=== PATIENT | female | born 1940 | race American Indian/Alaskan Native ===

== ENCOUNTER 2018-12-11 20:59 | Inpatient (IN) | payer MEDICARE ==
[2018-12-11] MEDS ORDERED: DIPRIVAN 10 MG/ML 1,000 MG/100 ML BOTTLE IV SCH ×2 (21:10→22:00)
[2018-12-11] MEDS ORDERED: DIPRIVAN 10 MG/ML 1,000 MG/100 ML BOTTLE IV ONE (21:14)
[2018-12-11] MEDS ORDERED: LEVOPHED DRIP 4 MG/NS 250 ML 4 MG/250 ML BAG IV ONE (21:20)
[2018-12-11] MEDS ORDERED: NACL 0.9% 1000 ML 1,000 ML IV ONE ×2 (21:25→22:31)
[2018-12-11] MEDS ORDERED: LEVOPHED DRIP 4 MG/NS 250 ML 4 MG/250 ML BAG IV SCH (21:25)
[2018-12-11] MEDS ORDERED: ASPIRIN PR ONE ×2 (21:25→23:00)
[2018-12-11] MEDS ORDERED: ARTIFICIAL TEARS OPHTH OINT OU PRN (21:26)
[2018-12-11] MEDS ORDERED: VASELINE LIP THERAPY TP PRN ×2 (21:26→21:59)
[2018-12-11 21:35] LABS: Hematocrit 30.8 % (30.3-42.9); Hemoglobin 10.2 gm/dl (10.1-14.3); Mean Corpuscular HGB Conc 33 % (30-34); Mean Corpuscular Volume 90 fl (79-97); Platelet Count 147 K/mm3 (140-440); Red Blood Count 3.44 M/mm3 (3.65-5.03); Red Cell Distribution Width 17.9 % (13.2-15.2)
[2018-12-11 21:45] LABS: INR 1.58 (0.87-1.13); Partial Thromboplastin Time 31.5 Sec. (24.2-36.6)
[2018-12-11 21:58] LABS: Alanine Aminotransferase 12 units/L (7-56); Albumin 3.4 g/dL (3.9-5); BUN/Creatinine Ratio 13; Blood Urea Nitrogen 18 mg/dL (7-17); Calcium 8.6 mg/dL (8.4-10.2); Hemolysis Index 22
--- NOTE | 2018-12-11 22:14 | Emergency Department Report ---
ED General Adult HPI - General Chief complaint: Cardiac Arrest/CPR Stated complaint: CARDIAC ARREST Time Seen by Provider: 12/11/18 21:24 Source: EMS Mode of arrival: Stretcher Limitations: Physical Limitation - History of Present Illness Initial comments: Patient is a 78-year-old female with past medical history of coronary disease status post three-vessel CABG in 2007 and a pacemaker placed in 2016 who is here's after cardiac arrest. The daughter states that they're traveling from [place]. Patient was having some chest discomfort and shortness of breath yesterday and a jamia and was seen the emergency department. Patient had "some testing done which was okay" according to her daughter. They wanted to interrogate her device however they were unable to the patient was eventually discharged back with family. Patient's according to her daughter who was feeling much improved this morning and was reactive. [place] hotel and after a long walk started feeling ill again. Patient was very weak and fatigued. Daughter states that she had an episode where she was losing consciousness and eventually stop breathing. There is no seizure-like activity noted. Medics were called and the patient was in V. tach on their arrival. Patient was shocked 5 times. Patient started on amiodarone. The patient on arrival had return of spontaneous circulation. Patient was unresponsive but did have a slight gag during intubation. Patient had no purposeful movements and would not open her eyes on command. Is unknown whether the patient had a chest pain shortness of breath today as family is unable to provide this information. Severity scale (0 -10): 0 - Related Data Home Medications Medication Instructions Recorded Confirmed Last Taken Apixaban [Eliquis] 5 mg PO BID 12/11/18 12/11/18 12/11/18 Carvedilol [Coreg] 3.125 mg PO BID 12/11/18 12/11/18 12/11/18 Clopidogrel [Plavix] 75 mg PO QDAY 12/11/18 12/11/18 12/11/18 Digoxin [Lanoxin] 0.125 mg PO DAILY 12/11/18 12/11/18 12/11/18 Donepezil [Aricept] 5 mg PO QDAY 12/11/18 12/11/18 12/11/18 Escitalopram [Lexapro] 20 mg PO DAILY 12/11/18 12/11/18 12/11/18 Fluticasone [Flonase] 1 spray NS QDAY 12/11/18 12/11/18 12/11/18 Fluticasone/Umeclidin/Vilanter 1 each IH PRN 12/11/18 12/11/18 12/11/18 [Trelegy Ellipta 100-62.5-25] Furosemide [Lasix] 20 mg PO QDAY 12/11/18 12/11/18 12/11/18 Lactulose 10 gm PO TID 12/11/18 12/11/18 12/11/18 Levothyroxine [Synthroid] 50 mcg PO QAM 12/11/18 12/11/18 12/11/18 Memantine [Namenda] 10 mg PO BID 12/11/18 12/11/18 12/11/18 Midodrine [Proamatine] 2.5 mg PO BID 12/11/18 12/11/18 12/11/18 Montelukast [Singulair] 10 mg PO QPM 12/11/18 12/11/18 12/11/18 Nitroglycerin [Nitrostat] 0.4 mg SL Q5M PRN 12/11/18 12/11/18 12/11/18 Nortriptyline HCl [Pamelor] 75 mg PO DAILY 12/11/18 12/11/18 12/11/18 Pantoprazole [Protonix] 40 mg PO QDAY 12/11/18 12/11/18 12/11/18 Potassium Chloride [K-Dur] 20 meq PO QDAY 12/11/18 12/11/18 12/11/18 Rosuvastatin Calcium [Crestor] 20 mg PO DAILY 12/11/18 12/11/18 12/11/18 busPIRone [Buspar] 10 mg PO BID 12/11/18 12/11/18 12/11/18 Allergies Allergy/AdvReac Type Severity Reaction Status Date / Time Penicillins Allergy Itching Verified 07/10/16 20:01 theophylline Allergy Itching Verified 07/10/16 20:01 ED Review of Systems ROS: Stated complaint: CARDIAC ARREST Other details as noted in HPI Comment: Unobtainable due to pts medical conditions ED Past Medical Hx - Past Medical History Hx Hypertension: Yes Hx Heart Attack/AMI: Yes Hx Asthma: Yes Hx COPD: Yes - Surgical History Hx Coronary Stent: Yes Hx Open Heart Surgery: Yes Hx Pacemaker: Yes Additional Surgical History: thyroid. - Social History Smoking Status: Unknown if ever smoked - Medications Home Medications: Home Medications Medication Instructions Recorded Confirmed Last Taken Type Apixaban [Eliquis] 5 mg PO BID 12/11/18 12/11/18 12/11/18 History Carvedilol [Coreg] 3.125 mg PO BID 12/11/18 12/11/18 12/11/18 History Clopidogrel [Plavix] 75 mg PO QDAY 12/11/18 12/11/18 12/11/18 History Digoxin [Lanoxin] 0.125 mg PO DAILY 12/11/18 12/11/18 12/11/18 History Donepezil [Aricept] 5 mg PO QDAY 12/11/18 12/11/18 12/11/18 History Escitalopram [Lexapro] 20 mg PO DAILY 12/11/18 12/11/18 12/11/18 History Fluticasone [Flonase] 1 spray NS QDAY 12/11/18 12/11/18 12/11/18 History Fluticasone/Umeclidin/Vilanter 1 each IH PRN 12/11/18 12/11/18 12/11/18 History [Trelegy Ellipta 100-62.5-25] Furosemide [Lasix] 20 mg PO QDAY 12/11/18 12/11/18 12/11/18 History Lactulose 10 gm PO TID 12/11/18 12/11/18 12/11/18 History Levothyroxine [Synthroid] 50 mcg PO QAM 12/11/18 12/11/18 12/11/18 History Memantine [Namenda] 10 mg PO BID 12/11/18 12/11/18 12/11/18 History Midodrine [Proamatine] 2.5 mg PO BID 12/11/18 12/11/18 12/11/18 History Montelukast [Singulair] 10 mg PO QPM 12/11/18 12/11/18 12/11/18 History Nitroglycerin [Nitrostat] 0.4 mg SL Q5M PRN 12/11/18 12/11/18 12/11/18 History Nortriptyline HCl [Pamelor] 75 mg PO DAILY 12/11/18 12/11/18 12/11/18 History Pantoprazole [Protonix] 40 mg PO QDAY 12/11/18 12/11/18 12/11/18 History Potassium Chloride [K-Dur] 20 meq PO QDAY 12/11/18 12/11/18 12/11/18 History Rosuvastatin Calcium [Crestor] 20 mg PO DAILY 12/11/18 12/11/18 12/11/18 History busPIRone [Buspar] 10 mg PO BID 12/11/18 12/11/18 12/11/18 History ED Physical Exam - General Limitations: Physical Limitation General appearance: obtunded - Head Head exam: Present: atraumatic, normocephalic - Eye Eye exam: Present: normal appearance, PERRL, EOMI - ENT ENT exam: Present: normal orophraynx, mucous membranes moist - Neck Neck exam: Present: normal inspection - Respiratory Respiratory exam: Present: other (agonal respirations). Absent: respiratory distress, wheezes, rales, rhonchi - Cardiovascular Cardiovascular Exam: Present: normal rhythm, bradycardia. Absent: systolic murmur, diastolic murmur, rubs, gallop - GI/Abdominal GI/Abdominal exam: Present: soft, normal bowel sounds. Absent: distended, tenderness, guarding, rebound - Extremities Exam Extremities exam: Present: normal inspection, other (patient has an IO in the right tibia) - Back Exam Back exam: Present: normal inspection - Skin Skin exam: Present: warm, dry, intact, normal color. Absent: rash ED Course Vital Signs 12/11/18 12/11/18 12/11/18 21:00 21:02 21:06 Pulse Rate 71 81 65 Respiratory 18 14 12 Rate Blood Pressure 90/58 Blood Pressure 90/58 [Left] O2 Sat by Pulse 89 75 L 81 L Oximetry 12/11/18 12/11/18 12/11/18 21:10 21:16 21:20 Pulse Rate 66 55 L 54 L Respiratory 19 21 24 Rate Blood Pressure 131/110 131/110 84/50 Blood Pressure [Left] O2 Sat by Pulse 100 100 100 Oximetry 12/11/18 12/11/18 12/11/18 21:26 21:30 21:36 Pulse Rate 55 L 55 L 61 Respiratory 24 24 24 Rate Blood Pressure 84/50 80/51 65/36 Blood Pressure [Left] O2 Sat by Pulse 100 100 98 Oximetry 12/11/18 12/11/18 12/11/18 21:40 21:45 21:46 Pulse Rate 79 73 77 Respiratory 24 24 Rate Blood Pressure 120/81 136/86 135/87 Blood Pressure [Left] O2 Sat by Pulse 99 100 99 Oximetry 12/11/18 12/11/18 12/11/18 21:50 21:56 22:01 Pulse Rate 75 72 73 Respiratory 24 24 24 Rate Blood Pressure 130/82 136/86 Blood Pressure [Left] O2 Sat by Pulse 100 100 100 Oximetry 12/11/18 12/11/18 12/11/18 22:05 22:11 22:15 Pulse Rate 73 77 79 Respiratory 24 24 17 Rate Blood Pressure 136/86 141/91 141/91 Blood Pressure [Left] O2 Sat by Pulse 100 100 100 Oximetry 12/11/18 12/11/18 12/11/18 22:21 22:25 22:31 Pulse Rate 78 78 78 Respiratory 24 24 24 Rate Blood Pressure 141/86 141/86 150/96 Blood Pressure [Left] O2 Sat by Pulse 100 99 100 Oximetry 12/11/18 12/11/18 12/11/18 22:35 22:41 22:45 Pulse Rate 82 83 84 Respiratory 24 24 24 Rate Blood Pressure 150/96 151/95 151/95 Blood Pressure [Left] O2 Sat by Pulse 100 100 100 Oximetry 12/11/18 12/11/18 12/11/18 23:07 23:11 23:15 Pulse Rate 79 81 79 Respiratory 23 24 24 Rate Blood Pressure 146/89 146/89 138/88 Blood Pressure [Left] O2 Sat by Pulse 100 100 Oximetry 12/11/18 12/11/18 12/11/18 23:21 23:25 23:48 Pulse Rate 76 73 Respiratory 24 24 Rate Blood Pressure 130/78 128/77 Blood Pressure [Left] O2 Sat by Pulse 100 100 100 Oximetry - Reevaluation(s) Reevaluation #1: 12/11/18 22:13 Dr. Ragland with radiology call and stated that the ET tube was in the right mainstem. Respiratory was alerted at this time to move the tube back 3 cm. - Central Line Placement Left IJ Consent Obtained: emergent situation Time Out Performed: Yes Patient Placed on Monitor/Pulse Ox: Yes MD Prep: mask, gown, gloves Central Line Prep: Chlorhexidine scrub Ultrasound Used for Placement: Yes Central Line Lumen Inserted: triple Bloods Obtained for Lab: Yes Central Line Position: good blood return, all ports aspirated, flus, sutured in place with 2-0 Dressing Applied: Tegaderm Post Procedure X-Ray: tip of catheter in good p - Intubation Time Out Performed: Yes Laryngoscope: Mac Size: 3 ET Tube Size: 7.5 Tube Secured Depth (cm): 22 Tube Secured Location: lips Tube Placement Confirmation: visualized tube passing t, equal breath sounds bilat, no breath sounds over epi Patient Tolerated Procedure: no complications Intubation Complications: none ED Medical Decision Making - Lab Data Result diagrams: 12/11/18 21:30 12/11/18 21:30 Lab Results 12/11/18 12/11/18 12/11/18 Range/Units 21:30 21:30 21:30 WBC 7.6 (4.5-11.0) K/mm3 RBC 3.44 L (3.65-5.03) M/mm3 Hgb 10.2 (10.1-14.3) gm/dl Hct 30.8 (30.3-42.9) % MCV 90 (79-97) fl MCH 30 (28-32) pg MCHC 33 (30-34) % RDW 17.9 H (13.2-15.2) % Plt Count 147 (140-440) K/mm3 Add Manual Diff Complete Total Counted 100 Seg Neutrophils % Manager Of Drilling Seg Neuts % (Manual) 35.0 L (40.0-70.0) % Band Neutrophils % 0 % Lymphocytes % (Manual) 51.0 H (13.4-35.0) % Reactive Lymphs % (Man) 0 % Monocytes % (Manual) 8.0 H (0.0-7.3) % Eosinophils % (Manual) 5.0 H (0.0-4.3) % Basophils % (Manual) 1.0 (0.0-1.8) % Metamyelocytes % 0 % Myelocytes % 0 % Promyelocytes % 0 % Blast Cells % 0 % Nucleated RBC % Not Reportable Seg Neutrophils # Man 2.7 (1.8-7.7) K/mm3 Band Neutrophils # 0.0 K/mm3 Lymphocytes # (Manual) 3.9 (1.2-5.4) K/mm3 Abs React Lymphs (Man) 0.0 K/mm3 Monocytes # (Manual) 0.6 (0.0-0.8) K/mm3 Eosinophils # (Manual) 0.4 (0.0-0.4) K/mm3 Basophils # (Manual) 0.1 (0.0-0.1) K/mm3 Metamyelocytes # 0.0 K/mm3 Myelocytes # 0.0 K/mm3 Promyelocytes # 0.0 K/mm3 Blast Cells # 0.0 K/mm3 WBC Morphology Not Reportable Hypersegmented Neuts Not Reportable Hyposegmented Neuts Not Reportable Hypogranular Neuts Not Reportable Smudge Cells Not Reportable Toxic Granulation Not Reportable Toxic Vacuolation Not Reportable Dohle Bodies Not Reportable Pelger-Huet Anomaly Not Reportable Josefa Rods Not Reportable Platelet Estimate Consistent w auto Clumped Platelets Not Reportable Plt Clumps, EDTA Not Reportable Large Platelets Few Giant Platelets Not Reportable Platelet Satelliting Not Reportable Plt Morphology Comment Not Reportable RBC Morphology Not Reportable Dimorphic RBCs Not Reportable Polychromasia Not Reportable Hypochromasia Not Reportable Poikilocytosis Not Reportable Anisocytosis 1+ Microcytosis Not Reportable Macrocytosis Not Reportable Spherocytes Not Reportable Pappenheimer Bodies Not Reportable Sickle Cells Not Reportable Target Cells Not Reportable Tear Drop Cells Not Reportable Ovalocytes Few Helmet Cells Not Reportable Mohan-[place] Bodies Not Reportable Sparks Rings Not Reportable Leslie Cells Not Reportable Bite Cells Not Reportable Crenated Cell Not Reportable Elliptocytes Not Reportable Acanthocytes (Spur) Not Reportable Rouleaux Not Reportable Hemoglobin C Crystals Not Reportable Schistocytes Not Reportable Malaria parasites Not Reportable Daren Bodies Not Reportable Hem Pathologist Commnt No PT 18.5 H (12.2-14.9) Sec. INR 1.58 H (0.87-1.13) APTT 31.5 (24.2-36.6) Sec. D-Dimer 3643.18 H (0-234) ng/mlDDU Sodium 136 L (137-145) mmol/L Potassium 5.3 H (3.6-5.0) mmol/L Chloride 97.2 L (98-107) mmol/L Carbon Dioxide 20 L (22-30) mmol/L Anion Gap 24 mmol/L BUN 18 H (7-17) mg/dL Creatinine 1.4 H (0.7-1.2) mg/dL Estimated GFR 36 ml/min BUN/Creatinine Ratio 13 % Glucose 137 H (65-100) mg/dL Calcium 8.6 (8.4-10.2) mg/dL Total Bilirubin 0.30 (0.1-1.2) mg/dL AST 35 (5-40) units/L ALT 12 (7-56) units/L Alkaline Phosphatase 85 (35-129) units/L Troponin T < 0.010 (0.00-0.029) ng/mL Total Protein 7.5 (6.3-8.2) g/dL Albumin 3.4 L (3.9-5) g/dL Albumin/Globulin Ratio 0.8 % - EKG Data -: EKG Interpreted by Ar - EKG Data 12/12/18 00:13 EKG shows sinus rhythm with a rate of 66 is a right bundle-branch block and left anterior fifth circular block present. Patient has a IV CD has prolonged QRS complex. QTc is prolonged as well. [place] is leftward. - Radiology Data [facility] [address] [place] [address] Cat Scan Report Signed Patient: ROEBRTO RAGLAND MR#: [id number] : 1940 Acct:[id number] Age/Sex: 78 / F ADM Date: 12/11/18 Loc: ED Attending Dr: Ordering Physician: RASHAAD WOODS MD Date of Service: 12/11/18 Procedure(s): CT angio chest Accession Number(s): [id number] cc: RASHAAD WOODS MD CT angio chest INDICATION / CLINICAL INFORMATION: s/p cardiac arrest, elevated ddimer. TECHNIQUE: Precontrast bolus timing images were obtained followed by postcontrast axial and reformatted images. 3-plane MIP reconstructions were performed at an independent workstation by the technologist. All CT scans at this location are performed using CT dose reduction for ALARA by means of automated exposure control. COMPARISON: None available. FINDINGS: Pulmonary arterial enhancement is normal bilaterally. No pulmonary embolism. Heart is mildly enlarged with no evidence of pericardial effusion. No mediastinal adenopathy. The endotracheal tube and nasogastric tubes appear in satisfactory position. No acute interstitial or airspace pulmonary disease. Mild dependent atelectasis is identified in both lower lobes. Limited upper abdominal images are remarkable for punctate calcifications in the renal collecting systems bilaterally without hydronephrosis. Skeletal structures are normal. IMPRESSION: 1. No evidence of pulmonary embolus or acute lung disease. 2. Mild cardiomegaly. 3. Bilateral nephrolithiasis without hydronephrosis. Signer Name: Juan Velasco MD Signed: 12/11/2018 11:27 PM Workstation Name: [id number] Transcribed By: FLACO Dictated By: Juan Velasco MD Electronically Authenticated By: Juan Velasco MD Signed Date/Time: 12/11/182326 DD/ 21 TD/TT: - Medical Decision Making Patient is a 78-year-old Citizen Of [place] female who is here status post successful resuscitation after a cardiac arrest. Patient was intubated by me. Please see procedure note for intubation and central line placement. Patient had a stable blood pressure after return of spontaneous circulation. Blood pressure DROPPED slightly after the propofol was started for sedation as the patient was opening her eyes and gagging after the intubation. Patient started on low-dose leave the which did stabilize blood pressure very well. Patient's first troponin is normal. EKG is consistent with pacemaker device. CTA of the chest was performe d secondary to a very elevated d-dimer however no pulmonary embolus was found. Patient will be admitted to the hospitalist service to the ICU under Dr. Bishop. Critical Care Time: Yes (45) Critical care attestation.: If time is entered above; I have spent that time in minutes in the direct care of this critically ill patient, excluding procedure time. ED Disposition Clinical Impression: Cardiac arrest Disposition: OP ADMIT IP TO THIS HOSP Is pt being admited?: Yes Does the pt Need Aspirin: No Condition: Stable Referrals: PRIMARY CARE, [Primary Care Provider] - 3-5 Days Time of Disposition: 00:31
[2018-12-11 22:36] LABS: Total Cells Counted 100
[2018-12-11 22:37] LABS: Anisocytosis 1+; Large Platelets Few; Platelet Estimate Consistent w Auto
[2018-12-11 22:38] LABS: Ovalocytes Few
--- NOTE | 2018-12-11 23:32 | Cat Scan Report ---
CT angio chest INDICATION / CLINICAL INFORMATION: s/p cardiac arrest, elevated ddimer. TECHNIQUE: Precontrast bolus timing images were obtained followed by postcontrast axial and reformatted images. 3-plane MIP reconstructions were performed at an independent workstation by the technologist. All CT scans at this location are performed using CT dose reduction for ALARA by means of automated exposure control. COMPARISON: None available. FINDINGS: Pulmonary arterial enhancement is normal bilaterally. No pulmonary embolism. Heart is mildly enlarged with no evidence of pericardial effusion. No mediastinal adenopathy. The endotracheal tube and nasogastric tubes appear in satisfactory position. No acute interstitial or airspace pulmonary disease. Mild dependent atelectasis is identified in both lower lobes. Limited upper abdominal images are remarkable for punctate calcifications in the renal collecting sys tems bilaterally without hydronephrosis. Skeletal structures are normal. IMPRESSION: 1. No evidence of pulmonary embolus or acute lung disease. 2. Mild cardiomegaly. 3. Bilateral nephrolithiasis without hydronephrosis. Signer Name: Juan Velasco MD Signed: 12/11/2018 11:27 PM Workstation Name: [id number]
[2018-12-12] MEDS ORDERED: ZOFRAN IV PRN (00:38)
[2018-12-12] MEDS ORDERED: SODIUM CHLORIDE FLUSH SYRINGE 10 ML IV PRN (00:38)
--- NOTE | 2018-12-12 00:55 | History and Physical Report ---
History of Present Illness Date of examination: 12/12/18 History of present illness: 78 -year-old woman with a history of coronary artery disease, hypertension, hypothyroidism, COPD was brought to the emergency room for evaluation. The granddaughter at bedside state that yesterday day 12 from [place] to [facility] for basketball tournament. Patient climbed a flight of stairs, shortly after which she looked pale and slumped over. She was brought to the hospital for evaluation, they were unable to interrogate her pacemaker, she stated that the patient was discharged from the hospital. Today they returned to the hotel here in [place], stated that the patient had the same level of looking ill, she then had a syncopal episode. EMS was called, she was found to be in V. tach and shock 5 times, given amiodarone and was intubated here in the emergency room. patient became hypotensive when propofol drip was started, sterted on levophed drip. Review of systems unobtainable PAST MEDICAL HISTORY:coronary artery disease, hypertension, hypothyroidism, COPD PAST SURGICAL HISTORY : Pacemaker, CABG, thyroidectomy SOCIAL HISTORY: Denies alcohol, drugs, tobacco FAMILY HISTORY: Hypertension Medications and Allergies Allergies Allergy/AdvReac Type Severity Reaction Status Date / Time Penicillins Allergy Itching Verified 07/10/16 20:01 theophylline Allergy Itching Verified 07/10/16 20:01 Home Medications Medication Instructions Recorded Confirmed Last Taken Type Apixaban [Eliquis] 5 mg PO BID 12/11/18 12/11/18 12/11/18 History Carvedilol [Coreg] 3.125 mg PO BID 12/11/18 12/11/18 12/11/18 History Clopidogrel [Plavix] 75 mg PO QDAY 12/11/18 12/11/18 12/11/18 History Digoxin [Lanoxin] 0.125 mg PO DAILY 12/11/18 12/11/18 12/11/18 History Donepezil [Aricept] 5 mg PO QDAY 12/11/18 12/11/18 12/11/18 History Escitalopram [Lexapro] 20 mg PO DAILY 12/11/18 12/11/18 12/11/18 History Fluticasone [Flonase] 1 spray NS QDAY 12/11/18 12/11/18 12/11/18 History Fluticasone/Umeclidin/Vilanter 1 each IH PRN 12/11/18 12/11/18 12/11/18 History [Trelegy Ellipta 100-62.5-25] Furosemide [Lasix] 20 mg PO QDAY 12/11/18 12/11/18 12/11/18 History Lactulose 10 gm PO TID 12/11/18 12/11/18 12/11/18 History Levothyroxine [Synthroid] 50 mcg PO QAM 12/11/18 12/11/18 12/11/18 History Memantine [Namenda] 10 mg PO BID 12/11/18 12/11/18 12/11/18 History Midodrine [Proamatine] 2.5 mg PO BID 12/11/18 12/11/18 12/11/18 History Montelukast [Singulair] 10 mg PO QPM 12/11/18 12/11/18 12/11/18 History Nitroglycerin [Nitrostat] 0.4 mg SL Q5M PRN 12/11/18 12/11/18 12/11/18 History Nortriptyline HCl [Pamelor] 75 mg PO DAILY 12/11/18 12/11/18 12/11/18 History Pantoprazole [Protonix] 40 mg PO QDAY 12/11/18 12/11/18 12/11/18 History Potassium Chloride [K-Dur] 20 meq PO QDAY 12/11/18 12/11/18 12/11/18 History Rosuvastatin Calcium [Crestor] 20 mg PO DAILY 12/11/18 12/11/18 12/11/18 History busPIRone [Buspar] 10 mg PO BID 12/11/18 12/11/18 12/11/18 History Active Meds: Active Medications Acetaminophen (Tylenol) 650 mg PO Q4H PRN PRN Reason: Pain MILD(1-3)/Fever >100.5/STAPLES Enoxaparin Sodium (Lovenox) 30 mg SUB-Q QDAY KAVITHA Hydrophilic Ointment (Vaseline Lip Therapy) 1 applic TP Q2HR PRN PRN Reason: Dry Lips Propofol (Diprivan 10 Mg/Ml) 1,000 mg in 100 mls @ 2.1 mls/hr IV TITR KAVITHA; Protocol Last Titration: 12/11/18 22:00 Dose: 10 mcg/kg/min, 4.2 mls/hr Documented by: Norepinephrine (Levophed Drip 4 Mg/Ns 250 Ml) 4 mg in 250 mls @ 18.75 mls/hr IV TITR KAVITHA; Protocol Last Titration: 12/12/18 00:54 Dose: 0 mcg/min, 0 mls/hr Documented by: Amiodarone HCl 900 mg/ (Dextrose) 500 mls @ 33.333 mls/hr IV DIRECT KAVITHA; Protocol Sodium Chloride (Nacl 0.9% 1000 Ml) 1,000 mls @ 125 mls/hr IV DIRECT KAVITHA Multi-Ingred Cream/Lotion/Oil/Oint (Artificial Tears Ophth Oint) 1 applic OU Q4HR PRN PRN Reason: Dry Eye(s) Ondansetron HCl (Zofran) 4 mg IV Q8H PRN PRN Reason: Nausea And Vomiting Sodium Chloride (Sodium Chloride Flush Syringe 10 Ml) 10 ml IV BID KAVITHA Sodium Chloride (Sodium Chloride Flush Syringe 10 Ml) 10 ml IV PRN PRN PRN Reason: LINE FLUSH Exam - Physical Exam Narrative exam: General Apperance: The patient lying in bed, breathing comfortable, intubated HEENT: Normocephalic, atraumatic. Pupils equally round and reactive to light, unable to do EOM, no sclericterus or JVD or thyromegaly or nodule. , no carotid bruit, mucous membranes moist, unable to examine oral cavity, ET tube in place Heart: S1-S2, regular is rhythm Lungs: Clear to auscultation bilaterally, breathing comfortable Abdomen: Positive bowel sounds, soft, nondistended, no organomegaly Extremities: No edema cyanosis clubbing Skin: no rash, nodule, warm and dry Neuro: Sedated - Constitutional Vitals: Temp Pulse Resp BP Pulse Ox 78 24 142/84 100 12/12/18 00:30 12/11/18 23:25 12/12/18 00:30 12/12/18 00:30 Results - Labs CBC & Chem 7: 12/14/18 04:20 12/14/18 04:20 Labs: Abnormal lab results 12/11/18 12/11/18 12/11/18 Range/Units 21:30 21:30 21:30 RBC 3.44 L (3.65-5.03) M/mm3 RDW 17.9 H (13.2-15.2) % Seg Neuts % (Manual) 35.0 L (40.0-70.0) % Lymphocytes % (Manual) 51.0 H (13.4-35.0) % Monocytes % (Manual) 8.0 H (0.0-7.3) % Eosinophils % (Manual) 5.0 H (0.0-4.3) % PT 18.5 H (12.2-14.9) Sec. INR 1.58 H (0.87-1.13) D-Dimer 3643.18 H (0-234) ng/mlDDU POC ABG pO2 (80-105) Sodium 136 L (137-145) mmol/L Potassium 5.3 H (3.6-5.0) mmol/L Chloride 97.2 L (98-107) mmol/L Carbon Dioxide 20 L (22-30) mmol/L BUN 18 H (7-17) mg/dL Creatinine 1.4 H (0.7-1.2) mg/dL Glucose 137 H (65-100) mg/dL Albumin 3.4 L (3.9-5) g/dL 12/11/18 Range/Units 22:35 RBC (3.65-5.03) M/mm3 RDW (13.2-15.2) % Seg Neuts % (Manual) (40.0-70.0) % Lymphocytes % (Manual) (13.4-35.0) % Monocytes % (Manual) (0.0-7.3) % Eosinophils % (Manual) (0.0-4.3) % PT (12.2-14.9) Sec. INR (0.87-1.13) D-Dimer (0-234) ng/mlDDU POC ABG pO2 344 H (80-105) Sodium (137-145) mmol/L Potassium (3.6-5.0) mmol/L Chloride (98-107) mmol/L Carbon Dioxide (22-30) mmol/L BUN (7-17) mg/dL Creatinine (0.7-1.2) mg/dL Glucose (65-100) mg/dL Albumin (3.9-5) g/dL - Imaging and Cardiology Chest x-ray: report reviewed CT scan - chest: report reviewed Assessment and Plan Assessment Cardiac arrest Acute respiratory failure V. tach Renal insufficiency, probably acute Hypotension Coronary artery disease Hypothyroidism Thrombocytopenia Plan Check cardiac enzymes, echo, consult cardiology Consult critical care, continue amiodarone drip Continue sedation with propofol, start IV fluid [employer] consulted to see patient, discussed with him DVT prophylaxis prognosis guarded
[2018-12-12 00:56] LABS: Amphetamine Screen,Urine PRESUMPTIVE NEGATIVE; Benzodiazepines Screen,Urine PRESUMPTIVE NEGATIVE; Bilirubin,Urine NEG (Negative); Blood,Urine NEG (Negative); Cannabinoid Screen,Urine PRESUMPTIVE NEGATIVE; Cocaine Screen,Urine PRESUMPTIVE NEGATIVE; Color,Urine Yellow (Yellow); Hyaline Casts,Urine 1 /LPF; Methadone Screen,Urine PRESUMPTIVE NEGATIVE; Opiate Screen,Urine PRESUMPTIVE NEGATIVE; Protein,Urine <15 mg/dL mg/dL (Negative); Urobilinogen,Urine < 2.0 mg/dL (<2.0)
[2018-12-12] MEDS: CORDARONE 900 MG in D5W 482 ML IV SCH ×2 (01:24→18:38)
[2018-12-12 03:12] LABS: Chol/HDL Ratio 2.14 %
[2018-12-12 03:25] LABS: Basophils % (Auto) 0.3 % (0.0-1.8); Eosinophils # (Auto) 0.1 K/mm3 (0.0-0.4); Eosinophils % (Auto) 0.6 % (0.0-4.3); Hematocrit 27.9 % (30.3-42.9); Hemoglobin 9.2 gm/dl (10.1-14.3); Lymphocytes # (Auto) 1.5 K/mm3 (1.2-5.4); Lymphocytes % (Auto) 16.2 % (13.4-35.0); Mean Corpuscular HGB Conc 33 % (30-34); Mean Corpuscular Volume 89 fl (79-97); Monocytes # (Auto) 0.7 K/mm3 (0.0-0.8); Monocytes % (Auto) 7.2 % (0.0-7.3); Platelet Count 127 K/mm3 (140-440); Red Blood Count 3.16 M/mm3 (3.65-5.03); Red Cell Distribution Width 17.7 % (13.2-15.2)
--- NOTE | 2018-12-12 03:34 | XRay Report ---
CHEST 1 VIEW INDICATION / CLINICAL INFORMATION: follow up respiratory failure. COMPARISON: 12/11/2018 FINDINGS: SUPPORT DEVICES: The endotracheal tube is now in satisfactory position. NG tube is in the stomach. HEART / MEDIASTINUM: No significant abnormality. LUNGS / PLEURA: Minimal right pleural effusion. No pneumothorax. ADDITIONAL FINDINGS: No significant additional findings. IMPRESSION: 1. No acute findings. Signer Name: Juan Velasco MD Signed: 12/12/2018 3:30 AM Workstation Name: [employer]
[2018-12-12 03:42] LABS: Calcium 7.5 mg/dL (8.4-10.2)
[2018-12-12 03:56] LABS: Creatine Kinase MB 6.9 ng/mL (0.0-4.0)
[2018-12-12] MEDS ORDERED: NACL 0.9% 1000 ML 1,000 ML ONE ×3 (05:18→05:19)
[2018-12-12] MEDS: NACL 0.9% 1000 ML 1,000 ML IV SCH ×3 (05:23→21:20)
[2018-12-12 07:35] LABS: Creatine Kinase MB 9.4 ng/mL (0.0-4.0)
[2018-12-12] MEDS ORDERED: LOVENOX SUB-Q SCH (10:00)
[2018-12-12] MEDS: PEPCID IV SCH (10:49)
[2018-12-12] MEDS: SODIUM CHLORIDE FLUSH SYRINGE 10 ML IV SCH ×2 (10:49→21:20)
--- NOTE | 2018-12-12 11:55 | Consultation ---
History of Present Illness Consult date: 12/12/18 Requesting physician: KASSY INFANTE Consult reason: cardiac arrest History of present illness: The history was obtained from a review of her medical chart since the patient is currently unresponsive and family members are not available to provide a history. According to the ER notes, the patient was traveling with her granddaughter from [place] for a basketball tournament. Two days ago, while climbing a flight of stairs, she was noted to be pale and she slumped. She was taken to the emergency department in [facility] where she was which was evaluated and discharged home. Her ICD apparently could not be evaluated there. Shortly after checking into a hotel in the [place] area, she was reported to have been feeling sick again. Following loss of consciousness, the EMS was activated and she was reportedly found in ventricular tachycardia. She was defibrillated 5 times prior to being transported to the hospital. She was intubated in the field. Upon arrival to the ER, she was noted to be hypotensive. Interrogation of her ICD revealed that she went into ventricular tachycardia and failed ATP. Subsequently, she received more than 15 shocks without conversion. Her arrhythmia was eventually terminated after degeneration into ventricular fibrillation. She is currently off vasopressor support. She is on intravenous amiodarone drip. Although d-dimer is elevated, chest CTA was negative for pulmonary embolism. Past History Past Medical History: CAD, COPD, hypertension, hyperlipidemia, hypothyroidism Past Surgical History: CABG (in 2007), Other (ICD implantation in 2016; thyroidectomy) Social history: other (details not available). denies: smoking, alcohol abuse Family history: other (details not obtainable at this time) Medications and Allergies Allergies Allergy/AdvReac Type Severity Reaction Status Date / Time Penicillins Allergy Itching Verified 07/10/16 20:01 theophylline Allergy Itching Verified 07/10/16 20:01 Home Medications Medication Instructions Recorded Confirmed Last Taken Type Apixaban [Eliquis] 5 mg PO BID 12/11/18 12/11/18 12/11/18 History Carvedilol [Coreg] 3.125 mg PO BID 12/11/18 12/11/18 12/11/18 History Clopidogrel [Plavix] 75 mg PO QDAY 12/11/18 12/11/18 12/11/18 History Digoxin [Lanoxin] 0.125 mg PO DAILY 0712/11/18 12/11/18 History Donepezil [Aricept] 5 mg PO QDAY 12/11/18 12/11/18 12/11/18 History Escitalopram [Lexapro] 20 mg PO DAILY 12/11/18 12/11/18 12/11/18 History Fluticasone [Flonase] 1 spray NS QDAY 12/11/18 12/11/18 12/11/18 History Fluticasone/Umeclidin/Vilanter 1 each IH PRN 12/11/18 12/11/18 12/11/18 History [Trelegy Ellipta 100-62.5-25] Furosemide [Lasix] 20 mg PO QDAY 12/11/18 12/11/18 12/11/18 History Lactulose 10 gm PO TID 12/11/18 12/11/18 12/11/18 History Levothyroxine [Synthroid] 50 mcg PO QAM 12/11/18 12/11/18 12/11/18 History Memantine [Namenda] 10 mg PO BID 12/11/18 12/11/18 12/11/18 History Midodrine [Proamatine] 2.5 mg PO BID 12/11/18 12/11/18 12/11/18 History Montelukast [Singulair] 10 mg PO QPM 12/11/18 12/11/18 12/11/18 History Nitroglycerin [Nitrostat] 0.4 mg SL Q5M PRN 12/11/18 12/11/18 12/11/18 History Nortriptyline HCl [Pamelor] 75 mg PO DAILY 12/11/18 12/11/18 12/11/18 History Pantoprazole [Protonix] 40 mg PO QDAY 12/11/18 12/11/18 12/11/18 History Potassium Chloride [K-Dur] 20 meq PO QDAY 12/11/18 12/11/18 12/11/18 History Rosuvastatin Calcium [Crestor] 20 mg PO DAILY 12/11/18 12/11/18 12/11/18 History busPIRone [Buspar] 10 mg PO BID 12/11/18 12/11/18 12/11/18 History Active Meds: Active Medications Acetaminophen (Tylenol) 650 mg PO Q4H PRN PRN Reason: Pain MILD(1-3)/Fever >100.5/STAPLES Famotidine (Pepcid) 20 mg IV DAILY KAVITHA Last Admin: 12/12/18 10:49 Dose: 20 mg Documented by: Hydrophilic Ointment (Vaseline Lip Therapy) 1 applic TP Q2HR PRN PRN Reason: Dry Lips Propofol (Diprivan 10 Mg/Ml) 1,000 mg in 100 mls @ 2.1 mls/hr IV TITR KAVITHA; Protocol Last Titration: 12/12/18 10:28 Dose: 0 mcg/kg/min, 0 mls/hr Documented by: Norepinephrine (Levophed Drip 4 Mg/Ns 250 Ml) 4 mg in 250 mls @ 18.75 mls/hr IV TITR KAVITHA; Protocol Last Titration: 12/12/18 06:21 Dose: 0 mcg/min, 0 mls/hr Documented by: Amiodarone HCl 900 mg/ (Dextrose) 500 mls @ 33.333 mls/hr IV DIRECT KAVITHA; Protocol Last Titration: 12/12/18 09:15 Dose: 0.5 mg/min, 16.667 mls/hr Documented by: Sodium Chloride (Nacl 0.9% 1000 Ml) 1,000 mls @ 125 mls/hr IV DIRECT KAVITHA Last Admin: 12/12/18 05:23 Dose: 125 mls/hr Documented by: Multi-Ingred Cream/Lotion/Oil/Oint (Artificial Tears Ophth Oint) 1 applic OU Q4HR PRN PRN Reason: Dry Eye(s) Ondansetron HCl (Zofran) 4 mg IV Q8H PRN PRN Reason: Nausea And Vomiting Sodium Chloride (Sodium Chloride Flush Syringe 10 Ml) 10 ml IV BID KAVITHA Last Admin: 12/12/18 10:49 Dose: 10 ml Documented by: Sodium Chloride (Sodium Chloride Flush Syringe 10 Ml) 10 ml IV PRN PRN PRN Reason: LINE FLUSH Review of Systems ROS unobtainable: due to endotracheal tube, due to mental status Physical Examination Vital Signs Last Vital Signs Temp Pulse 64 12/12/18 09:26 Resp 18 12/12/18 09:26 BP 110/60 12/12/18 09:26 Pulse Ox 100 12/12/18 09:26 General appearance: no acute distress, other (unresponsive) HEENT: Positive: EOMI, Normocephaly, Mucus Membranes Moist Neck: Positive: neck supple, trachea midline Cardiac: Positive: Reg Rate and Rhythm, S1/S2 Lungs: Positive: clear to auscultation Neuro: Positive: Other (unresponsive) Abdomen: Positive: Soft, Active Bowel Sounds Skin: Positive: Clear. Negative: Rash Musculoskeletal: No Fluid Collection Extremities: Present: normal. Absent: edema Results 12/12/18 02:30 12/12/18 02:30 Cardiac Enzymes 12/11/18 12/12/18 12/12/18 Range/Units 21:30 02:30 06:45 AST 35 (5-40) units/L CK-MB (CK-2) 6.9 H 9.4 H (0.0-4.0) ng/mL Coagulation 12/11/18 Range/Units 21:30 PT 18.5 H (12.2-14.9) Sec. INR 1.58 H (0.87-1.13) APTT 31.5 (24.2-36.6) Sec. Lipids 12/12/18 Range/Units 00:35 Triglycerides 123 (2-149) mg/dL Cholesterol 88 (50-199) mg/dL HDL Cholesterol 41 (40-59) mg/dL Cholesterol/HDL Ratio 2.14 % CBC 12/11/18 12/12/18 Range/Units 21:30 02:30 WBC 7.6 9.0 (4.5-11.0) K/mm3 RBC 3.44 L 3.16 L (3.65-5.03) M/mm3 Hgb 10.2 9.2 L (10.1-14.3) gm/dl Hct 30.8 27.9 L (30.3-42.9) % Plt Count 147 127 L (140-440) K/mm3 Lymph # 1.5 (1.2-5.4) K/mm3 [place] # 0.7 (0.0-0.8) K/mm3 Eos # 0.1 (0.0-0.4) K/mm3 Baso # 0.0 (0.0-0.1) K/mm3 Comprehensive Metabolic Panel 12/11/18 12/12/18 Range/Units 21:30 02:30 Sodium 136 L 137 (137-145) mmol/L Potassium 5.3 H 4.7 (3.6-5.0) mmol/L Chloride 97.2 L 103.0 (98-107) mmol/L Carbon Dioxide 20 L 18 L (22-30) mmol/L BUN 18 H 23 H (7-17) mg/dL Creatinine 1.4 H 1.4 H (0.7-1.2) mg/dL Glucose 137 H 189 H (65-100) mg/dL Calcium 8.6 7.5 L (8.4-10.2) mg/dL AST 35 (5-40) units/L ALT 12 (7-56) units/L Alkaline Phosphatase 85 (35-129) units/L Total Protein 7.5 (6.3-8.2) g/dL Albumin 3.4 L (3.9-5) g/dL - Imaging and Cardiology Echo: pending EKG: image reviewed EKG interpretations - Telemetry EKG Rhythm: Sinus Rhythm - EKG Sinus rhythms and dysrhythmias: sinus rhythm AV and intraventricular conduction: right bundle branch block, left anterior fascicular Assessment and Plan Continue intravenous amiodarone drip. Obtain echocardiogram. Once family members are available to give additional information, medical records will be requested. She may require ischemic evaluation subsequently after adequate stabilization. - Patient Problems (1) Cardiac arrest Current Visit: Yes Status: Acute (2) Ventricular fibrillation Current Visit: Yes Status: Acute (3) Ventricular tachycardia Current Visit: Yes Status: Acute (4) ICD (implantable cardioverter-defibrillator) discharge Current Visit: Yes Status: Acute (5) Acute respiratory failure Current Visit: Yes Status: Acute (6) Elevated troponin level Current Visit: Yes Status: Acute (7) Thrombocytopenia Current Visit: Yes Status: Acute (8) CAD (coronary artery disease) Current Visit: Yes Status: Chronic Qualifiers: Coronary Disease-Associated Artery/Lesion type: [place] artery (9) Hx of CABG Current Visit: Yes Status: Chronic (10) COPD (chronic obstructive pulmonary disease) Current Visit: Yes Status: Chronic (11) Hypothyroidism Current Visit: Yes Status: Chronic
--- NOTE | 2018-12-12 12:14 | Consultation ---
History of Present Illness Consult date: 12/12/18 Requesting physician: KASSY INFANTE Reason for consult: other (Acute Hypoxemic Resp Failure on MVS; S/P Cardiac Arrest) History of present illness: PULMONARY/CCM CONSULT NOTE (Full dictation # [id number]) Please see dictated notes for full details Past History Past Medical History: CAD, COPD, hypertension, hyperlipidemia, hypothyroidism Past Surgical History: CABG (in 2007), Other (ICD implantation in 2016; thyroidectomy) Social history: other (details not available). denies: smoking, alcohol abuse Family history: other (details not obtainable at this time) Medications and Allergies Allergies Allergy/AdvReac Type Severity Reaction Status Date / Time Penicillins Allergy Itching Verified 07/10/16 20:01 theophylline Allergy Itching Verified 07/10/16 20:01 Home Medications Medication Instructions Recorded Confirmed Last Taken Type Apixaban [Eliquis] 5 mg PO BID 12/11/18 12/11/18 12/11/18 History Carvedilol [Coreg] 3.125 mg PO BID 12/11/18 12/11/18 12/11/18 History Clopidogrel [Plavix] 75 mg PO QDAY 12/11/18 12/11/18 12/11/18 History Digoxin [Lanoxin] 0.125 mg PO DAILY 12/11/18 12/11/18 12/11/18 History Donepezil [Aricept] 5 mg PO QDAY 12/11/18 12/11/18 12/11/18 History Escitalopram [Lexapro] 20 mg PO DAILY 12/11/18 12/11/18 12/11/18 History Fluticasone [Flonase] 1 spray NS QDAY 12/11/18 12/11/18 12/11/18 History Fluticasone/Umeclidin/Vilanter 1 each IH PRN 12/11/18 12/11/18 12/11/18 History [Trelegy Ellipta 100-62.5-25] Furosemide [Lasix] 20 mg PO QDAY 12/11/18 12/11/18 12/11/18 History Lactulose 10 gm PO TID 12/11/18 12/11/18 12/11/18 History Levothyroxine [Synthroid] 50 mcg PO QAM 12/11/18 12/11/18 12/11/18 History Memantine [Namenda] 10 mg PO BID 12/11/18 12/11/18 12/11/18 History Midodrine [Proamatine] 2.5 mg PO BID 12/11/18 12/11/18 12/11/18 History Montelukast [Singulair] 10 mg PO QPM 12/11/18 12/11/18 12/11/18 History Nitroglycerin [Nitrostat] 0.4 mg SL Q5M PRN 12/11/18 12/11/18 12/11/18 History Nortriptyline HCl [Pamelor] 75 mg PO DAILY 12/11/18 12/11/18 12/11/18 History Pantoprazole [Protonix] 40 mg PO QDAY 12/11/18 12/11/18 12/11/18 History Potassium Chloride [K-Dur] 20 meq PO QDAY 12/11/18 12/11/18 12/11/18 History Rosuvastatin Calcium [Crestor] 20 mg PO DAILY 12/11/18 12/11/18 12/11/18 History busPIRone [Buspar] 10 mg PO BID 12/11/18 12/11/18 12/11/18 History Active Meds: Active Medications Acetaminophen (Tylenol) 650 mg PO Q4H PRN PRN Reason: Pain MILD(1-3)/Fever >100.5/STAPLES Albuterol/Ipratropium (Duoneb *Not For Prn Use*) 1 ampul IH Q6HRT KAVITHA Famotidine (Pepcid) 20 mg IV DAILY KAVITHA Last Admin: 12/12/18 10:49 Dose: 20 mg Documented by: Hydrophilic Ointment (Vaseline Lip Therapy) 1 applic TP Q2HR PRN PRN Reason: Dry Lips Propofol (Diprivan 10 Mg/Ml) 1,000 mg in 100 mls @ 2.1 mls/hr IV TITR KAVITHA; Protocol Last Titration: 12/12/18 10:28 Dose: 0 mcg/kg/min, 0 mls/hr Documented by: Norepinephrine (Levophed Drip 4 Mg/Ns 250 Ml) 4 mg in 250 mls @ 18.75 mls/hr IV TITR KAVITHA; Protocol Last Titration: 12/12/18 06:21 Dose: 0 mcg/min, 0 mls/hr Documented by: Amiodarone HCl 900 mg/ (Dextrose) 500 mls @ 33.333 mls/hr IV DIRECT KAVITHA; Protocol Last Titration: 12/12/18 09:15 Dose: 0.5 mg/min, 16.667 mls/hr Documented by: Sodium Chloride (Nacl 0.9% 1000 Ml) 1,000 mls @ 125 mls/hr IV DIRECT KAVITHA Last Admin: 12/12/18 05:23 Dose: 125 mls/hr Documented by: Multi-Ingred Cream/Lotion/Oil/Oint (Artificial Tears Ophth Oint) 1 applic OU Q4HR PRN PRN Reason: Dry Eye(s) Ondansetron HCl (Zofran) 4 mg IV Q8H PRN PRN Reason: Nausea And Vomiting Sodium Chloride (Sodium Chloride Flush Syringe 10 Ml) 10 ml IV BID KAVITHA Last Admin: 12/12/18 10:49 Dose: 10 ml Documented by: Sodium Chloride (Sodium Chloride Flush Syringe 10 Ml) 10 ml IV PRN PRN PRN Reason: LINE FLUSH Physical Examination Vital signs: Vital Signs Pulse Resp BP Pulse Ox 71 18 90/58 89 12/11/18 21:00 12/11/18 21:00 12/11/18 21:00 12/11/18 21:00 Results - Laboratory Findings CBC and BMP: 12/12/18 02:30 12/12/18 02:30 ABG POC ABG pH 7.494 (7.35-7.45) H 12/12/18 03:50 POC ABG pO2 220 (80-105) H 12/12/18 03:50 POC ABG HCO3 20.6 (22-26 mml/L) 12/12/18 03:50 POC ABG Total CO2 21 (23-27mmol/L) 12/12/18 03:50 POC ABG O2 Sat 100 12/12/18 03:50 PT/INR, D-dimer PT 18.5 Sec. (12.2-14.9) H 12/11/18 21:30 INR 1.58 (0.87-1.13) H 12/11/18 21:30 3643.18 ng/mlDDU (0-234) H 12/11/18 21:30 Abnormal lab findings: Abnormal Labs 12/11/18 12/11/18 12/11/18 21:30 21:30 21:30 RBC 3.44 L Hgb Hct RDW 17.9 H Plt Count Seg Neutrophils % Seg Neuts % (Manual) 35.0 L Lymphocytes % (Manual) 51.0 H Monocytes % (Manual) 8.0 H Eosinophils % (Manual) 5.0 H PT 18.5 H INR 1.58 H D-Dimer 3643.18 H POC ABG pH POC ABG pO2 Sodium 136 L Potassium 5.3 H Chloride 97.2 L Carbon Dioxide 20 L BUN 18 H Creatinine 1.4 H Glucose 137 H Calcium Total Creatine Kinase CK-MB (CK-2) Troponin T Albumin 3.4 L LDL Cholesterol Direct 12/11/18 12/12/18 12/12/18 22:35 00:35 02:30 RBC 3.16 L Hgb 9.2 L Hct 27.9 L RDW 17.7 H Plt Count 127 L Seg Neutrophils % 75.7 H Seg Neuts % (Manual) Lymphocytes % (Manual) Monocytes % (Manual) Eosinophils % (Manual) PT INR D-Dimer POC ABG pH POC ABG pO2 344 H Sodium Potassium Chloride Carbon Dioxide BUN Creatinine Glucose Calcium Total Creatine Kinase CK-MB (CK-2) Troponin T 0.106 H* D Albumin LDL Cholesterol Direct 39 L 12/12/18 12/12/18 12/12/18 02:30 02:30 03:50 RBC Hgb Hct RDW Plt Count Seg Neutrophils % Seg Neuts % (Manual) Lymphocytes % (Manual) Monocytes % (Manual) Eosinophils % (Manual) PT INR D-Dimer POC ABG pH 7.494 H POC ABG pO2 220 H Sodium Potassium Chloride Carbon Dioxide 18 L BUN 23 H Creatinine 1.4 H Glucose 189 H Calcium 7.5 L Total Creatine Kinase 431 H CK-MB (CK-2) 6.9 H Troponin T 0.146 H* D Albumin LDL Cholesterol Direct 12/12/18 06:45 RBC Hgb Hct RDW Plt Count Seg Neutrophils % Seg Neuts % (Manual) Lymphocytes % (Manual) Monocytes % (Manual) Eosinophils % (Manual) PT INR D-Dimer POC ABG pH POC ABG pO2 Sodium Potassium Chloride Carbon Dioxide BUN Creatinine Glucose Calcium Total Creatine Kinase 978 H CK-MB (CK-2) 9.4 H Troponin T 0.131 H* Albumin LDL Cholesterol Direct
--- NOTE | 2018-12-12 12:23 | Progress Note ---
Assessment and Plan Assessment and plan: Ventricular tachycardia/fibrillation. Follow-up echocardiogram. Continue intravenous amiodarone drip. She may require ischemic evaluation subsequently after adequate stabilization. Follow-up with cardiac/defibrillator interrogation. Cardiology following. Cardiogenic shock. Continue pressors as needed. Acute hypoxic respiratory failure. Continue mechanical ventilation and wean as tolerated. Patient currently sedated on Diprivan. Pulmonary following. Elevated troponin. Etiology likely secondary to above. Thrombocytopenia. Follow CBC. s/p cardiac arrest. Assessment neurological function off sedation. Consider EEG. CAD. History of CABG. Per cardiology. COPD. Continue bronchodilators. Hypothyroidism. Continue Synthroid. The high probability of a clinically significant, sudden or life threatening deterioration of the [respiratory] system(s) required my full and direct att ention, intervention and personal management. The aggregate critical care time was [32] minutes. This time is in addition to time spent performing reported procedures but includes the following: [x] Data Review and interpretation [x] Patient assessment and monitoring of vital signs [x] Documentation [x] Medication orders and management History Interval history: The history was obtained from a review of her medical chart since the patient is currently unresponsive and family members are not available to provide a history. According to the ER notes, the patient was traveling with her granddaughter from [place] for a basketball tournament. Two days ago, while climbing a flight of stairs, she was noted to be pale and she slumped. She was taken to the emergency department in [facility] where she was which was evaluated and discharged home. Her ICD apparently could not be evaluated there. Shortly after checking into a hotel in the [place] area, she was reported to have been feeling sick again. Following loss of consciousness, the EMS was activated and she was reportedly found in ventricular tachycardia. She was defibrillated 5 times prior to being transported to the hospital. She was intubated in the field. Upon arrival to the ER, she was noted to be hypotensive. Interrogation of her ICD revealed that she went into ventricular tachycardia and failed ATP. Subsequently, she received more than 15 shocks without conversion. Her arrhythmia was eventually terminated after degeneration into ventricular fibrillation. She is currently off vasopressor support. She is on intravenous amiodarone drip. Although d-dimer is elevated, chest CTA was negative for pulmonary embolism. Hospitalist Physical - Constitutional Vitals: Temp Pulse Resp BP Pulse Ox 64 19 110/60 100 12/12/18 11:00 12/12/18 11:00 12/12/18 09:26 12/12/18 11:00 General appearance: Present: no acute distress, other (unresponsive, orally intubated on mechanical ventilation) - EENT Eyes: Present: PERRL, EOM intact ENT: hearing intact, clear oral mucosa, dentition normal - Neck Neck: Present: supple, normal ROM - Respiratory Respiratory effort: normal Respiratory: bilateral: CTA - Cardiovascular Rhythm: regular Heart Sounds: Present: S1 & S2. Absent: gallop, rub - Extremities Extremities: no ischemia, No edema, Full ROM - Abdominal General gastrointestinal: soft, non-tender, non-distended, normal bowel sounds - Integumentary Integumentary: Present: clear, warm, dry - Neurologic Neurologic: CNII-XII intact, moves all extremities Results - Labs CBC & Chem 7: 12/12/18 02:30 12/12/18 02:30 Labs: Laboratory Last Values WBC 9.0 K/mm3 (4.5-11.0) 12/12/18 02:30 RBC 3.16 M/mm3 (3.65-5.03) L 12/12/18 02:30 Hgb 9.2 gm/dl (10.1-14.3) L 12/12/18 02:30 Hct 27.9 % (30.3-42.9) L 12/12/18 02:30 MCV 89 fl (79-97) 12/12/18 02:30 MCH 29 pg (28-32) 12/12/18 02:30 MCHC 33 % (30-34) 12/12/18 02:30 RDW 17.7 % (13.2-15.2) H 12/12/18 02:30 Plt Count 127 K/mm3 (140-440) L 12/12/18 02:30 Lymph % (Auto) 16.2 % (13.4-35.0) 12/12/18 02:30 [place] % (Auto) 7.2 % (0.0-7.3) 12/12/18 02:30 Eos % (Auto) 0.6 % (0.0-4.3) 12/12/18 02:30 Baso % (Auto) 0.3 % (0.0-1.8) 12/12/18 02:30 Lymph # 1.5 K/mm3 (1.2-5.4) 12/12/18 02:30 [place] # 0.7 K/mm3 (0.0-0.8) 12/12/18 02:30 Eos # 0.1 K/mm3 (0.0-0.4) 12/12/18 02:30 Baso # 0.0 K/mm3 (0.0-0.1) 12/12/18 02:30 Add Manual Diff Complete 12/11/18 21:30 Total Counted 100 12/11/18 21:30 Seg Neutrophils % 75.7 % (40.0-70.0) H 12/12/18 02:30 Seg Neuts % (Manual) 35.0 % (40.0-70.0) L 12/11/18 21:30 0 % 12/11/18 21:30 51.0 % (13.4-35.0) H 12/11/18 21:30 Reactive Lymphs % (Man) 0 % 12/11/18 21:30 8.0 % (0.0-7.3) H 12/11/18 21:30 5.0 % (0.0-4.3) H 12/11/18 21:30 1.0 % (0.0-1.8) 12/11/18 21:30 0 % 12/11/18 21:30 0 % 12/11/18 21:30 0 % 12/11/18 21:30 0 % 12/11/18 21:30 Nucleated RBC % Not Reportable 12/11/18 21:30 Seg Neutrophils # 6.8 K/mm3 (1.8-7.7) 12/12/18 02:30 Seg Neutrophils # Man 2.7 K/mm3 (1.8-7.7) 12/11/18 21:30 Band Neutrophils # 0.0 K/mm3 12/11/18 21:30 3.9 K/mm3 (1.2-5.4) 12/11/18 21:30 Abs React Lymphs (Man) 0.0 K/mm3 12/11/18 21:30 0.6 K/mm3 (0.0-0.8) 12/11/18 21:30 0.4 K/mm3 (0.0-0.4) 12/11/18 21:30 0.1 K/mm3 (0.0-0.1) 12/11/18 21:30 0.0 K/mm3 12/11/18 21:30 0.0 K/mm3 12/11/18 21:30 0.0 K/mm3 12/11/18 21:30 Blast Cells # 0.0 K/mm3 12/11/18 21:30 WBC Morphology Not Reportable 12/11/18 21:30 Hypersegmented Neuts Not Reportable 12/11/18 21:30 Hyposegmented Neuts Not Reportable 12/11/18 21:30 Hypogranular Neuts Not Reportable 12/11/18 21:30 Not Reportable 12/11/18 21:30 Not Reportable 12/11/18 21:30 Not Reportable 12/11/18 21:30 Not Reportable 12/11/18 21:30 Not Reportable 12/11/18 21:30 Not Reportable 12/11/18 21:30 Consistent w auto 12/11/18 21:30 Not Reportable 12/11/18 21:30 Plt Clumps, EDTA Not Reportable 12/11/18 21:30 Few 12/11/18 21:30 Not Reportable 12/11/18 21:30 Not Reportable 12/11/18 21:30 Plt Morphology Comment Not Reportable 12/11/18 21:30 RBC Morphology Not Reportable 12/11/18 21:30 Dimorphic RBCs Not Reportable 12/11/18 21:30 Not Reportable 12/11/18 21:30 Not Reportable 12/11/18 21:30 Not Reportable 12/11/18 21:30 1+ 12/11/18 21:30 Not Reportable 12/11/18 21:30 Not Reportable 12/11/18 21:30 Not Reportable 12/11/18 21:30 Not Reportable 12/11/18 21:30 Not Reportable 12/11/18 21:30 Not Reportable 12/11/18 21:30 Not Reportable 12/11/18 21:30 Few 12/11/18 21:30 Not Reportable 12/11/18 21:30 Not Reportable 12/11/18 21:30 Not Reportable 12/11/18 21:30 Not Reportable 12/11/18 21:30 Not Reportable 12/11/18 21:30 Not Reportable 12/11/18 21:30 Not Reportable 12/11/18 21:30 Acanthocytes (Spur) Not Reportable 12/11/18 21:30 Rouleaux Not Reportable 12/11/18 21:30 Not Reportable 12/11/18 21:30 Not Reportable 12/11/18 21:30 Not Reportable 12/11/18 21:30 Not Reportable 12/11/18 21:30 Hem Pathologist Commnt No 12/11/18 21:30 PT 18.5 Sec. (12.2-14.9) H 12/11/18 21:30 INR 1.58 (0.87-1.13) H 12/11/18 21:30 APTT 31.5 Sec. (24.2-36.6) 12/11/18 21:30 3643.18 ng/mlDDU (0-234) H 12/11/18 21:30 POC ABG pH 7.494 (7.35-7.45) H 12/12/18 03:50 POC ABG pO2 220 (80-105) H 12/12/18 03:50 POC ABG HCO3 20.6 (22-26 mml/L) 12/12/18 03:50 POC ABG Total CO2 21 (23-27mmol/L) 12/12/18 03:50 POC ABG O2 Sat 100 12/12/18 03:50 POC ABG Base Excess -3 ((-2) - (+3)mmol/L) 12/12/18 03:50 50 % 12/12/18 03:50 Sodium 137 mmol/L (137-145) 12/12/18 02:30 Potassium 4.7 mmol/L (3.6-5.0) 12/12/18 02:30 Chloride 103.0 mmol/L (98-107) 12/12/18 02:30 Carbon Dioxide 18 mmol/L (22-30) L 12/12/18 02:30 21 mmol/L 12/12/18 02:30 BUN 23 mg/dL (7-17) H 12/12/18 02:30 1.4 mg/dL (0.7-1.2) H 12/12/18 02:30 Estimated GFR 44 ml/min 12/12/18 02:30 16 % 12/12/18 02:30 Glucose 189 mg/dL (65-100) H 12/12/18 02:30 Calcium 7.5 mg/dL (8.4-10.2) L 12/12/18 02:30 Magnesium 1.80 mg/dL (1.7-2.3) 12/12/18 06:45 0.30 mg/dL (0.1-1.2) 12/11/18 21:30 AST 35 units/L (5-40) 12/11/18 21:30 ALT 12 units/L (7-56) 12/11/18 21:30 85 units/L (35-129) 12/11/18 21:30 978 units/L (30-135) H 12/12/18 06:45 CK-MB (CK-2) 9.4 ng/mL (0.0-4.0) H 12/12/18 06:45 CK-MB (CK-2) Rel Index 0.9 (0-4) 12/12/18 06:45 0.131 ng/mL (0.00-0.029) H* 12/12/18 06:45 7.5 g/dL (6.3-8.2) 12/11/18 21:30 3.4 g/dL (3.9-5) L 12/11/18 21:30 0.8 % 12/11/18 21:30 Triglycerides 123 mg/dL (2-149) 12/12/18 00:35 Cholesterol 88 mg/dL (50-199) 12/12/18 00:35 39 mg/dL (50-130) L 12/12/18 00:35 41 mg/dL (40-59) 12/12/18 00:35 2.14 % 12/12/18 00:35 Yellow (Yellow) 12/11/18 23:31 Clear (Clear) 12/11/18 23:31 6.0 (5.0-7.0) 12/11/18 23:31 Ur Specific [place] 1.008 (1.003-1.030) 12/11/18 23:31 <15 mg/dl mg/dL (Negative) 12/11/18 23:31 Neg mg/dL (Negative) 12/11/18 23:31 Neg mg/dL (Negative) 12/11/18 23:31 Neg (Negative) 12/11/18 23:31 Neg (Negative) 12/11/18 23:31 Neg (Negative) 12/11/18 23:31 < 2.0 mg/dL (<2.0) 12/11/18 23:31 Ur Leukocyte Esterase Neg (Negative) 12/11/18 23:31 2.0 /HPF (0.0-6.0) 12/11/18 23:31 1.0 /HPF (0.0-6.0) 12/11/18 23:31 Hyaline Casts 1 /LPF 12/11/18 23:31 Presumptive negative 12/11/18 23:31 Presumptive negative 12/11/18 23:31 Ur Barbiturates Screen Presumptive negative 12/11/18 23:31 Ur Phencyclidine Scrn Presumptive negative 12/11/18 23:31 Ur Amphetamines Screen Presumptive negative 12/11/18 23:31 U Benzodiazepines Scrn Presumptive negative 12/11/18 23:31 Presumptive negative 12/11/18 23:31 U Marijuana (THC) Screen Presumptive negative 12/11/18 23:31 Disclamer 12/11/18 23:31 Active Medications - Current Medications Current Medications: Generic Name Dose Route Start Last Admin Trade Name Freq PRN Reason Stop Dose Admin Acetaminophen 650 mg 12/12/18 00:38 Tylenol PO Q4H PRN Pain MILD(1-3)/Fever >100.5/STAPLES Albuterol/Ipratropium 1 ampul 12/12/18 14:00 Duoneb *Not For Prn Use* IH Q6HRT KAVITHA Famotidine 20 mg 12/12/18 10:00 12/12/18 10:49 Pepcid IV 20 mg DAILY KAVITHA Administration Hydrophilic Ointment 1 applic 12/11/18 21:59 Vaseline Lip Therapy TP Q2HR PRN Dry Lips Propofol 1,000 mg in 100 mls @ 2.1 mls/hr 12/11/18 21:10 12/12/18 10:28 Diprivan 10 Mg/Ml IV 0 mcg/kg/min TITR KAVITHA 0 mls/hr Titration Protocol 5 MCG/KG/MIN Norepinephrine 4 mg in 250 mls @ 18.75 mls/hr 12/11/18 21:25 12/12/18 06:21 Levophed Drip 4 Mg/Ns 250 Ml IV 0 mcg/min TITR KAVITHA 0 mls/hr Titration Protocol 5 MCG/MIN Amiodarone HCl 900 mg/ 500 mls @ 33.333 mls/hr 12/12/18 01:00 12/12/18 09:15 Dextrose IV 0.5 mg/min DIRECT KAVITHA 16.667 mls/hr Titration Protocol 1 MG/MIN Sodium Chloride 1,000 mls @ 125 mls/hr 12/12/18 01:00 12/12/18 05:23 Nacl 0.9% 1000 Ml IV 125 mls/hr DIRECT KAVITHA Administration Multi-Ingred Cream/Lotion/Oil/Oint 1 applic 12/11/18 21:26 Artificial Tears Ophth Oint OU Q4HR PRN Dry Eye(s) Ondansetron HCl 4 mg 12/12/18 00:38 Zofran IV Q8H PRN Nausea And Vomiting Sodium Chloride 10 ml 12/12/18 10:00 12/12/18 10:49 Sodium Chloride Flush Syringe 10 Ml IV 10 ml BID KAVITHA Administration Sodium Chloride 10 ml 12/12/18 00:38 Sodium Chloride Flush Syringe 10 Ml IV PRN PRN LINE FLUSH Nutrition/Malnutrition Assess - Dietary Evaluation Nutrition/Malnutrition Findings: Nutrition Notes Start: 12/12/18 10:59 Freq: Status: Active Protocol: Document 12/12/18 10:59 LP (Rec: 12/12/18 11:02 LP [id number]) Nutrition Notes Need for Assessment generated from: MD Order Initial or Follow up Assessment Current Diagnosis COPD,Hypertension Other Pertinent Diagnosis Cardiac Arrest, AMI Current Diet NPO Labs/Tests BUN 23 Cr 1.4 BG 189 Pertinent Medications Propofol Height 5 ft 6 in Weight 70 kg [place] Body Weight (kg) 59.09 BMI 24.9 Subjective/Other Information Consutl for evaluate nuttrition intake. Pt on vent. Burn Absent Trauma Absent #1 Nutrition Diagnosis Inadequate oral intake Etiology vent As Evidenced by Signs and Symptoms Pt unable to consume PO Is patient on ventilator? Yes Is Patient Ambulatory and/or Out of Bed No REE-([place]-St. Jeor-confined to bed) 1430.940 Calculation Used for Recommendations [place]-St Jeor Additional Notes Protein needs are 84-140g (1.2 -2g/kg) Fluid needs are 1ml/kcal Nutrition Intervention Change Diet Order: TF consult or extubation Goal #1 TF consult Anticipated Discharge Needs: Unable to determine at this time Follow-Up By: 12/14/18 Additional Comments Follow for TF consult
--- NOTE | 2018-12-12 15:22 | Consultation ---
PULMONARY AND CRITICAL CARE CONSULTATION NOTE CONSULTING PHYSICIAN: Zuri Bishop MD REASON FOR CONSULTATION: Acute respiratory failure, on mechanical ventilatory support, status post cardiac arrest. CHIEF COMPLAINT AND HISTORY OF PRESENT ILLNESS: The patient is an 78-year-old -[place] female with past medical history significant for diagnosis of coronary artery disease, status post 3-vessel CABG in 2007 and a pacemaker placed in 2016. They apparently were traveling through [place] from [place] and she was complaining of some chest discomfort. She apparently had been short of breath the day prior, was seen in the Emergency Department and some testing was done which was okay according to her daughter, they were unable to interrogate her device and she was ultimately discharged with the family. She was actually feeling better on the morning of the incident; however, while there were in the [facility] area, she did have a walk around the area and then started feeling short of breath. She said that the daughter states she had an episode where she seemed to be losing consciousness and then eventually she stopped breathing. No seizure type activity was noted. Medics were called. It is unclear if any CPR was done prior to the medics arriving. She was found in V-tach. She received shocks and she was started on amiodarone. There was a return of spontaneous circulation. She was brought into the ER. She did have a slight gag during the intubation, which I believe seems to have happened in the Emergency Room. We are asked to assist with management. When I stopped by to see her in the Critical Care Unit, she was resting peacefully in bed. She would open her eyes to stimuli, but really not to my commands. She had spontaneous movements to her lower extremities and her hands. I do not have any history of vomiting or overt aspiration. With regards to the patient's tobacco use/abuse history, it is unknown if she is not a current smoker according to the family in the room. Remote history is unknown. This really is as much of the history of presentation as I have. PAST MEDICAL HISTORY: 1. Coronary artery disease. 2. Hypertension. 3. Chronic obstructive lung disease. 4. I believe dysrhythmia, unclear what type. PAST SURGICAL HISTORY: She has had coronary artery bypass grafting in 2007 and she had the pacemaker/AICD placed, I believe in 2016. She has also had a thyroidectomy in the past. MEDICATIONS: Medications she was on at the time I stopped by to see were reviewed. Pertinent medications include the following: Tylenol 650 mg p.o. q. 4 hours p.r.n. mild pain, amiodarone drip was going at 1 mg per minute, Pepcid 20 mg IV daily, Levophed drip had been going at 5 mcg per minute, Zofran 4 mg IV q. 8 hours p.r.n. nausea and vomiting, propofol was going earlier at 15 mcg per kilogram per minute. She was also on Pepcid 20 mg IV daily. ALLERGIES: To PENICILLINS and THEOPHYLLINE. Nature of this allergy is unknown. DIET: Well-built lady. Family denies acute weight loss or gain in the preceding few weeks to months. FAMILY AND SOCIAL HISTORY: Apparently lives in the community. Alcohol, tobacco, illicit drug use or abuse history is unknown. Family history is otherwise unknown. REVIEW OF SYSTEMS: Unobtainable secondary to the patient's medical and mental condition. Since she has been here, no gross hematochezia or melena, no gross hematuria, no bloody tracheal secretions, no witnessed seizures. Review of systems is otherwise unobtainable or as in the body of history above. PHYSICAL EXAMINATION: VITAL SIGNS: At presentation, current temperature is 98.6 degrees Fahrenheit with a pulse of 74, respiratory rate of 19, blood pressure 110/60, O2 sats were 100% that was on the assist control mode of respiration, AC mode tidal volumes 450, rate of 18, PEEP of 6, and 25% FiO2. GENERAL: She is an elderly looking -[place] female, normocephalic, atraumatic, on the mechanical ventilator without significant patient ventilator dyssynchrony. HEAD, EYES, EARS, NOSE AND THROAT: She was anicteric. No conjunctival erythema. Oropharynx was moist. Endotracheal tube was taped at the lips around 20-21 cm. She had a left IJ central line in place with some bleeding at the stoma site. No gross jugular venous distention, no thyromegaly. Grossly, no palpable lymph nodes in the supraclavicular or submandibular lymph node chains. LUNGS: Auscultation of both lung johnson unremarkable. Lungs were essentially clear bilaterally, no wheezing. HEART: Heart sounds 1 and 2 were heard. They were regular in rate and rhythm at the time of my evaluation, she did have a systolic murmur and what sounded like a possible mechanical heart valve click. ABDOMEN: Again, abdomen is soft, full. Bowel sounds are positive, but not tender. No palpable hepatosplenomegaly. EXTREMITIES: Without overt digital clubbing or cyanosis. No pedal edema. Pedal pulses were palpable and strong bilaterally. NEUROLOGIC: Pupils were equal, round, about 4 mm, reactive to light. Extraocular muscle movements could not be adequately assessed. She definitely did have spontaneous movements to her extremities. Babinski sign was negative. She did move both her hands. SKIN: The skin was of normal turgor without overt cellulitis or rash. LABORATORY DATA: From my review are as follows: Admission white cell count 7600, hemoglobin 10.2, hematocrit 30.8, platelet count 147. No band forms reported. INR was 1.58. D-dimer was elevated at 3643. Arterial blood gas showed a pH of 7.44, pCO2 is pending, pO2 was 344 that was on 100% FiO2 this morning; pH of 7.49 with a pO2 of 220, on 50% FiO2. At presentation, serum sodium was 136, potassium 5.3, chloride 97, bicarbonate 20, BUN 18, creatinine 1.4, glucose 137. Albumin was 3.4, otherwise liver function tests were within normal limits. Troponin was normal at presentation; however, repeat blood gas today shows a troponin of 0.146. It is now trending back down. Urinalysis was bland and negative for nitrites and leukocyte esterase. Urine drug screen was presumptive negative. Tracheal culture no growth to date. Chest x-ray was seen. Initial chest x-ray showed a right mainstem intubation. Today, the ET tube is riding high above the clavicular heads, no gross pneumothorax. Left IJ line is in place with the tip of catheter in the distal SVC. An implanted cardiac device is in the left upper anterior chest wall and median sternotomy wires are in place. She also has cardiomegaly; however, no focal infiltrates. CT angio was also done. I have reviewed the CT angiogram. I have also reviewed the radiologist's interpretation. Very good contrast face timing. I do agree no gross filling defects consistent with significant pulmonary emboli. She has some dependent atelectasis. Long windows reveal that there was motion artifact. Mild ground glass opacifications and no overt pleural effusions that I can see. No pneumothorax, no gross bony fractures. ASSESSMENT: 1. Acute hypoxemic respiratory failure, on mechanical ventilatory support. 2. Status post cardiac arrest, possible ventricular tachycardia with return of spontaneous circulation. 3. History of cardiomyopathy, type unknown. 4. Coronary artery disease, status post coronary artery bypass graft. 5. History of chronic obstructive pulmonary disease. 6. Acute encephalopathy, possible anoxic element. 7. Hyperkalemia at presentation. 8. Acute kidney injury. 9. Elevated serum troponins. 10. Oropharyngeal dysphagia. PLAN: We will keep her on full mechanical ventilatory support in the short time. I will reduce the set rate to 12. Ventilator-associated pneumonia bundle has been instituted including aspiration precautions. Oxygen is being weaned to keep sats greater than or equal to over 90%. We will begin spontaneous breathing trials later this afternoon, but certainly daily sedation assessment trials and spontaneous breathing trial assessments. All sedation is on hold right now including her propofol. The exam appears to be nonfocal at this point. No acute indication for CT of the head in my opinion acutely. Definitely if there is any change in the mental status, we will go ahead and get one. Cardiology evaluation has been sought. We will follow their recommendations. A 2D echocardiogram has been done, await the results. We will follow her clinically off antibiotics at this time. For the history of the baseline COPD, I will put her on bronchodilators scheduled in the short time p.r.n. thereafter. I will also put her on Pulmicort. Feeding tube has been placed. Enteral nutrition has been ordered and we will advance to goal per the senior control systems engineer. She is appropriately on GI prophylaxis. She will be placed on DVT prophylaxis initially with SCDs. The ET tube will be advanced 2 cm and a chest x-ray will be repeated. Flu and pneumonia vaccination will be addressed per protocol. We will continue to follow her kidney function. Replace electrolytes as necessary. I will hold on overt rehydration until we know what her ejection fraction is. Nephrology evaluation will be at the behest of the attending physician. Thank you very much for the consult, Dr. Bishop. We will follow along and make further recommendations as picture progresses/becomes clearer. She is critically ill on life-sustaining interventions including mechanical ventilatory support, at high risk of deterioration including the risk of . I should mention that Levophed is being weaned to keep mean arterial pressures greater than or equal to about 65 mmHg. At this time, I spent about 35-40 minutes of critical care time without overlap and excluding any procedural time that may be necessary. JOB# [id number] BEENA/HIRAM MCCRACKEN
[2018-12-12] MEDS: DUONEB *Not for PRN Use IH SCH ×2 (15:30→19:42)
[2018-12-13] MEDS: DUONEB *Not for PRN Use IH SCH ×4 (01:57→19:58)
--- NOTE | 2018-12-13 02:57 | XRay Report ---
CHEST 1 VIEW INDICATION / CLINICAL INFORMATION: follow up respiratory failure. COMPARISON: 12/12/2018 FINDINGS: SUPPORT DEVICES: Stable, satisfactory device positioning. HEART / MEDIASTINUM: No significant abnormality. LUNGS / PLEURA: No significant pulmonary or pleural abnormality. No pneumothorax. ADDITIONAL FINDINGS: No significant additional findings. IMPRESSION: 1. No acute findings. Signer Name: Juan Velasco MD Signed: 12/13/2018 2:53 AM Workstation Name: [id number]
[2018-12-13 05:35] LABS: Basophils % (Auto) 0.3 % (0.0-1.8); Eosinophils # (Auto) 0.2 K/mm3 (0.0-0.4); Eosinophils % (Auto) 1.8 % (0.0-4.3); Hematocrit 25.2 % (30.3-42.9); Hemoglobin 8.2 gm/dl (10.1-14.3); Lymphocytes # (Auto) 2.7 K/mm3 (1.2-5.4); Lymphocytes % (Auto) 24.3 % (13.4-35.0); Mean Corpuscular HGB Conc 32 % (30-34); Mean Corpuscular Volume 89 fl (79-97); Monocytes # (Auto) 0.9 K/mm3 (0.0-0.8); Monocytes % (Auto) 8.3 % (0.0-7.3); Platelet Count 116 K/mm3 (140-440); Red Blood Count 2.84 M/mm3 (3.65-5.03); Red Cell Distribution Width 17.9 % (13.2-15.2)
[2018-12-13 05:53] LABS: Calcium 7.9 mg/dL (8.4-10.2)
--- NOTE | 2018-12-13 08:33 | Progress Note ---
Assessment and Plan Assessment and plan: Ventricular tachycardia/fibrillation. Continue intravenous amiodarone drip. She may require ischemic evaluation subsequently after adequate stabilization. Follow-up with cardiac/defibrillator interrogation. Cardiology following. Cardiogenic shock. Continue pressors as needed. Acute hypoxic respiratory failure s/p intubated. Continue mechanical ventilation and wean as tolerated. Patient currently sedated on Diprivan. Pulmonary following. Elevated troponin. Etiology likely secondary to above. Thrombocytopenia. Follow CBC. s/p cardiac arrest. Assessment neurological function off sedation. CAD. History of CABG. Per cardiology. COPD. Continue bronchodilators. Hypothyroidism. Continue Synthroid. KAYLEEN Monitor BMP The high probability of a clinically significant, sudden or life threatening deterioration of the [respiratory] system(s) required my full and direct attention, intervention and personal management. The aggregate critical care time was [35] minutes. This time is in addition to time spent performing reported procedures but includes the following: [x] Data Review and interpretation [x] Patient assessment and monitoring of vital signs [x] Documentation [x] Medication orders and management History Interval history: s/p cardiac arrest Still intubated Hospitalist Physical - Physical exam Narrative exam: Gen: Not in acute distress, lying in bed,intubated HEENT: Normocephalic, atraumatic Neck: supple, no JVD Heart: S1 and S2 reg, no murmurs, rubs or gallop Lungs: Clear, no crackles or wheeze Abd: soft, non tender, non distended, normal BS Neuro: Intubated, s - Constitutional Vitals: Temp Pulse Resp BP Pulse Ox 99.6 F 92 H 18 139/75 100 12/13/18 08:00 12/13/18 08:01 12/13/18 08:01 12/13/18 08:00 12/13/18 08:00 General appearance: Present: no acute distress, other (unresponsive, orally intubated on mechanical ventilation) Results - Labs CBC & Chem 7: 12/13/18 04:15 12/13/18 04:15 Labs: Laboratory Last Values WBC 11.0 K/mm3 (4.5-11.0) 12/13/18 04:15 RBC 2.84 M/mm3 (3.65-5.03) L 12/13/18 04:15 Hgb 8.2 gm/dl (10.1-14.3) L 12/13/18 04:15 Hct 25.2 % (30.3-42.9) L 12/13/18 04:15 MCV 89 fl (79-97) 12/13/18 04:15 MCH 29 pg (28-32) 12/13/18 04:15 MCHC 32 % (30-34) 12/13/18 04:15 RDW 17.9 % (13.2-15.2) H 12/13/18 04:15 Plt Count 116 K/mm3 (140-440) L 12/13/18 04:15 Lymph % (Auto) 24.3 % (13.4-35.0) 12/13/18 04:15 [place] % (Auto) 8.3 % (0.0-7.3) H 12/13/18 04:15 Eos % (Auto) 1.8 % (0.0-4.3) 12/13/18 04:15 Baso % (Auto) 0.3 % (0.0-1.8) 12/13/18 04:15 Lymph # 2.7 K/mm3 (1.2-5.4) 12/13/18 04:15 Dillon # 0.9 K/mm3 (0.0-0.8) H 12/13/18 04:15 Eos # 0.2 K/mm3 (0.0-0.4) 12/13/18 04:15 Baso # 0.0 K/mm3 (0.0-0.1) 12/13/18 04:15 Add Manual Diff Complete 12/11/18 21:30 Total Counted 100 12/11/18 21:30 Seg Neutrophils % 65.3 % (40.0-70.0) 12/13/18 04:15 Seg Neuts % (Manual) 35.0 % (40.0-70.0) L 12/11/18 21:30 0 % 12/11/18 21:30 51.0 % (13.4-35.0) H 12/11/18 21:30 Reactive Lymphs % (Man) 0 % 12/11/18 21:30 8.0 % (0.0-7.3) H 12/11/18 21:30 5.0 % (0.0-4.3) H 12/11/18 21:30 1.0 % (0.0-1.8) 12/11/18 21:30 0 % 12/11/18 21:30 0 % 12/11/18 21:30 0 % 12/11/18 21:30 0 % 12/11/18 21:30 Nucleated RBC % Not Reportable 12/11/18 21:30 Seg Neutrophils # 7.2 K/mm3 (1.8-7.7) 12/13/18 04:15 Seg Neutrophils # Man 2.7 K/mm3 (1.8-7.7) 12/11/18 21:30 Band Neutrophils # 0.0 K/mm3 12/11/18 21:30 3.9 K/mm3 (1.2-5.4) 12/11/18 21:30 Abs React Lymphs (Man) 0.0 K/mm3 12/11/18 21:30 0.6 K/mm3 (0.0-0.8) 12/11/18 21:30 0.4 K/mm3 (0.0-0.4) 12/11/18 21:30 0.1 K/mm3 (0.0-0.1) 12/11/18 21:30 0.0 K/mm3 12/11/18 21:30 0.0 K/mm3 12/11/18 21:30 0.0 K/mm3 12/11/18 21:30 Blast Cells # 0.0 K/mm3 12/11/18 21:30 WBC Morphology Not Reportable 12/11/18 21:30 Hypersegmented Neuts Not Reportable 12/11/18 21:30 Hyposegmented Neuts Not Reportable 12/11/18 21:30 Hypogranular Neuts Not Reportable 12/11/18 21:30 Not Reportable 12/11/18 21:30 Not Reportable 12/11/18 21:30 Not Reportable 12/11/18 21:30 Not Reportable 12/11/18 21:30 Not Reportable 12/11/18 21:30 Not Reportable 12/11/18 21:30 Consistent w auto 12/11/18 21:30 Not Reportable 12/11/18 21:30 Plt Clumps, EDTA Not Reportable 12/11/18 21:30 Few 12/11/18 21:30 Not Reportable 12/11/18 21:30 Not Reportable 12/11/18 21:30 Plt Morphology Comment Not Reportable 12/11/18 21:30 RBC Morphology Not Reportable 12/11/18 21:30 Dimorphic RBCs Not Reportable 12/11/18 21:30 Not Reportable 12/11/18 21:30 Not Reportable 12/11/18 21:30 Not Reportable 12/11/18 21:30 1+ 12/11/18 21:30 Not Reportable 12/11/18 21:30 Not Reportable 12/11/18 21:30 Not Reportable 12/11/18 21:30 Not Reportable 12/11/18 21:30 Not Reportable 12/11/18 21:30 Not Reportable 12/11/18 21:30 Not Reportable 12/11/18 21:30 Few 12/11/18 21:30 Not Reportable 12/11/18 21:30 Not Reportable 12/11/18 21:30 Not Reportable 12/11/18 21:30 Not Reportable 12/11/18 21:30 Not Reportable 12/11/18 21:30 Not Reportable 12/11/18 21:30 Not Reportable 12/11/18 21:30 Acanthocytes (Spur) Not Reportable 12/11/18 21:30 Rouleaux Not Reportable 12/11/18 21:30 Not Reportable 12/11/18 21:30 Not Reportable 12/11/18 21:30 Not Reportable 12/11/18 21:30 Not Reportable 12/11/18 21:30 Hem Pathologist Commnt No 12/11/18 21:30 PT 18.5 Sec. (12.2-14.9) H 12/11/18 21:30 INR 1.58 (0.87-1.13) H 12/11/18 21:30 APTT 31.5 Sec. (24.2-36.6) 12/11/18 21:30 3643.18 ng/mlDDU (0-234) H 12/11/18 21:30 POC ABG pH 7.407 (7.35-7.45) 12/12/18 17:37 POC ABG pCO2 32.4 (35-45) L 12/12/18 17:37 POC ABG pO2 98 (80-105) 12/12/18 17:37 POC ABG HCO3 20.4 (22-26 mml/L) 12/12/18 17:37 POC ABG Total CO2 21 (23-27mmol/L) 12/12/18 17:37 POC ABG O2 Sat 98 12/12/18 17:37 POC ABG Base Excess -4 ((-2) - (+3)mmol/L) 12/12/18 17:37 25 % 12/12/18 17:37 Sodium 140 mmol/L (137-145) 12/13/18 04:15 Potassium 4.0 mmol/L (3.6-5.0) 12/13/18 04:15 Chloride 108.3 mmol/L (98-107) H 12/13/18 04:15 Carbon Dioxide 20 mmol/L (22-30) L 12/13/18 04:15 16 mmol/L 12/13/18 04:15 BUN 21 mg/dL (7-17) H 12/13/18 04:15 1.3 mg/dL (0.7-1.2) H 12/13/18 04:15 Estimated GFR 48 ml/min 12/13/18 04:15 16 % 12/13/18 04:15 Glucose 109 mg/dL (65-100) H 12/13/18 04:15 Calcium 7.9 mg/dL (8.4-10.2) L 12/13/18 04:15 Magnesium 1.80 mg/dL (1.7-2.3) 12/12/18 06:45 0.30 mg/dL (0.1-1.2) 12/11/18 21:30 AST 35 units/L (5-40) 12/11/18 21:30 ALT 12 units/L (7-56) 12/11/18 21:30 85 units/L (35-129) 12/11/18 21:30 978 units/L (30-135) H 12/12/18 06:45 CK-MB (CK-2) 9.4 ng/mL (0.0-4.0) H 12/12/18 06:45 CK-MB (CK-2) Rel Index 0.9 (0-4) 12/12/18 06:45 0.131 ng/mL (0.00-0.029) H* 12/12/18 06:45 7.5 g/dL (6.3-8.2) 12/11/18 21:30 3.4 g/dL (3.9-5) L 12/11/18 21:30 0.8 % 12/11/18 21:30 Triglycerides 123 mg/dL (2-149) 12/12/18 00:35 Cholesterol 88 mg/dL (50-199) 12/12/18 00:35 39 mg/dL (50-130) L 12/12/18 00:35 41 mg/dL (40-59) 12/12/18 00:35 2.14 % 12/12/18 00:35 Yellow (Yellow) 12/11/18 23:31 Clear (Clear) 12/11/18 23:31 6.0 (5.0-7.0) 12/11/18 23:31 Ur Specific [place] 1.008 (1.003-1.030) 12/11/18 23:31 <15 mg/dl mg/dL (Negative) 12/11/18 23:31 Neg mg/dL (Negative) 12/11/18 23:31 Neg mg/dL (Negative) 12/11/18 23:31 Neg (Negative) 12/11/18 23:31 Neg (Negative) 12/11/18 23:31 Neg (Negative) 12/11/18 23:31 < 2.0 mg/dL (<2.0) 12/11/18 23:31 Ur Leukocyte Esterase Neg (Negative) 12/11/18 23:31 2.0 /HPF (0.0-6.0) 12/11/18 23:31 1.0 /HPF (0.0-6.0) 12/11/18 23:31 Hyaline Casts 1 /LPF 12/11/18 23:31 Presumptive negative 12/11/18 23:31 Presumptive negative 12/11/18 23:31 Ur Barbiturates Screen Presumptive negative 12/11/18 23:31 Ur Phencyclidine Scrn Presumptive negative 12/11/18 23:31 Ur Amphetamines Screen Presumptive negative 12/11/18 23:31 U Benzodiazepines Scrn Presumptive negative 12/11/18 23:31 Presumptive negative 12/11/18 23:31 U Marijuana (THC) Screen Presumptive negative 12/11/18 23:31 Disclamer 12/11/18 23:31 Active Medications - Current Medications Current Medications: Generic Name Dose Route Start Last Admin Trade Name Freq PRN Reason Stop Dose Admin Acetaminophen 650 mg 12/12/18 00:38 Tylenol PO Q4H PRN Pain MILD(1-3)/Fever >100.5/STAPLES Albuterol/Ipratropium 1 ampul 12/12/18 14:00 12/13/18 07:57 Duoneb *Not For Prn Use* IH 1 ampul Q6HRT KAVITHA Administration Famotidine 20 mg 12/12/18 10:00 12/12/18 10:49 Pepcid IV 20 mg DAILY KAVITHA Administration Hydrophilic Ointment 1 applic 12/11/18 21:59 Vaseline Lip Therapy TP Q2HR PRN Dry Lips Propofol 1,000 mg in 100 mls @ 2.1 mls/hr 12/11/18 21:10 12/12/18 19:21 Diprivan 10 Mg/Ml IV 0 mcg/kg/min TITR KAVITHA 0 mls/hr Titration Protocol 5 MCG/KG/MIN Norepinephrine 4 mg in 250 mls @ 18.75 mls/hr 12/11/18 21:25 12/12/18 06:21 Levophed Drip 4 Mg/Ns 250 Ml IV 0 mcg/min TITR KAVITHA 0 mls/hr Titration Protocol 5 MCG/MIN Amiodarone HCl 900 mg/ 500 mls @ 33.333 mls/hr 12/12/18 01:00 12/12/18 18:38 Dextrose IV 0.5 mg/min DIRECT KAVITHA 16.667 mls/hr Administration Protocol 1 MG/MIN Sodium Chloride 1,000 mls @ 125 mls/hr 12/12/18 01:00 12/12/18 21:20 Nacl 0.9% 1000 Ml IV 125 mls/hr DIRECT KAVITHA Administration Multi-Ingred Cream/Lotion/Oil/Oint 1 applic 12/11/18 21:26 Artificial Tears Ophth Oint OU Q4HR PRN Dry Eye(s) Ondansetron HCl 4 mg 12/12/18 00:38 Zofran IV Q8H PRN Nausea And Vomiting Sodium Chloride 10 ml 12/12/18 10:00 12/12/18 21:20 Sodium Chloride Flush Syringe 10 Ml IV 10 ml BID KAVITHA Administration Sodium Chloride 10 ml 12/12/18 00:38 Sodium Chloride Flush Syringe 10 Ml IV PRN PRN LINE FLUSH Nutrition/Malnutrition Assess - Dietary Evaluation Nutrition/Malnutrition Findings: Nutrition Notes Start: 12/12/18 10:59 Freq: Status: Active Protocol: Document 12/12/18 10:59 LP (Rec: 12/12/18 11:02 LP [id number]) Nutrition Notes Need for Assessment generated from: MD Order Initial or Follow up Assessment Current Diagnosis COPD,Hypertension Other Pertinent Diagnosis Cardiac Arrest, AMI Current Diet NPO Labs/Tests BUN 23 Cr 1.4 BG 189 Pertinent Medications Propofol Height 5 ft 6 in Weight 70 kg [place] Body Weight (kg) 59.09 BMI 24.9 Subjective/Other Information Consutl for evaluate nuttrition intake. Pt on vent. Burn Absent Trauma Absent #1 Nutrition Diagnosis Inadequate oral intake Etiology vent As Evidenced by Signs and Symptoms Pt unable to consume PO Is patient on ventilator? Yes Is Patient Ambulatory and/or Out of Bed No REE-([facility]-confined to bed) [phone] Calculation Used for Recommendations [facility] Additional Notes Protein needs are 84-140g (1.2 -2g/kg) Fluid needs are 1ml/kcal Nutrition Intervention Change Diet Order: TF consult or extubation Goal #1 TF consult Anticipated Discharge Needs: Unable to determine at this time Follow-Up By: 12/14/18 Additional Comments Follow for TF consult
--- NOTE | 2018-12-13 09:27 | Progress Note ---
Assessment and Plan Acute hypoxemic respiratory failure, on mechanical ventilatory support. Status post cardiac arrest, possible ventricular tachycardia with return of spontaneous circulation. History of cardiomyopathy, type unknown. Coronary artery disease, status post coronary artery bypass graft. chronic obstructive pulmonary disease. Acute encephalopathy, possible anoxic element. Hyperkalemia at presentation. Acute kidney injury. Elevated serum troponins. Oropharyngeal dysphagia - get ABG on SBT; tentatively extubate if acceptable - continue bronchodilators with pulmonary hygiene per RT - continue supplemental oxygen as needed to keep O2 sat's > 90% - VAP bundle addressed - 2D ECHO with EF of 15-20% - heart failure measures per cardiology (to begin Coreg also) - follow clinically off antibiotics (trend CRP & lactate prn) - continue enteral nutrition as tolerated - continue lung protective strategies - daily CXR and ABG in short term - continue accuchecks with glycemic control per SSI for target blood glucose <180mg/dL - Agitation management - Titrate sedation to RASS 0 to -1 - to transition to oral amiodarone - Prevention of delirium, maintenance of sleep-wake cycle - neurolology evaluation ongoing - VTE and Stress ulcer prophylaxis - continue other care per attending / other consultants ... re-evaluate in am & prn CONDITION: CRITICAL PROGNOSIS: GRAVE to GUARDED CODE STATUS: FULL CODE The high probability of a clinically significant, sudden or life-threatening deterioration of the [respiratory, cardiac and neurologic] system(s) required my full and direct attention, intervention and personal management. The aggregate critical care time was [32] minutes without overlap. Time includes spent on; [x] Data Review and interpretation [x] Patient assessment and monitoring of vital signs [x] Documentation [x] Medication orders and management Subjective Date of service: 12/13/18 Principal diagnosis: Ac hypoxemic resp failure; Cardiac arrest; KAYLEEN; Ac encephalopathy; NSTEMI Interval history: Patient is seen today for: Ac hypoxemic resp failure; S/P cardiac arrest; H/O CMOP; CAD; COPD; Acute encephalopathy, possible anoxic element; Acute kidney injury; NSTEMI; Oropharyngeal dysphagia. Seen and examined at bedside; 24hour events reviewed; nursing and respiratory care staff consulted; no adverse overnight events reported to me; resting peacefully in bed; denies acute chest pains or palpitations; tolerating PSV very well; No N/V/F/C; family in room. Objective Vital Signs - 12hr 12/12/18 12/12/18 12/12/18 21:30 21:40 21:50 Temperature Pulse Rate 83 81 81 Pulse Rate [ Bilateral Lower Lobe] Pulse Rate [ From Monitor] Respiratory 17 17 21 Rate Respiratory Rate [Bilateral Lower Lobe] Blood Pressure 134/74 134/74 134/74 O2 Sat by Pulse 99 98 100 Oximetry 12/12/18 12/12/18 12/12/18 22:00 22:10 22:20 Temperature Pulse Rate 82 83 83 Pulse Rate [ Bilateral Lower Lobe] Pulse Rate [ From Monitor] Respiratory 16 18 18 Rate Respiratory Rate [Bilateral Lower Lobe] Blood Pressure 135/74 134/74 134/74 O2 Sat by Pulse 99 100 100 Oximetry 12/12/18 12/12/18 12/12/18 22:30 22:40 22:50 Temperature Pulse Rate 82 82 83 Pulse Rate [ Bilateral Lower Lobe] Pulse Rate [ From Monitor] Respiratory 17 17 19 Rate Respiratory Rate [Bilateral Lower Lobe] Blood Pressure 134/74 134/74 134/74 O2 Sat by Pulse 100 100 100 Oximetry 12/12/18 12/12/18 12/12/18 23:00 23:10 23:15 Temperature 98.8 F Pulse Rate 84 84 Pulse Rate [ Bilateral Lower Lobe] Pulse Rate [ From Monitor] Respiratory 16 17 Rate Respiratory Rate [Bilateral Lower Lobe] Blood Pressure 139/76 135/74 O2 Sat by Pulse 99 99 Oximetry 12/12/18 12/12/18 12/12/18 23:20 23:30 23:40 Temperature Pulse Rate 83 82 81 Pulse Rate [ Bilateral Lower Lobe] Pulse Rate [ From Monitor] Respiratory 16 16 16 Rate Respiratory Rate [Bilateral Lower Lobe] Blood Pressure 135/74 135/74 135/74 O2 Sat by Pulse 98 99 99 Oximetry 12/12/18 12/13/18 12/13/18 23:50 00:00 00:10 Temperature Pulse Rate 80 80 81 Pulse Rate [ Bilateral Lower Lobe] Pulse Rate [ From Monitor] Respiratory 15 8 L 14 Rate Respiratory Rate [Bilateral Lower Lobe] Blood Pressure 135/74 127/69 139/76 O2 Sat by Pulse 99 100 98 Oximetry 12/13/18 12/13/18 12/13/18 00:12 00:20 00:30 Temperature Pulse Rate 80 80 81 Pulse Rate [ Bilateral Lower Lobe] Pulse Rate [ From Monitor] Respiratory 15 15 13 Rate Respiratory Rate [Bilateral Lower Lobe] Blood Pressure 139/76 139/76 139/76 O2 Sat by Pulse 98 98 96 Oximetry 12/13/18 12/13/18 12/13/18 00:40 00:50 01:00 Temperature Pulse Rate 81 79 83 Pulse Rate [ Bilateral Lower Lobe] Pulse Rate [ From Monitor] Respiratory 14 15 15 Rate Respiratory Rate [Bilateral Lower Lobe] Blood Pressure 139/76 139/76 127/69 O2 Sat by Pulse 98 99 97 Oximetry 12/13/18 12/13/18 12/13/18 01:10 01:20 01:30 Temperature Pulse Rate 80 80 79 Pulse Rate [ Bilateral Lower Lobe] Pulse Rate [ From Monitor] Respiratory 14 14 15 Rate Respiratory Rate [Bilateral Lower Lobe] Blood Pressure 127/69 127/69 127/69 O2 Sat by Pulse 100 100 100 Oximetry 12/13/18 12/13/18 12/13/18 01:40 01:50 02:00 Temperature Pulse Rate 84 83 84 Pulse Rate [ Bilateral Lower Lobe] Pulse Rate [ From Monitor] Respiratory 18 19 15 Rate Respiratory Rate [Bilateral Lower Lobe] Blood Pressure 127/69 127/69 125/66 O2 Sat by Pulse 100 100 98 Oximetry 12/13/18 12/13/18 12/13/18 02:10 02:15 02:20 Temperature Pulse Rate 83 81 Pulse Rate [ 89 Bilateral Lower Lobe] Pulse Rate [ From Monitor] Respiratory 13 13 Rate Respiratory 18 Rate [Bilateral Lower Lobe] Blood Pressure 125/66 125/66 O2 Sat by Pulse 100 100 Oximetry 12/13/18 12/13/18 12/13/18 02:30 02:40 02:50 Temperature Pulse Rate 79 79 79 Pulse Rate [ Bilateral Lower Lobe] Pulse Rate [ From Monitor] Respiratory 14 13 14 Rate Respiratory Rate [Bilateral Lower Lobe] Blood Pressure 125/66 125/66 125/66 O2 Sat by Pulse 98 99 98 Oximetry 12/13/18 12/13/18 12/13/18 03:00 03:10 03:20 Temperature Pulse Rate 84 82 79 Pulse Rate [ Bilateral Lower Lobe] Pulse Rate [ From Monitor] Respiratory 20 15 14 Rate Respiratory Rate [Bilateral Lower Lobe] Blood Pressure 135/67 135/67 135/67 O2 Sat by Pulse 100 98 95 Oximetry 12/13/18 12/13/18 12/13/18 03:30 03:33 03:40 Temperature 99.1 F Pulse Rate 78 76 Pulse Rate [ Bilateral Lower Lobe] Pulse Rate [ From Monitor] Respiratory 15 15 Rate Respiratory Rate [Bilateral Lower Lobe] Blood Pressure 135/67 135/67 O2 Sat by Pulse 97 96 Oximetry 12/13/18 12/13/18 12/13/18 03:45 03:50 04:00 Temperature Pulse Rate 78 77 77 Pulse Rate [ Bilateral Lower Lobe] Pulse Rate [ From Monitor] Respiratory 6 L 13 14 Rate Respiratory Rate [Bilateral Lower Lobe] Blood Pressure 135/67 140/75 O2 Sat by Pulse 99 97 100 Oximetry 12/13/18 12/13/18 12/13/18 04:10 04:20 04:30 Temperature Pulse Rate 77 76 75 Pulse Rate [ Bilateral Lower Lobe] Pulse Rate [ From Monitor] Respiratory 15 14 14 Rate Respiratory Rate [Bilateral Lower Lobe] Blood Pressure 140/75 140/75 140/75 O2 Sat by Pulse 97 100 99 Oximetry 12/13/18 12/13/18 12/13/18 04:40 04:50 04:57 Temperature Pulse Rate 76 80 80 Pulse Rate [ Bilateral Lower Lobe] Pulse Rate [ From Monitor] Respiratory 15 16 13 Rate Respiratory Rate [Bilateral Lower Lobe] Blood Pressure 140/75 140/75 O2 Sat by Pulse 97 98 99 Oximetry 12/13/18 12/13/18 12/13/18 05:00 05:10 05:20 Temperature Pulse Rate 81 80 78 Pulse Rate [ Bilateral Lower Lobe] Pulse Rate [ From Monitor] Respiratory 16 14 14 Rate Respiratory Rate [Bilateral Lower Lobe] Blood Pressure 136/74 136/74 136/74 O2 Sat by Pulse 98 98 98 Oximetry 12/13/18 12/13/18 12/13/18 05:30 05:40 05:50 Temperature Pulse Rate 77 76 75 Pulse Rate [ Bilateral Lower Lobe] Pulse Rate [ From Monitor] Respiratory 15 15 14 Rate Respiratory Rate [Bilateral Lower Lobe] Blood Pressure 136/74 136/74 136/74 O2 Sat by Pulse 100 99 99 Oximetry 12/13/18 12/13/18 12/13/18 06:00 06:10 06:20 Temperature Pulse Rate 75 76 77 Pulse Rate [ Bilateral Lower Lobe] Pulse Rate [ From Monitor] Respiratory 14 13 15 Rate Respiratory Rate [Bilateral Lower Lobe] Blood Pressure 133/69 133/69 133/69 O2 Sat by Pulse 98 99 100 Oximetry 12/13/18 12/13/1819 06:30 06:40 06:50 Temperature Pulse Rate 77 77 76 Pulse Rate [ Bilateral Lower Lobe] Pulse Rate [ From Monitor] Respiratory 14 14 15 Rate Respiratory Rate [Bilateral Lower Lobe] Blood Pressure 133/69 133/69 133/69 O2 Sat by Pulse 99 100 99 Oximetry 12/13/18 12/13/18 12/13/18 07:00 07:10 07:20 Temperature Pulse Rate 76 81 80 Pulse Rate [ Bilateral Lower Lobe] Pulse Rate [ From Monitor] Respiratory 15 16 15 Rate Respiratory Rate [Bilateral Lower Lobe] Blood Pressure 133/71 133/71 133/71 O2 Sat by Pulse 100 100 99 Oximetry 12/13/18 12/13/18 12/13/18 07:30 07:40 07:47 Temperature Pulse Rate 80 79 Pulse Rate [ 81 Bilateral Lower Lobe] Pulse Rate [ From Monitor] Respiratory 14 15 Rate Respiratory 18 Rate [Bilateral Lower Lobe] Blood Pressure 133/71 133/71 O2 Sat by Pulse 99 100 Oximetry 12/13/18 12/13/18 12/13/18 07:50 07:55 08:00 Temperature 99.6 F Pulse Rate 79 81 Pulse Rate [ Bilateral Lower Lobe] Pulse Rate [ 82 From Monitor] Respiratory 15 15 20 Rate Respiratory Rate [Bilateral Lower Lobe] Blood Pressure 133/71 139/75 O2 Sat by Pulse 100 96 99 Oximetry 12/13/18 12/13/18 12/13/18 08:01 08:10 08:20 Temperature Pulse Rate 81 80 Pulse Rate [ 92 H Bilateral Lower Lobe] Pulse Rate [ From Monitor] Respiratory 16 17 Rate Respiratory 18 Rate [Bilateral Lower Lobe] Blood Pressure 139/75 139/75 O2 Sat by Pulse 98 100 Oximetry 12/13/18 12/13/18 12/13/18 08:30 08:40 08:50 Temperature Pulse Rate 81 82 81 Pulse Rate [ Bilateral Lower Lobe] Pulse Rate [ From Monitor] Respiratory 18 18 18 Rate Respiratory Rate [Bilateral Lower Lobe] Blood Pressure 139/75 139/75 139/75 O2 Sat by Pulse 100 100 99 Oximetry 12/13/18 09:00 Temperature Pulse Rate 81 Pulse Rate [ Bilateral Lower Lobe] Pulse Rate [ From Monitor] Respiratory 16 Rate Respiratory Rate [Bilateral Lower Lobe] Blood Pressure 138/76 O2 Sat by Pulse 100 Oximetry Constitutional: no acute distress, other (elderly looking AAF, normocephalic and atraumatic with mildly increased resp effort at rest) Eyes: non-icteric ENT: oropharynx moist, other (ETT 24 cm VERONICA) Neck: supple, no lymphadenopathy, no JVD Effort: mildly labored Ascultation: Bilateral: clear, diminished breath sounds Percussion: Bilateral: not dull Cardiovascular: regular rate and rhythm, murmur noted (systyolic) Gastrointestinal: normoactive bowel sounds, soft, non-tender, non-distended Integumentary: normal Extremities: no cyanosis, no edema, pulses normal, no ischemia or petechiae Neurologic: normal mental status, non-focal exam (grossly), pupils equal and round, motor strength normal and Psychiatric: mood appropriate, affect normal CBC and BMP: 12/14/18 04:20 12/14/18 04:20 ABG, PT/INR, D-dimer: ABG POC ABG pH 7.407 (7.35-7.45) 12/12/18 17:37 POC ABG pCO2 32.4 (35-45) L 12/12/18 17:37 POC ABG pO2 98 (80-105) 12/12/18 17:37 POC ABG HCO3 20.4 (22-26 mml/L) 12/12/18 17:37 POC ABG Total CO2 21 (23-27mmol/L) 12/12/18 17:37 POC ABG O2 Sat 98 12/12/18 17:37 PT/INR, D-dimer PT 18.5 Sec. (12.2-14.9) H 12/11/18 21:30 INR 1.58 (0.87-1.13) H 12/11/18 21:30 3643.18 ng/mlDDU (0-234) H 12/11/18 21:30 Abnormal lab findings: Abnormal Labs 12/11/18 12/11/18 12/11/18 21:30 21:30 21:30 RBC 3.44 L Hgb Hct RDW 17.9 H Plt Count Mccone % (Auto) Mccone # Seg Neutrophils % Seg Neuts % (Manual) 35.0 L Lymphocytes % (Manual) 51.0 H Monocytes % (Manual) 8.0 H Eosinophils % (Manual) 5.0 H PT 18.5 H INR 1.58 H D-Dimer 3643.18 H POC ABG pH POC ABG pCO2 POC ABG pO2 Sodium 136 L Potassium 5.3 H Chloride 97.2 L Carbon Dioxide 20 L BUN 18 H Creatinine 1.4 H Glucose 137 H Calcium Total Creatine Kinase CK-MB (CK-2) Troponin T Albumin 3.4 L LDL Cholesterol Direct 12/11/18 12/12/18 12/12/18 22:35 00:35 02:30 RBC 3.16 L Hgb 9.2 L Hct 27.9 L RDW 17.7 H Plt Count 127 L Mccone % (Auto) Mccone # Seg Neutrophils % 75.7 H Seg Neuts % (Manual) Lymphocytes % (Manual) Monocytes % (Manual) Eosinophils % (Manual) PT INR D-Dimer POC ABG pH POC ABG pCO2 POC ABG pO2 344 H Sodium Potassium Chloride Carbon Dioxide BUN Creatinine Glucose Calcium Total Creatine Kinase CK-MB (CK-2) Troponin T 0.106 H* D Albumin LDL Cholesterol Direct 39 L 12/12/18 12/12/18 12/12/18 02:30 02:30 03:50 RBC Hgb Hct RDW Plt Count Mccone % (Auto) Mccone # Seg Neutrophils % Seg Neuts % (Manual) Lymphocytes % (Manual) Monocytes % (Manual) Eosinophils % (Manual) PT INR D-Dimer POC ABG pH 7.494 H POC ABG pCO2 POC ABG pO2 220 H Sodium Potassium Chloride Carbon Dioxide 18 L BUN 23 H Creatinine 1.4 H Glucose 189 H Calcium 7.5 L Total Creatine Kinase 431 H CK-MB (CK-2) 6.9 H Troponin T 0.146 H* D Albumin LDL Cholesterol Direct 12/12/18 12/12/18 12/13/18 06:45 17:37 04:15 RBC 2.84 L Hgb 8.2 L Hct 25.2 L RDW 17.9 H Plt Count 116 L Mccone % (Auto) 8.3 H Mccone # 0.9 H Seg Neutrophils % Seg Neuts % (Manual) Lymphocytes % (Manual) Monocytes % (Manual) Eosinophils % (Manual) PT INR D-Dimer POC ABG pH POC ABG pCO2 32.4 L POC ABG pO2 Sodium Potassium Chloride Carbon Dioxide BUN Creatinine Glucose Calcium Total Creatine Kinase 978 H CK-MB (CK-2) 9.4 H Troponin T 0.131 H* Albumin LDL Cholesterol Direct 12/13/18 04:15 RBC Hgb Hct RDW Plt Count Mccone % (Auto) Mccone # Seg Neutrophils % Seg Neuts % (Manual) Lymphocytes % (Manual) Monocytes % (Manual) Eosinophils % (Manual) PT INR D-Dimer POC ABG pH POC ABG pCO2 POC ABG pO2 Sodium Potassium Chloride 108.3 H Carbon Dioxide 20 L BUN 21 H Creatinine 1.3 H Glucose 109 H Calcium 7.9 L Total Creatine Kinase CK-MB (CK-2) Troponin T Albumin LDL Cholesterol Direct Chest x-ray: image reviewed (ETT in good position; ETT; no focal infiltrates) Allied health notes reviewed: nursing
--- NOTE | 2018-12-13 11:31 | Consultation ---
History of Present Illness - Reason for Consult Consult date: 12/13/18 sepsis/pneumonia Requesting physician: ANNA SILVA - History of Present Illness 78 y/o female with a history of COPD, coronary artery disease, hypertension, hypothyroidism, CMP s/p ICD admitted on 12/11/2018 due to 24 hour-history of generalized weakness and syncope. She came to [facility] for a basketball tournament. She was found weak and pale after some activity. She came to the ED, her ICD was not interrogated. She was discharged back to the [facility] where she had another episode of syncope. EMS was called, she was found to be in V. tach and shock 5 times, given amiodarone and was intubated here in the emergency room. History is limited as patient is currently intubated, family member at bedside does not know about details of medical history. In the ED, temp 98.7, HR 71, R18, BP 90/58. WBC 7.6. Creat 1.4. UA neg. Sputum culture 12/11/2018 normal resp brock. CXR negative. CT chest negative. Review of Systems: unable to obtain Past History Past Medical History: CAD, COPD, hypertension, hyperlipidemia, hypothyroidism Past Surgical History: CABG (in 2007), Other (ICD implantation in 2016; thyroidectomy) Social history: other (details not available). denies: smoking, alcohol abuse Family history: other (details not obtainable at this time) Medications and Allergies Allergies Allergy/AdvReac Type Severity Reaction Status Date / Time Penicillins Allergy Itching Verified 07/10/16 20:01 theophylline Allergy Itching Verified 07/10/16 20:01 Home Medications Medication Instructions Recorded Confirmed Last Taken Type Apixaban [Eliquis] 5 mg PO BID 12/11/18 12/11/18 12/11/18 History Carvedilol [Coreg] 3.125 mg PO BID 12/11/18 12/11/18 12/11/18 History Clopidogrel [Plavix] 75 mg PO QDAY 12/11/18 12/11/18 12/11/18 History Digoxin [Lanoxin] 0.125 mg PO DAILY 12/11/18 12/11/18 12/11/18 History Donepezil [Aricept] 5 mg PO QDAY 12/11/18 12/11/18 12/11/18 History Escitalopram [Lexapro] 20 mg PO DAILY 12/11/18 12/11/18 12/11/18 History Fluticasone [Flonase] 1 spray NS QDAY 12/11/18 12/11/18 12/11/18 History Fluticasone/Umeclidin/Vilanter 1 each IH PRN 12/11/18 12/11/18 12/11/18 History [Trelegy Ellipta 100-62.5-25] Furosemide [Lasix] 20 mg PO QDAY 12/11/18 12/11/18 12/11/18 History Lactulose 10 gm PO TID 12/11/18 12/11/18 12/11/18 History Levothyroxine [Synthroid] 50 mcg PO QAM 12/11/18 12/11/18 12/11/18 History Memantine [Namenda] 10 mg PO BID 12/11/18 12/11/18 12/11/18 History Midodrine [Proamatine] 2.5 mg PO BID 12/11/18 12/11/18 12/11/18 History Montelukast [Singulair] 10 mg PO QPM 12/11/18 12/11/18 12/11/18 History Nitroglycerin [Nitrostat] 0.4 mg SL Q5M PRN 12/11/18 12/11/18 12/11/18 History Nortriptyline HCl [Pamelor] 75 mg PO DAILY 12/11/18 12/11/18 12/11/18 History Pantoprazole [Protonix] 40 mg PO QDAY 12/11/18 12/11/18 12/11/18 History Potassium Chloride [K-Dur] 20 meq PO QDAY 12/11/18 12/11/18 12/11/18 History Rosuvastatin Calcium [Crestor] 20 mg PO DAILY 12/11/18 12/11/18 12/11/18 History busPIRone [Buspar] 10 mg PO BID 12/11/18 12/11/18 12/11/18 History Active Meds: Active Medications Acetaminophen (Tylenol) 650 mg PO Q4H PRN PRN Reason: Pain MILD(1-3)/Fever >100.5/STAPLES Albuterol/Ipratropium (Duoneb *Not For Prn Use*) 1 ampul IH Q6HRT [facility] Last Admin: 12/13/18 07:57 Dose: 1 ampul Documented by: Famotidine (Pepcid) 20 mg IV DAILY [facility] Last Admin: 12/12/18 10:49 Dose: 20 mg Documented by: Hydrophilic Ointment (Vaseline Lip Therapy) 1 applic TP Q2HR PRN PRN Reason: Dry Lips Propofol (Diprivan 10 Mg/Ml) 1,000 mg in 100 mls @ 2.1 mls/hr IV TITR KAVITHA; Protocol Last Titration: 12/12/18 19:21 Dose: 0 mcg/kg/min, 0 mls/hr Documented by: Amiodarone HCl 900 mg/ (Dextrose) 500 mls @ 33.333 mls/hr IV DIRECT KAVITHA; Protocol Last Admin: 12/12/18 18:38 Dose: 0.5 mg/min, 16.667 mls/hr Documented by: Sodium Chloride (Nacl 0.9% 1000 Ml) 1,000 mls @ 125 mls/hr IV DIRECT KAVITHA Last Admin: 12/12/18 21:20 Dose: 125 mls/hr Documented by: Multi-Ingred Cream/Lotion/Oil/Oint (Artificial Tears Ophth Oint) 1 applic OU Q4HR PRN PRN Reason: Dry Eye(s) Ondansetron HCl (Zofran) 4 mg IV Q8H PRN PRN Reason: Nausea And Vomiting Sodium Chloride (Sodium Chloride Flush Syringe 10 Ml) 10 ml IV BID [facility] Last Admin: 12/12/18 21:20 Dose: 10 ml Documented by: Sodium Chloride (Sodium Chloride Flush Syringe 10 Ml) 10 ml IV PRN PRN PRN Reason: LINE FLUSH Physical Examination - Physical Exam Narrative exam: General appearance: Alert in NAD intubated Eyes: anicteric sclerae, moist conjunctivae; no lid-lag; PERRLA HENT: Atraumatic; oropharynx+ETT Neck: Trachea midline; supple, no thyromegaly or lymphadenopathy Lungs: CTA maria a. ICD to left chest CV: RRR no murmur Abdomen: Soft, non-tender Extremities: no edema, cyanosis Skin: Normal temperature, turgor and texture; no rash, ulcers or subcutaneous nodules Psych: no agitated - Constitutional Vitals: Vital Signs Temp Pulse Resp BP Pulse Ox 99.6 F 79 16 133/69 99 12/13/18 08:00 12/13/18 11:00 12/13/18 11:00 12/13/18 11:00 12/13/18 11:00 Temperature -Last 24 Hours Temperature 99.6 F Temperature 99.6 F Temperature 99.1 F Temperature 98.8 F Temperature 98.0 F Temperature 97.6 F Temperature 99 F Temperature 98.6 F Results - Labs CBC & Chem 7: 12/13/18 04:15 12/13/18 04:15 Labs: Abnormal lab results 12/12/18 12/13/18 12/13/18 Range/Units 17:37 04:15 04:15 RBC 2.84 L (3.65-5.03) M/mm3 Hgb 8.2 L (10.1-14.3) gm/dl Hct 25.2 L (30.3-42.9) % RDW 17.9 H (13.2-15.2) % Plt Count 116 L (140-440) K/mm3 Woodson % (Auto) 8.3 H (0.0-7.3) % Woodson # 0.9 H (0.0-0.8) K/mm3 POC ABG pCO2 32.4 L (35-45) Chloride 108.3 H (98-107) mmol/L Carbon Dioxide 20 L (22-30) mmol/L BUN 21 H (7-17) mg/dL Creatinine 1.3 H (0.7-1.2) mg/dL Glucose 109 H (65-100) mg/dL Calcium 7.9 L (8.4-10.2) mg/dL Assessment and Plan Cultures: Sputum culture 12/11/2018 normal resp brock Assessment: 78 y/o female with a history of COPD, coronary artery disease, hypertension, hypothyroidism, CMP s/p ICD admitted on 12/11/2018 due to 24 hour-history of generalized weakness and syncope. She came to [facility] for a basketball tournament. She was found weak and pale after some activity. She came to the ED, her ICD was not interrogated. She was discharged back to the hotel where she had another episode of syncope. EMS was called, she was found to be in V. tach and shock 5 times, given amiodarone and was intubated here in the emergency room: 1) Cardiac arrest s/p CRP and post arrest hypotension: hypotension resolved. Found to be in V. tach and shock 5 times, given amiodarone IV, off pressors now. No evidence of sepsis, no fever, no leukocytosis. 2) Respiratory failure: ? pulmonary edema. CXR and CTA negative for consol idations. Sputum culture 12/11/2018 normal resp brock, likely colonizer. Recommendations: - keep holding off antibiotics - No evidence of sepsis, no fever, no leukocytosis. Will follow. Yaneli Ramirez MD Infectious Diseases [employer] [facility] M [phone] O [phone]
--- NOTE | 2018-12-13 11:59 | Progress Note ---
Assessment and Plan I will switch to oral amiodarone and initiate carvedilol. We will consider further cardiac evaluation after extubation. - Patient Problems (1) Cardiac arrest Current Visit: Yes Status: Acute (2) Ventricular fibrillation Current Visit: Yes Status: Acute (3) Ventricular tachycardia Current Visit: Yes Status: Acute (4) ICD (implantable cardioverter-defibrillator) discharge Current Visit: Yes Status: Acute (5) Acute respiratory failure Current Visit: Yes Status: Acute (6) Elevated troponin level Current Visit: Yes Status: Acute (7) Thrombocytopenia Current Visit: Yes Status: Acute (8) Moderate to severe pulmonary hypertension Current Visit: Yes Status: Acute (9) CAD (coronary artery disease) Current Visit: Yes Status: Chronic Qualifiers: Coronary Disease-Associated Artery/Lesion type: [place] artery (10) Ischemic cardiomyopathy Current Visit: Yes Status: Acute (11) Right ventricular dysfunction Current Visit: Yes Status: Acute (12) Hx of CABG Current Visit: Yes Status: Chronic (13) COPD (chronic obstructive pulmonary disease) Current Visit: Yes Status: Chronic (14) Hypothyroidism Current Visit: Yes Status: Chronic Subjective Date of service: 12/13/18 Principal diagnosis: Ac hypoxemic resp failure; Cardiac arrest; KAYLEEN; Ac encephalopathy; NSTEMI, Interval history: The patient is quite awake, alert and responsive this morning. I discussed with family members at the bedside about her presentation. One of her daughters will be coming to the hospital today and has the information regarding her senior firmware engineer in [place], [place]. She will contact the nurse upon arrival so that records can be requested from her senior firmware engineer. Objective Vital Signs Temp Pulse Pulse Pulse Resp Resp BP 12/13/18 11:00 79 16 133/69 12/13/18 10:50 80 16 138/76 12/13/18 10:40 79 16 138/76 12/13/18 10:30 81 16 138/76 12/13/18 10:20 80 18 138/76 12/13/18 10:10 79 19 121/59 12/13/18 10:00 77 20 121/59 12/13/18 09:50 78 26 H 138/76 12/13/18 09:40 79 22 138/76 12/13/18 09:30 76 20 138/76 12/13/18 09:20 76 20 138/76 12/13/18 09:10 78 18 138/76 12/13/18 09:00 81 16 138/76 12/13/18 08:50 81 18 139/75 12/13/18 08:40 82 18 139/75 12/13/18 08:30 81 18 139/75 12/13/18 08:20 80 17 139/75 12/13/18 08:10 81 16 139/75 12/13/18 08:01 92 H 18 12/13/18 08:00 99.6 F 81 20 139/75 12/13/18 07:55 82 15 12/13/18 07:50 79 15 133/71 12/13/18 07:47 81 18 12/13/18 07:40 79 15 133/71 12/13/18 07:30 80 14 133/71 12/13/18 07:20 80 15 133/71 12/13/18 07:10 81 16 133/71 12/13/18 07:00 76 15 133/71 12/13/18 06:50 76 15 133/69 12/13/18 06:40 77 14 133/69 12/13/18 06:30 77 14 133/69 12/13/18 06:20 77 15 133/69 12/13/18 06:10 76 13 133/69 12/13/18 06:00 75 14 133/69 12/13/18 05:50 75 14 136/74 12/13/18 05:40 76 15 136/74 12/13/18 05:30 77 15 136/74 12/13/18 05:20 78 14 136/74 12/13/18 05:10 80 14 136/74 12/13/18 05:00 81 16 136/74 12/13/18 04:57 80 13 12/13/18 04:50 80 16 140/75 12/13/18 04:40 76 15 140/75 12/13/18 04:30 75 14 140/75 12/13/18 04:20 76 14 140/75 12/13/18 04:10 77 15 140/75 12/13/18 04:00 77 14 140/75 12/13/18 03:50 77 13 135/67 12/13/18 03:45 78 6 L 12/13/18 03:40 76 15 135/67 12/13/18 03:33 99.1 F 12/13/18 03:30 78 15 135/67 12/13/18 03:20 79 14 135/67 12/13/18 03:10 82 15 135/67 12/13/18 03:00 84 20 135/67 12/13/18 02:50 79 14 125/66 12/13/18 02:40 79 13 125/66 12/13/18 02:30 79 14 125/66 12/13/18 02:20 81 13 125/66 12/13/18 02:15 89 18 12/13/18 02:10 83 13 125/66 12/13/18 02:00 84 15 125/66 12/13/18 01:50 83 19 127/69 12/13/18 01:40 84 18 127/69 12/13/18 01:30 79 15 127/69 12/13/18 01:20 80 14 127/69 12/13/18 01:10 80 14 127/69 12/13/18 01:00 83 15 127/69 12/13/18 00:50 79 15 139/76 12/13/18 00:40 81 14 139/76 12/13/18 00:30 81 13 139/76 12/13/18 00:20 80 15 139/76 12/13/18 00:12 80 15 139/76 12/13/18 00:10 81 14 139/76 12/13/18 00:00 80 8 L 127/69 12/12/18 23:50 80 15 135/74 12/12/18 23:40 81 16 135/74 12/12/18 23:30 82 16 135/74 12/12/18 23:20 83 16 135/74 12/12/18 23:15 98.8 F 12/12/18 23:10 84 17 135/74 12/12/18 23:00 84 16 139/76 12/12/18 22:50 83 19 134/74 12/12/18 22:40 82 17 134/74 12/12/18 22:30 82 17 134/74 12/12/18 22:20 83 18 134/74 12/12/18 22:10 83 18 134/74 12/12/18 22:00 82 16 135/74 12/12/18 21:50 81 21 134/74 12/12/18 21:40 81 17 134/74 12/12/18 21:30 83 17 134/74 12/12/18 21:20 83 17 134/74 12/12/18 21:10 81 18 134/74 12/12/18 21:00 82 19 134/74 12/12/18 20:50 82 19 135/78 12/12/18 20:40 79 17 135/78 12/12/18 20:30 79 16 135/78 12/12/18 20:20 80 16 135/78 12/12/18 20:10 81 18 135/78 12/12/18 20:05 85 16 12/12/18 20:00 98.0 F 82 24 135/78 12/12/18 19:50 81 17 131/72 12/12/18 19:43 78 17 131/72 12/12/18 19:41 97.6 F 12/12/18 19:40 79 17 131/72 12/12/18 19:30 79 17 131/72 12/12/18 19:22 78 17 12/12/18 19:20 79 18 131/72 12/12/18 19:10 78 18 131/72 12/12/18 19:00 78 17 131/72 12/12/18 18:50 78 18 126/70 12/12/18 18:40 80 19 126/70 12/12/18 18:30 80 15 126/70 12/12/18 18:20 80 17 126/70 12/12/18 18:10 81 12 126/70 12/12/18 18:00 78 16 126/70 12/12/18 17:50 80 29 H 125/67 12/12/18 17:40 78 17 125/67 12/12/18 17:30 77 16 125/67 12/12/18 17:24 99 F 12/12/18 17:20 77 18 125/67 12/12/18 17:10 77 17 125/67 12/12/18 17:00 77 17 125/67 12/12/18 16:50 77 18 129/71 12/12/18 16:40 77 17 129/71 12/12/18 16:30 77 24 129/71 12/12/18 16:20 77 20 129/71 12/12/18 16:10 77 17 129/71 12/12/18 16:00 78 77 18 129/71 12/12/18 15:50 78 18 123/69 12/12/18 15:44 82 14 12/12/18 15:40 76 12 123/69 12/12/18 15:30 76 77 15 14 123/69 12/12/18 15:20 77 13 127/68 12/12/18 15:10 76 14 127/68 12/12/18 15:00 76 14 127/68 12/12/18 14:50 75 13 123/69 12/12/18 14:40 75 13 123/69 12/12/18 14:30 76 13 123/69 12/12/18 14:20 77 22 123/69 12/12/18 14:10 76 12 123/69 12/12/18 14:00 76 12 123/69 12/12/18 13:50 75 12 125/66 12/12/18 13:40 73 12 125/66 12/12/18 13:30 76 18 125/66 12/12/18 13:24 98.6 F 12/12/18 13:21 78 12/12/18 13:20 74 20 125/66 12/12/18 13:10 71 18 125/66 12/12/18 13:09 74 12/12/18 13:00 71 73 18 125/66 12/12/18 12:50 71 19 127/64 12/12/18 12:40 71 21 127/64 12/12/18 12:30 75 18 127/64 12/12/18 12:20 70 18 127/64 12/12/18 12:10 71 18 127/64 12/12/18 12:00 72 17 127/64 Last Vital Signs Temp 99.6 F 12/13/18 08:00 Pulse 79 12/13/18 11:00 Resp 16 12/13/18 11:00 BP 133/69 12/13/18 11:00 Pulse Ox 99 12/13/18 11:00 - Physical Examination General: No Apparent Distress HEENT: Positive: EOMI, Normocephaly, Mucus Membranes Moist Neck: Positive: neck supple, trachea midline Cardiac: Positive: Reg Rate and Rhythm, S1/S2 Lungs: Positive: clear to auscultation Neuro: Positive: Grossly Intact Abdomen: Positive: Soft, Active Bowel Sounds. Negative: Tender Skin: Positive: Clear. Negative: Rash Musculoskeletal: Normal Range of Motion Extremities: Present: normal. Absent: edema - Labs and Meds CBC 12/13/18 Range/Units 04:15 WBC 11.0 (4.5-11.0) K/mm3 RBC 2.84 L (3.65-5.03) M/mm3 Hgb 8.2 L (10.1-14.3) gm/dl Hct 25.2 L (30.3-42.9) % Plt Count 116 L (140-440) K/mm3 Lymph # 2.7 (1.2-5.4) K/mm3 [place] # 0.9 H (0.0-0.8) K/mm3 Eos # 0.2 (0.0-0.4) K/mm3 Baso # 0.0 (0.0-0.1) K/mm3 Comprehensive Metabolic Panel 12/13/18 Range/Units 04:15 Sodium 140 (137-145) mmol/L Potassium 4.0 (3.6-5.0) mmol/L Chloride 108.3 H (98-107) mmol/L Carbon Dioxide 20 L (22-30) mmol/L BUN 21 H (7-17) mg/dL Creatinine 1.3 H (0.7-1.2) mg/dL Glucose 109 H (65-100) mg/dL Calcium 7.9 L (8.4-10.2) mg/dL - Imaging and Cardiology Echo: image reviewed - Telemetry EKG Rhythm: Sinus Rhythm - EKG Sinus rhythms and dysrhythmias: sinus rhythm AV and intraventricular conduction: right bundle branch block, left anterior fascicular
[2018-12-13] MEDS: COREG PO SCH ×2 (16:38→23:00)
[2018-12-13] MEDS: CORDARONE PO SCH ×2 (16:39→20:21)
[2018-12-13] MEDS: LASIX PO SCH (16:39)
[2018-12-13] MEDS: PEPCID IV SCH (16:40)
[2018-12-13] MEDS: SODIUM CHLORIDE FLUSH SYRINGE 10 ML IV SCH ×2 (16:42→23:02)
--- NOTE | 2018-12-14 02:34 | XRay Report ---
CHEST 1 VIEW INDICATION / CLINICAL INFORMATION: follow up respiratory failure. COMPARISON: 12/13/2018 FINDINGS: SUPPORT DEVICES: None. HEART / MEDIASTINUM: No significant abnormality. LUNGS / PLEURA: No significant pulmonary or pleural abnormality. No pneumothorax. ADDITIONAL FINDINGS: No significant additional findings. IMPRESSION: 1. No acute findings. Signer Name: Juan Velasco MD Signed: 12/14/2018 2:30 AM Workstation Name: [id number]
[2018-12-14] MEDS: DUONEB *Not for PRN Use IH SCH ×4 (02:49→20:18)
[2018-12-14 05:31] LABS: Hematocrit 26.2 % (30.3-42.9); Hemoglobin 8.5 gm/dl (10.1-14.3); Mean Corpuscular HGB Conc 33 % (30-34); Mean Corpuscular Volume 90 fl (79-97); Platelet Count 113 K/mm3 (140-440); Red Blood Count 2.92 M/mm3 (3.65-5.03); Red Cell Distribution Width 17.9 % (13.2-15.2)
[2018-12-14 05:51] LABS: Calcium 8.5 mg/dL (8.4-10.2)
--- NOTE | 2018-12-14 08:22 | Progress Note ---
Assessment and Plan Assessment and plan: Ventricular tachycardia/fibrillation. Continue intravenous amiodarone drip. She may require ischemic evaluation subsequently after adequate stabilization. Cardiology following. Cardiogenic shock, resolved, off pressors. Acute hypoxic respiratory failure was intubated, extubated yesterday 12/13. Pulmonary following. Thrombocytopenia. Follow CBC. s/p cardiac arrest. Assessment neurological function off sedation. CAD. History of CABG. Per cardiology. COPD. Continue bronchodilators. Hypothyroidism. Continue Synthroid. KAYLEEN Monitor BMP Improved, will transfer to Tele The high probability of a clinically significant, sudden or life threatening deterioration of the [respiratory] system(s) required my full and direct attention, intervention and personal management. The aggregate critical care time was [32] minutes. This time is in addition to time spent performing reported procedures but includes the following: [x] Data Review and interpretation [x] Patient assessment and monitoring of vital signs [x] Documentation [x] Medication orders and management History Interval history: s/p cardiac arrest Extubated yesterday no chest pain Hospitalist Physical - Physical exam Narrative exam: Gen: Not in acute distress, lying in bed, HEENT: Normocephalic, atraumatic Neck: supple, no JVD Heart: S1 and S2 reg, no murmurs, rubs or gallop Lungs: Clear, no crackles or wheeze Abd: soft, non tender, non distended, normal BS Ext:no edema Neuro: Awake,alert,oriented,moves all ext - Constitutional Vitals: Temp Pulse Resp BP Pulse Ox 98.0 F 75 23 154/70 74 L 12/14/18 04:00 12/14/18 07:53 12/14/18 07:53 12/14/18 06:00 12/14/18 06:00 General appearance: Present: no acute distress, other (unresponsive, orally intubated on mechanical ventilation) Results - Labs CBC & Chem 7: 12/14/18 04:20 12/14/18 04:20 Labs: Laboratory Last Values WBC 12.4 K/mm3 (4.5-11.0) H 12/14/18 04:20 RBC 2.92 M/mm3 (3.65-5.03) L 12/14/18 04:20 Hgb 8.5 gm/dl (10.1-14.3) L 12/14/18 04:20 Hct 26.2 % (30.3-42.9) L 12/14/18 04:20 MCV 90 fl (79-97) 12/14/18 04:20 MCH 29 pg (28-32) 12/14/18 04:20 MCHC 33 % (30-34) 12/14/18 04:20 RDW 17.9 % (13.2-15.2) H 12/14/18 04:20 Plt Count 113 K/mm3 (140-440) L 12/14/18 04:20 Lymph % (Auto) 24.3 % (13.4-35.0) 12/13/18 04:15 [place] % (Auto) 8.3 % (0.0-7.3) H 12/13/18 04:15 Eos % (Auto) 1.8 % (0.0-4.3) 12/13/18 04:15 Baso % (Auto) 0.3 % (0.0-1.8) 12/13/18 04:15 Lymph # 2.7 K/mm3 (1.2-5.4) 12/13/18 04:15 [place] # 0.9 K/mm3 (0.0-0.8) H 12/13/18 04:15 Eos # 0.2 K/mm3 (0.0-0.4) 12/13/18 04:15 Baso # 0.0 K/mm3 (0.0-0.1) 12/13/18 04:15 Add Manual Diff Complete 12/11/18 21:30 Total Counted 100 12/11/18 21:30 Seg Neutrophils % 65.3 % (40.0-70.0) 12/13/18 04:15 Seg Neuts % (Manual) 35.0 % (40.0-70.0) L 12/11/18 21:30 0 % 12/11/18 21:30 51.0 % (13.4-35.0) H 12/11/18 21:30 Reactive Lymphs % (Man) 0 % 12/11/18 21:30 8.0 % (0.0-7.3) H 12/11/18 21:30 5.0 % (0.0-4.3) H 12/11/18 21:30 1.0 % (0.0-1.8) 12/11/18 21:30 0 % 12/11/18 21:30 0 % 12/11/18 21:30 0 % 12/11/18 21:30 0 % 12/11/18 21:30 Nucleated RBC % Not Reportable 12/11/18 21:30 Seg Neutrophils # 7.2 K/mm3 (1.8-7.7) 12/13/18 04:15 Seg Neutrophils # Man 2.7 K/mm3 (1.8-7.7) 12/11/18 21:30 Band Neutrophils # 0.0 K/mm3 12/11/18 21:30 3.9 K/mm3 (1.2-5.4) 12/11/18 21:30 Abs React Lymphs (Man) 0.0 K/mm3 12/11/18 21:30 0.6 K/mm3 (0.0-0.8) 12/11/18 21:30 0.4 K/mm3 (0.0-0.4) 12/11/18 21:30 0.1 K/mm3 (0.0-0.1) 12/11/18 21:30 0.0 K/mm3 12/11/18 21:30 0.0 K/mm3 12/11/18 21:30 0.0 K/mm3 12/11/18 21:30 Blast Cells # 0.0 K/mm3 12/11/18 21:30 WBC Morphology Not Reportable 12/11/18 21:30 Hypersegmented Neuts Not Reportable 12/11/18 21:30 Hyposegmented Neuts Not Reportable 12/11/18 21:30 Hypogranular Neuts Not Reportable 12/11/18 21:30 Not Reportable 12/11/18 21:30 Not Reportable 12/11/18 21:30 Not Reportable 12/11/18 21:30 Not Reportable 12/11/18 21:30 Not Reportable 12/11/18 21:30 Not Reportable 12/11/18 21:30 Consistent w auto 12/11/18 21:30 Not Reportable 12/11/18 21:30 Plt Clumps, EDTA Not Reportable 12/11/18 21:30 Few 12/11/18 21:30 Not Reportable 12/11/18 21:30 Not Reportable 12/11/18 21:30 Plt Morphology Comment Not Reportable 12/11/18 21:30 RBC Morphology Not Reportable 12/11/18 21:30 Dimorphic RBCs Not Reportable 12/11/18 21:30 Not Reportable 12/11/18 21:30 Not Reportable 12/11/18 21:30 Not Reportable 12/11/18 21:30 1+ 12/11/18 21:30 Not Reportable 12/11/18 21:30 Not Reportable 12/11/18 21:30 Not Reportable 12/11/18 21:30 Not Reportable 12/11/18 21:30 Not Reportable 12/11/18 21:30 Not Reportable 12/11/18 21:30 Not Reportable 12/11/18 21:30 Few 12/11/18 21:30 Not Reportable 12/11/18 21:30 Not Reportable 12/11/18 21:30 Not Reportable 12/11/18 21:30 Not Reportable 12/11/18 21:30 Not Reportable 12/11/18 21:30 Not Reportable 12/11/18 21:30 Not Reportable 12/11/18 21:30 Acanthocytes (Spur) Not Reportable 12/11/18 21:30 Rouleaux Not Reportable 12/11/18 21:30 Not Reportable 12/11/18 21:30 Not Reportable 12/11/18 21:30 Not Reportable 12/11/18 21:30 Not Reportable 12/11/18 21:30 Hem Pathologist Commnt No 12/11/18 21:30 PT 18.5 Sec. (12.2-14.9) H 12/11/18 21:30 INR 1.58 (0.87-1.13) H 12/11/18 21:30 APTT 31.5 Sec. (24.2-36.6) 12/11/18 21:30 3643.18 ng/mlDDU (0-234) H 12/11/18 21:30 POC ABG pH 7.379 (7.35-7.45) 12/13/18 10:54 POC ABG pCO2 35.5 (35-45) 12/13/18 10:54 POC ABG pO2 85 (80-105) 12/13/18 10:54 POC ABG HCO3 21.0 (22-26 mml/L) 12/13/18 10:54 POC ABG Total CO2 22 (23-27mmol/L) 12/13/18 10:54 POC ABG O2 Sat 96 12/13/18 10:54 POC ABG Base Excess -4 ((-2) - (+3)mmol/L) 12/13/18 10:54 25 % 12/13/18 10:54 Sodium 138 mmol/L (137-145) 12/14/18 04:20 Potassium 4.1 mmol/L (3.6-5.0) 12/14/18 04:20 Chloride 103.1 mmol/L (98-107) 12/14/18 04:20 Carbon Dioxide 22 mmol/L (22-30) 12/14/18 04:20 17 mmol/L 12/14/18 04:20 BUN 15 mg/dL (7-17) 12/14/18 04:20 1.1 mg/dL (0.7-1.2) 12/14/18 04:20 Estimated GFR 58 ml/min 12/14/18 04:20 14 % 12/14/18 04:20 Glucose 95 mg/dL (65-100) 12/14/18 04:20 Calcium 8.5 mg/dL (8.4-10.2) 12/14/18 04:20 Magnesium 1.80 mg/dL (1.7-2.3) 12/12/18 06:45 0.30 mg/dL (0.1-1.2) 12/11/18 21:30 AST 35 units/L (5-40) 12/11/18 21:30 ALT 12 units/L (7-56) 12/11/18 21:30 85 units/L (35-129) 12/11/18 21:30 978 units/L (30-135) H 12/12/18 06:45 CK-MB (CK-2) 9.4 ng/mL (0.0-4.0) H 12/12/18 06:45 CK-MB (CK-2) Rel Index 0.9 (0-4) 12/12/18 06:45 0.131 ng/mL (0.00-0.029) H* 12/12/18 06:45 7.5 g/dL (6.3-8.2) 12/11/18 21:30 3.4 g/dL (3.9-5) L 12/11/18 21:30 0.8 % 12/11/18 21:30 Triglycerides 123 mg/dL (2-149) 12/12/18 00:35 Cholesterol 88 mg/dL (50-199) 12/12/18 00:35 39 mg/dL (50-130) L 12/12/18 00:35 41 mg/dL (40-59) 12/12/18 00:35 2.14 % 12/12/18 00:35 Yellow (Yellow) 12/11/18 23:31 Clear (Clear) 12/11/18 23:31 6.0 (5.0-7.0) 12/11/18 23:31 Ur Specific [place] 1.008 (1.003-1.030) 12/11/18 23:31 <15 mg/dl mg/dL (Negative) 12/11/18 23:31 Neg mg/dL (Negative) 12/11/18 23:31 Neg mg/dL (Negative) 12/11/18 23:31 Neg (Negative) 12/11/18 23:31 Neg (Negative) 12/11/18 23:31 Neg (Negative) 12/11/18 23:31 < 2.0 mg/dL (<2.0) 12/11/18 23:31 Ur Leukocyte Esterase Neg (Negative) 12/11/18 23:31 2.0 /HPF (0.0-6.0) 12/11/18 23:31 1.0 /HPF (0.0-6.0) 12/11/18 23:31 Hyaline Casts 1 /LPF 12/11/18 23:31 Presumptive negative 12/11/18 23:31 Presumptive negative 12/11/18 23:31 Ur Barbiturates Screen Presumptive negative 12/11/18 23:31 Ur Phencyclidine Scrn Presumptive negative 12/11/18 23:31 Ur Amphetamines Screen Presumptive negative 12/11/18 23:31 U Benzodiazepines Scrn Presumptive negative 12/11/18 23:31 Presumptive negative 12/11/18 23:31 U Marijuana (THC) Screen Presumptive negative 12/11/18 23:31 Disclamer 12/11/18 23:31 Active Medications - Current Medications Current Medications: Generic Name Dose Route Start Last Admin Trade Name Freq PRN Reason Stop Dose Admin Acetaminophen 650 mg 12/12/18 00:38 Tylenol PO Q4H PRN Pain MILD(1-3)/Fever >100.5/STAPLES Albuterol/Ipratropium 1 ampul 12/12/18 14:00 12/14/18 07:47 Duoneb *Not For Prn Use* IH 1 ampul Q6HRT KAVITHA Administration Amiodarone HCl 400 mg 12/13/18 14:00 12/13/18 20:21 Cordarone PO 400 mg TID KAVITHA Administration Carvedilol 3.125 mg 12/13/18 13:00 12/13/18 23:00 Coreg PO 3.125 mg BID KAVITHA Administration Famotidine 20 mg 12/12/18 10:00 12/13/18 16:40 Pepcid IV 20 mg DAILY KAVITHA Administration Furosemide 20 mg 12/13/18 13:00 12/13/18 16:39 Lasix PO 20 mg QDAY KAVITHA Administration Hydrophilic Ointment 1 applic 12/11/18 21:59 Vaseline Lip Therapy TP Q2HR PRN Dry Lips Propofol 1,000 mg in 100 mls @ 2.1 mls/hr 12/11/18 21:10 12/12/18 19:21 Diprivan 10 Mg/Ml IV 0 mcg/kg/min TITR KAVITHA 0 mls/hr Titration Protocol 5 MCG/KG/MIN Multi-Ingred Cream/Lotion/Oil/Oint 1 applic 12/11/18 21:26 Artificial Tears Ophth Oint OU Q4HR PRN Dry Eye(s) Ondansetron HCl 4 mg 12/12/18 00:38 Zofran IV Q8H PRN Nausea And Vomiting Sodium Chloride 10 ml 12/12/18 10:00 12/13/18 23:02 Sodium Chloride Flush Syringe 10 Ml IV 10 ml BID KAVITHA Administration Sodium Chloride 10 ml 12/12/18 00:38 Sodium Chloride Flush Syringe 10 Ml IV PRN PRN LINE FLUSH Nutrition/Malnutrition Assess - Dietary Evaluation Nutrition/Malnutrition Findings: Nutrition Notes Start: 12/12/18 10:59 Freq: Status: Active Protocol: Document 12/12/18 10:59 LP (Rec: 12/12/18 11:02 LP [id number]) Nutrition Notes Need for Assessment generated from: MD Order Initial or Follow up Assessment Current Diagnosis COPD,Hypertension Other Pertinent Diagnosis Cardiac Arrest, AMI Current Diet NPO Labs/Tests BUN 23 Cr 1.4 BG 189 Pertinent Medications Propofol Height 5 ft 6 in Weight 70 kg [place] Body Weight (kg) 59.09 BMI 24.9 Subjective/Other Information Consutl for evaluate nuttrition intake. Pt on vent. Burn Absent Trauma Absent #1 Nutrition Diagnosis Inadequate oral intake Etiology vent As Evidenced by Signs and Symptoms Pt unable to consume PO Is patient on ventilator? Yes Is Patient Ambulatory and/or Out of Bed No REE-(Ironside-St. Jeor-confined to bed) 1430.940 Calculation Used for Recommendations Ironside-St Jeor Additional Notes Protein needs are 84-140g (1.2 -2g/kg) Fluid needs are 1ml/kcal Nutrition Intervention Change Diet Order: TF consult or extubation Goal #1 TF consult Anticipated Discharge Needs: Unable to determine at this time Follow-Up By: 12/14/18 Additional Comments Follow for TF consult
[2018-12-14] MEDS ORDERED: COREG PO SCH (09:39)
[2018-12-14] MEDS: SODIUM CHLORIDE FLUSH SYRINGE 10 ML IV SCH ×2 (10:00→21:40)
--- NOTE | 2018-12-14 10:39 | Progress Note ---
Assessment and Plan Cultures: Sputum culture 12/11/2018 normal resp brock Assessment: 78 y/o female with a history of COPD, coronary artery disease, hypertension, hypothyroidism, CMP s/p ICD admitted on 12/11/2018 due to 24 hour-history of generalized weakness and syncope. She came to [facility] for a basketball tournament. She was found weak and pale after some activity. She came to the ED, her ICD was not interrogated. She was discharged back to the hot where she had another episode of syncope. EMS was called, she was found to be in V. tach and shock 5 times, given amiodarone and was intubated here in the emergency room: 1) Cardiac arrest s/p CRP and post arrest hypotension: hypotension resolved. Found to be in V. tach and shock 5 times, given amiodarone IV, off pressors now. No evidence of sepsis, no fever, no leukocytosis. 2) Respiratory failure: ? pulmonary edema. CXR and CTA negative for consolidations. Sputum culture 12/11/2018 normal resp brock, likely colonizer. 3) Confusion / acute encephalopathy: ?underlying mild cognitive decline. Recommendations: - continue off abx - WBC is likely reactive. Also, initial WBC showed high lymphocytes and some eosinophils, will repeat CBC with differential tomorrow Will follow. London Mitchell MD, FACP [facility] ([facility] C: [phone] O: [phone] F: [phone] Subjective Date of service: 12/14/18 Principal diagnosis: Ac hypoxemic resp failure; Cardiac arrest; KAYLEEN; Ac encephalopathy; NSTEMI, Interval history: No fever. No complaints. No distress. Answers questions but confused. Objective - Exam Narrative Exam: Physical Exam: Constitutional: Alert, cooperative. No acute distress Head, Ears, Nose: Normocephalic, atraumatic. External ears, nose normal Eyes: Conjunctivae/corneas clear. No icterus. No ptosis. Neck: Supple, no meningeal signs Cardiovascular: S1, S2 normal. AICD site non tender Respiratory: Good air entry, clear to auscultation bilaterally GI: Soft, non-tender; bowel sounds normal. No peritoneal signs Musculoskeletal: No pedal edema, no cyanosis. Skin: No rash or abscess Hem/Lymphatic: No palpable cervical or supraclavicular nodes. No lymphangitis Psych: Mood ok. Affect normal Neurological: Awake, alert, but not oriented to time or place. - Constitutional Vitals: Vital Signs Temp Pulse Resp BP Pulse Ox 98.7 F 76 21 122/59 98 12/14/18 08:00 12/14/18 09:00 12/14/18 09:00 12/14/18 09:00 12/14/18 09:00 Temperature -Last 24 Hours Temperature 98.7 F Temperature 98.0 F Temperature 98.8 F Temperature 99.1 F Temperature 98.9 F Temperature 99.0 F - Labs CBC & Chem 7: 12/14/18 04:20 12/14/18 04:20 Labs: Abnormal lab results 12/14/18 Range/Units 04:20 WBC 12.4 H (4.5-11.0) K/mm3 RBC 2.92 L (3.65-5.03) M/mm3 Hgb 8.5 L (10.1-14.3) gm/dl Hct 26.2 L (30.3-42.9) % RDW 17.9 H (13.2-15.2) % Plt Count 113 L (140-440) K/mm3 - Imaging and cardiology Chest x-ray: report reviewed, image reviewed (does not reveal any pneumonia)
[2018-12-14] MEDS: ZESTRIL PO SCH (10:59)
[2018-12-14] MEDS: PEPCID IV SCH (11:00)
[2018-12-14] MEDS: LASIX PO SCH (11:00)
[2018-12-14] MEDS: COREG PO SCH ×2 (11:02→21:39)
[2018-12-14] MEDS: CORDARONE PO SCH (11:17)
[2018-12-14] MEDS: MORPHINE IV PRN (12:11)
--- NOTE | 2018-12-14 12:30 | Progress Note ---
Assessment and Plan Acute hypoxemic respiratory failure, on mechanical ventilatory support. Status post cardiac arrest, possible ventricular tachycardia with return of spontaneous circulation. History of cardiomyopathy, type unknown. Coronary artery disease, status post coronary artery bypass graft. chronic obstructive pulmonary disease. Acute encephalopathy, possible anoxic element. Hyperkalemia at presentation. Acute kidney injury. Elevated serum troponins. Oropharyngeal dysphagia - continue BIPAP qhs - ST evaluation ongoing - continue aspiration precautions - continue bronchodilators with pulmonary hygiene per RT - continue supplemental oxygen as needed to keep O2 sat's > 90% - 2D ECHO with EF of 15-20% - heart failure measures per cardiology (to begin Coreg also) - follow clinically off antibiotics (trend CRP & lactate prn) - continue enteral nutrition as tolerated - continue lung protective strategies - prn CXR and ABG in short term - continue accuchecks with glycemic control per SSI for target blood glucose <180mg/dL - Agitation management - to transition to oral amiodarone - Prevention of delirium, maintenance of sleep-wake cycle - neurolology evaluation ongoing - VTE and Stress ulcer prophylaxis - continue other care per attending / other consultants ... re-evaluate in am & prn ... case discussed at length during team rounds and care plan formulated CONDITION: CRITICAL PROGNOSIS: GRAVE to GUARDED CODE STATUS: FULL CODE I have spent ( >35 ) minutes with the patient w/ >50% of the time spent counse ling and/or coordinating care for this patient. Counseling topics and/or how time was spent coordinating patient's care is outlined in the impression and plan above. Subjective Date of service: 12/14/18 Principal diagnosis: Ac hypoxemic resp failure; Cardiac arrest; KAYLEEN; Ac encephalopathy; NSTEMI Interval history: Patient is seen today for: Ac hypoxemic resp failure; S/P cardiac arrest; H/O CMOP; CAD; COPD; Acute encephalopathy, possible anoxic element; Acute kidney injury; NSTEMI; Oropharyngeal dysphagia. Seen and examined at bedside; 24hour events reviewed; nursing and respiratory care staff consulted; no adverse overnight events reported to me; resting peacefully in bed; doing well so far s/p extubation; tolerated BIPAP overnight; NO N/V/F/C Objective Vital Signs - 12hr 12/14/18 12/14/18 12/14/18 01:00 02:00 02:49 Temperature Pulse Rate 78 77 Pulse Rate [ 74 Anterior Bilateral Throughout] Respiratory 30 H 14 Rate Respiratory 22 Rate [Anterior Bilateral Throughout] Blood Pressure 130/62 116/72 O2 Sat by Pulse 99 79 L Oximetry 12/14/18 12/14/18 12/14/18 03:00 04:00 05:00 Temperature 98.0 F Pulse Rate 72 74 77 Pulse Rate [ Anterior Bilateral Throughout] Respiratory 22 15 17 Rate Respiratory Rate [Anterior Bilateral Throughout] Blood Pressure 132/63 132/63 138/61 O2 Sat by Pulse 92 100 96 Oximetry 12/14/18 12/14/18 12/14/18 06:00 07:01 07:40 Temperature Pulse Rate 77 76 Pulse Rate [ 73 Anterior Bilateral Throughout] Respiratory 22 20 Rate Respiratory 22 Rate [Anterior Bilateral Throughout] Blood Pressure 154/70 117/58 O2 Sat by Pulse 74 L 91 Oximetry 12/14/18 12/14/18 12/14/18 07:53 08:00 09:00 Temperature 98.7 F Pulse Rate 78 76 Pulse Rate [ 75 Anterior Bilateral Throughout] Respiratory 23 21 Rate Respiratory 23 Rate [Anterior Bilateral Throughout] Blood Pressure 127/59 122/59 O2 Sat by Pulse 91 98 Oximetry 12/14/18 12/14/18 12/14/18 10:00 10:59 11:00 Temperature Pulse Rate 76 79 76 Pulse Rate [ Anterior Bilateral Throughout] Respiratory 28 H 21 Rate Respiratory Rate [Anterior Bilateral Throughout] Blood Pressure 139/68 139/68 139/68 O2 Sat by Pulse 99 98 Oximetry 12/14/18 12/14/18 11:02 12:00 Temperature 98.6 F Pulse Rate 76 Pulse Rate [ Anterior Bilateral Throughout] Respiratory Rate Respiratory Rate [Anterior Bilateral Throughout] Blood Pressure 116/67 O2 Sat by Pulse Oximetry Constitutional: no acute distress, other (elderly looking AAF, normocephalic and atraumatic with mildly increased resp effort at rest) Eyes: non-icteric ENT: oropharynx moist, other (ETT 24 cm VERONICA) Neck: supple, no lymphadenopathy, no JVD Effort: mildly labored Ascultation: Bilateral: clear, diminished breath sounds Percussion: Bilateral: not dull Cardiovascular: regular rate and rhythm, murmur noted (systyolic) Gastrointestinal: normoactive bowel sounds, soft, non-tender, non-distended Integumentary: normal Extremities: no cyanosis, no edema, pulses normal, no ischemia or petechiae Neurologic: normal mental status, non-focal exam (grossly), pupils equal and round, motor strength normal and Psychiatric: mood appropriate, affect normal CBC and BMP: 12/15/18 04:13 12/14/18 04:20 ABG, PT/INR, D-dimer: ABG POC ABG pH 7.379 (7.35-7.45) 12/13/18 10:54 POC ABG pCO2 35.5 (35-45) 12/13/18 10:54 POC ABG pO2 85 (80-105) 12/13/18 10:54 POC ABG HCO3 21.0 (22-26 mml/L) 12/13/18 10:54 POC ABG Total CO2 22 (23-27mmol/L) 12/13/18 10:54 POC ABG O2 Sat 96 12/13/18 10:54 PT/INR, D-dimer PT 18.5 Sec. (12.2-14.9) H 12/11/18 21:30 INR 1.58 (0.87-1.13) H 12/11/18 21:30 3643.18 ng/mlDDU (0-234) H 12/11/18 21:30 Abnormal lab findings: Abnormal Labs 12/11/18 12/11/18 12/11/18 21:30 21:30 21:30 WBC RBC 3.44 L Hgb Hct RDW 17.9 H Plt Count [place] % (Auto) [place] # Seg Neutrophils % Seg Neuts % (Manual) 35.0 L Lymphocytes % (Manual) 51.0 H Monocytes % (Manual) 8.0 H Eosinophils % (Manual) 5.0 H PT 18.5 H INR 1.58 H D-Dimer 3643.18 H POC ABG pH POC ABG pCO2 POC ABG pO2 Sodium 136 L Potassium 5.3 H Chloride 97.2 L Carbon Dioxide 20 L BUN 18 H Creatinine 1.4 H Glucose 137 H Calcium Total Creatine Kinase CK-MB (CK-2) Troponin T Albumin 3.4 L LDL Cholesterol Direct 12/11/18 12/12/18 12/12/18 22:35 00:35 02:30 WBC RBC 3.16 L Hgb 9.2 L Hct 27.9 L RDW 17.7 H Plt Count 127 L [place] % (Auto) [place] # Seg Neutrophils % 75.7 H Seg Neuts % (Manual) Lymphocytes % (Manual) Monocytes % (Manual) Eosinophils % (Manual) PT INR D-Dimer POC ABG pH POC ABG pCO2 POC ABG pO2 344 H Sodium Potassium Chloride Carbon Dioxide BUN Creatinine Glucose Calcium Total Creatine Kinase CK-MB (CK-2) Troponin T 0.106 H* D Albumin LDL Cholesterol Direct 39 L 12/12/18 12/12/18 12/12/18 02:30 02:30 03:50 WBC RBC Hgb Hct RDW Plt Count [place] % (Auto) [place] # Seg Neutrophils % Seg Neuts % (Manual) Lymphocytes % (Manual) Monocytes % (Manual) Eosinophils % (Manual) PT INR D-Dimer POC ABG pH 7.494 H POC ABG pCO2 POC ABG pO2 220 H Sodium Potassium Chloride Carbon Dioxide 18 L BUN 23 H Creatinine 1.4 H Glucose 189 H Calcium 7.5 L Total Creatine Kinase 431 H CK-MB (CK-2) 6.9 H Troponin T 0.146 H* D Albumin LDL Cholesterol Direct 12/12/18 12/12/18 12/13/18 06:45 17:37 04:15 WBC RBC 2.84 L Hgb 8.2 L Hct 25.2 L RDW 17.9 H Plt Count 116 L [place] % (Auto) 8.3 H [place] # 0.9 H Seg Neutrophils % Seg Neuts % (Manual) Lymphocytes % (Manual) Monocytes % (Manual) Eosinophils % (Manual) PT INR D-Dimer POC ABG pH POC ABG pCO2 32.4 L POC ABG pO2 Sodium Potassium Chloride Carbon Dioxide BUN Creatinine Glucose Calcium Total Creatine Kinase 978 H CK-MB (CK-2) 9.4 H Troponin T 0.131 H* Albumin LDL Cholesterol Direct 12/13/18 12/14/18 04:15 04:20 WBC 12.4 H RBC 2.92 L Hgb 8.5 L Hct 26.2 L RDW 17.9 H Plt Count 113 L [place] % (Auto) [place] # Seg Neutrophils % Seg Neuts % (Manual) Lymphocytes % (Manual) Monocytes % (Manual) Eosinophils % (Manual) PT INR D-Dimer POC ABG pH POC ABG pCO2 POC ABG pO2 Sodium Potassium Chloride 108.3 H Carbon Dioxide 20 L BUN 21 H Creatinine 1.3 H Glucose 109 H Calcium 7.9 L Total Creatine Kinase CK-MB (CK-2) Troponin T Albumin LDL Cholesterol Direct Chest x-ray: image reviewed Allied health notes reviewed: nursing
--- NOTE | 2018-12-14 13:22 | Progress Note ---
Assessment and Plan DC Amiodarone and increase Coreg. Will discuss with her EP/foley artist. She may require DFT testing in order to assess functional integrity of her ICD. ?This may have to be perormed upon return home. Obtain CTA/VQ scan due to significant pulmonary HTN. - Patient Problems (1) Cardiac arrest Current Visit: Yes Status: Acute (2) Ventricular fibrillation Current Visit: Yes Status: Acute (3) Ventricular tachycardia Current Visit: Yes Status: Acute (4) ICD (implantable cardioverter-defibrillator) discharge Current Visit: Yes Status: Acute (5) Acute respiratory failure Current Visit: Yes Status: Acute (6) Elevated troponin level Current Visit: Yes Status: Acute (7) Thrombocytopenia Current Visit: Yes Status: Acute (8) Moderate to severe pulmonary hypertension Current Visit: Yes Status: Acute (9) CAD (coronary artery disease) Current Visit: Yes Status: Chronic Qualifiers: Coronary Disease-Associated Artery/Lesion type: [place] artery (10) Ischemic cardiomyopathy Current Visit: Yes Status: Acute (11) Right ventricular dysfunction Current Visit: Yes Status: Acute (12) Hx of CABG Current Visit: Yes Status: Chronic (13) COPD (chronic obstructive pulmonary disease) Current Visit: Yes Status: Chronic (14) Hypothyroidism Current Visit: Yes Status: Chronic Subjective Date of service: 12/14/18 Principal diagnosis: Ac hypoxemic resp failure; Cardiac arrest; KAYLEEN; Ac encephalopathy; NSTEMI Interval history: Awake. No complaint. In SR. Objective Vital Signs Temp Pulse Pulse Pulse Pulse Resp Resp 12/14/18 12:00 98.6 F 12/14/18 11:02 76 12/14/18 11:00 76 21 12/14/18 10:59 79 12/14/18 10:00 76 28 H 12/14/18 09:00 76 21 12/14/18 08:00 98.7 F 78 23 12/14/18 07:53 75 23 12/14/18 07:40 73 22 12/14/18 07:01 76 20 12/14/18 06:00 77 22 12/14/18 05:00 77 17 12/14/18 04:00 98.0 F 74 15 12/14/18 03:00 72 22 12/14/18 02:49 74 22 12/14/18 02:00 77 14 12/14/18 01:00 78 30 H 12/14/18 00:00 98.8 F 76 22 12/13/18 23:00 86 30 H 12/13/18 22:00 85 21 12/13/18 21:00 87 35 H 12/13/18 20:06 79 26 H 12/13/18 20:00 99.1 F 82 29 H 12/13/18 19:58 82 12/13/18 19:00 81 27 H 12/13/18 16:38 86 12/13/18 16:10 90 32 H 12/13/18 16:00 91 H 86 27 H 12/13/18 15:55 84 12/13/18 15:50 88 27 H 12/13/18 15:45 87 12/13/18 15:40 86 26 H 12/13/18 15:38 98.9 F 12/13/18 15:30 87 20 12/13/18 15:20 86 28 H 12/13/18 15:10 86 18 12/13/18 15:00 83 14 12/13/18 14:50 84 24 12/13/18 14:40 87 30 H 12/13/18 14:30 86 17 12/13/18 14:20 83 24 12/13/18 14:10 85 21 12/13/18 14:00 87 20 12/13/18 13:53 85 12/13/18 13:50 82 15 12/13/18 13:40 86 86 10 L 12/13/18 13:30 83 16 12/13/18 13:20 82 27 H Last Vital Signs Temp 98.6 F 12/14/18 12:00 Pulse 76 12/14/18 11:02 Resp 21 12/14/18 11:00 BP 116/67 12/14/18 11:02 Pulse Ox 98 12/14/18 11:00 - Physical Examination General: No Apparent Distress HEENT: Positive: EOMI, Normocephaly, Mucus Membranes Moist Neck: Positive: neck supple, trachea midline Cardiac: Positive: Reg Rate and Rhythm Lungs: Positive: clear to auscultation Neuro: Positive: Grossly Intact Abdomen: Positive: Soft, Active Bowel Sounds. Negative: Tender Skin: Positive: Clear. Negative: Rash Musculoskeletal: Normal Range of Motion Extremities: Present: normal. Absent: edema - Labs and Meds CBC 12/14/18 Range/Units 04:20 WBC 12.4 H (4.5-11.0) K/mm3 RBC 2.92 L (3.65-5.03) M/mm3 Hgb 8.5 L (10.1-14.3) gm/dl Hct 26.2 L (30.3-42.9) % Plt Count 113 L (140-440) K/mm3 Comprehensive Metabolic Panel 12/14/18 Range/Units 04:20 Sodium 138 (137-145) mmol/L Potassium 4.1 (3.6-5.0) mmol/L Chloride 103.1 (98-107) mmol/L Carbon Dioxide 22 (22-30) mmol/L BUN 15 (7-17) mg/dL Creatinine 1.1 (0.7-1.2) mg/dL Glucose 95 (65-100) mg/dL Calcium 8.5 (8.4-10.2) mg/dL - Imaging and Cardiology EKG: image reviewed Echo: image reviewed - Telemetry EKG Rhythm: Sinus Rhythm - EKG Sinus rhythms and dysrhythmias: sinus rhythm AV and intraventricular conduction: right bundle branch block, left anterior fascicular - Allied health notes Allied health notes reviewed: nursing
[2018-12-15] MEDS: DUONEB *Not for PRN Use IH SCH ×4 (01:34→19:21)
[2018-12-15 04:58] LABS: Basophils % (Auto) 0.4 % (0.0-1.8); Eosinophils # (Auto) 0.6 K/mm3 (0.0-0.4); Eosinophils % (Auto) 6.6 % (0.0-4.3); Hemoglobin 8.7 gm/dl (10.1-14.3); Lymphocytes # (Auto) 2.7 K/mm3 (1.2-5.4); Lymphocytes % (Auto) 30.2 % (13.4-35.0); Mean Corpuscular HGB Conc 34 % (30-34); Mean Corpuscular Volume 89 fl (79-97); Monocytes # (Auto) 0.7 K/mm3 (0.0-0.8); Monocytes % (Auto) 7.4 % (0.0-7.3); Platelet Count 119 K/mm3 (140-440); Red Blood Count 2.92 M/mm3 (3.65-5.03); Red Cell Distribution Width 17.7 % (13.2-15.2)
--- NOTE | 2018-12-15 08:43 | Progress Note ---
Assessment and Plan Acute hypoxemic respiratory failure, s/p mechanical ventilatory support, extubated Status post cardiac arrest, possible ventricular tachycardia with return of spontaneous circulation. History of cardiomyopathy Coronary artery disease, status post coronary artery bypass graft. Chronic obstructive pulmonary disease. Acute encephalopathy Hyperkalemia at presentation. Acute kidney injury. Elevated serum troponins. Oropharyngeal dysphagia Subjective Date of service: 12/15/18 Principal diagnosis: Ac hypoxemic resp failure; Cardiac arrest; KAYLEEN; Ac en cephalopathy; NSTEMI Interval history: Patient is seen today for: Ac hypoxemic resp failure; S/P cardiac arrest; H/O CMOP; CAD; COPD; Acute encephalopathy, possible anoxic element; Acute kidney injury; NSTEMI; Oropharyngeal dysphagia. Seen and examined at bedside; 24hour events reviewed; nursing and respiratory care staff consulted; no adverse overnight events reported to me; resting peacefully in bed, has some abdominal breathing, daughter is at the bedside, she states her mother just got some medication but apparently did not sleep much overnight; vitals, labs, medications, chart reviewed Objective Vital Signs - 12hr 12/14/18 12/15/18 12/15/18 23:31 00:31 01:37 Temperature 97.8 F Pulse Rate 74 78 Pulse Rate [ 115 H Anterior Bilateral Throughout] Respiratory 18 Rate Respiratory 22 Rate [Anterior Bilateral Throughout] Blood Pressure 128/62 O2 Sat by Pulse 100 Oximetry 12/15/18 12/15/18 12/15/18 04:22 07:58 08:13 Temperature 97.7 F Pulse Rate 78 Pulse Rate [ 90 80 Anterior Bilateral Throughout] Respiratory 18 Rate Respiratory 18 18 Rate [Anterior Bilateral Throughout] Blood Pressure 120/57 O2 Sat by Pulse 94 98 Oximetry Constitutional: no acute distress, other (elderly looking AAF, normocephalic and atraumatic with mildly increased resp effort at rest) Eyes: non-icteric ENT: oropharynx moist, other (ETT 24 cm VERONICA) Neck: supple, no lymphadenopathy, no JVD Effort: mildly labored Ascultation: Bilateral: clear, diminished breath sounds Percussion: Bilateral: not dull Cardiovascular: regular rate and rhythm, murmur noted (systyolic) Gastrointestinal: normoactive bowel sounds, soft, non-tender, non-distended Integumentary: normal Extremities: no cyanosis, no edema, pulses normal, no ischemia or petechiae Neurologic: normal mental status, non-focal exam (grossly), pupils equal and round, motor strength normal and Psychiatric: mood appropriate, affect normal CBC and BMP: 12/15/18 04:13 12/14/18 04:20 ABG, PT/INR, D-dimer: ABG POC ABG pH 7.379 (7.35-7.45) 12/13/18 10:54 POC ABG pCO2 35.5 (35-45) 12/13/18 10:54 POC ABG pO2 85 (80-105) 12/13/18 10:54 POC ABG HCO3 21.0 (22-26 mml/L) 12/13/18 10:54 POC ABG Total CO2 22 (23-27mmol/L) 12/13/18 10:54 POC ABG O2 Sat 96 12/13/18 10:54 PT/INR, D-dimer PT 18.5 Sec. (12.2-14.9) H 12/11/18 21:30 INR 1.58 (0.87-1.13) H 12/11/18 21:30 3643.18 ng/mlDDU (0-234) H 12/11/18 21:30 Abnormal lab findings: Abnormal Labs 12/11/18 12/11/18 12/11/18 21:30 21:30 21:30 WBC RBC 3.44 L Hgb Hct RDW 17.9 H Plt Count [place] % (Auto) Eos % (Auto) [place] # Eos # Seg Neutrophils % Seg Neuts % (Manual) 35.0 L Lymphocytes % (Manual) 51.0 H Monocytes % (Manual) 8.0 H Eosinophils % (Manual) 5.0 H PT 18.5 H INR 1.58 H D-Dimer 3643.18 H POC ABG pH POC ABG pCO2 POC ABG pO2 Sodium 136 L Potassium 5.3 H Chloride 97.2 L Carbon Dioxide 20 L BUN 18 H Creatinine 1.4 H Glucose 137 H Calcium Total Creatine Kinase CK-MB (CK-2) Troponin T Albumin 3.4 L LDL Cholesterol Direct 12/11/18 12/12/18 12/12/18 22:35 00:35 02:30 WBC RBC 3.16 L Hgb 9.2 L Hct 27.9 L RDW 17.7 H Plt Count 127 L [place] % (Auto) Eos % (Auto) [place] # Eos # Seg Neutrophils % 75.7 H Seg Neuts % (Manual) Lymphocytes % (Manual) Monocytes % (Manual) Eosinophils % (Manual) PT INR D-Dimer POC ABG pH POC ABG pCO2 POC ABG pO2 344 H Sodium Potassium Chloride Carbon Dioxide BUN Creatinine Glucose Calcium Total Creatine Kinase CK-MB (CK-2) Troponin T 0.106 H* D Albumin LDL Cholesterol Direct 39 L 12/12/18 12/12/18 12/12/18 02:30 02:30 03:50 WBC RBC Hgb Hct RDW Plt Count [place] % (Auto) Eos % (Auto) [place] # Eos # Seg Neutrophils % Seg Neuts % (Manual) Lymphocytes % (Manual) Monocytes % (Manual) Eosinophils % (Manual) PT INR D-Dimer POC ABG pH 7.494 H POC ABG pCO2 POC ABG pO2 220 H Sodium Potassium Chloride Carbon Dioxide 18 L BUN 23 H Creatinine 1.4 H Glucose 189 H Calcium 7.5 L Total Creatine Kinase 431 H CK-MB (CK-2) 6.9 H Troponin T 0.146 H* D Albumin LDL Cholesterol Direct 12/12/18 12/12/18 12/13/18 06:45 17:37 04:15 WBC RBC 2.84 L Hgb 8.2 L Hct 25.2 L RDW 17.9 H Plt Count 116 L [place] % (Auto) 8.3 H Eos % (Auto) [place] # 0.9 H Eos # Seg Neutrophils % Seg Neuts % (Manual) Lymphocytes % (Manual) Monocytes % (Manual) Eosinophils % (Manual) PT INR D-Dimer POC ABG pH POC ABG pCO2 32.4 L POC ABG pO2 Sodium Potassium Chloride Carbon Dioxide BUN Creatinine Glucose Calcium Total Creatine Kinase 978 H CK-MB (CK-2) 9.4 H Troponin T 0.131 H* Albumin LDL Cholesterol Direct 12/13/18 12/14/18 12/15/18 04:15 04:20 04:13 WBC 12.4 H RBC 2.92 L 2.92 L Hgb 8.5 L 8.7 L Hct 26.2 L 26.0 L RDW 17.9 H 17.7 H Plt Count 113 L 119 L [place] % (Auto) 7.4 H Eos % (Auto) 6.6 H [place] # Eos # 0.6 H Seg Neutrophils % Seg Neuts % (Manual) Lymphocytes % (Manual) Monocytes % (Manual) Eosinophils % (Manual) PT INR D-Dimer POC ABG pH POC ABG pCO2 POC ABG pO2 Sodium Potassium Chloride 108.3 H Carbon Dioxide 20 L BUN 21 H Creatinine 1.3 H Glucose 109 H Calcium 7.9 L Total Creatine Kinase CK-MB (CK-2) Troponin T Albumin LDL Cholesterol Direct Allied health notes reviewed: nursing
[2018-12-15] MEDS: COREG PO SCH ×2 (09:47→23:43)
[2018-12-15] MEDS: ZESTRIL PO SCH (09:47)
[2018-12-15] MEDS: SODIUM CHLORIDE FLUSH SYRINGE 10 ML IV SCH ×2 (09:48→21:55)
[2018-12-15] MEDS: LASIX PO SCH (09:48)
[2018-12-15] MEDS: PEPCID PO SCH (09:49)
[2018-12-15] MEDS ORDERED: NACL 0.9% 500 ML 500 ML IV SCH (10:00)
[2018-12-15 11:18] LABS: Iron 36 ug/dL (37-170); Total Iron Binding Capacity 251 mcg/dL (250-450)
--- NOTE | 2018-12-15 11:35 | Progress Note ---
Assessment and Plan I have discussed with the patient and family. She will undergo coronary angiography in a.m. for ischemic evaluation. Obtain VQ scan today due to significant pulmonary hypertension. She will benefit from anemia evaluation as well. Ultimately, she will require DFT testing when she returns to her EP/veterinary practice manager in [place]. - Patient Problems (1) Cardiac arrest Current Visit: Yes Status: Acute (2) Ventricular fibrillation Current Visit: Yes Status: Acute (3) Ventricular tachycardia Current Visit: Yes Status: Acute (4) ICD (implantable cardioverter-defibrillator) discharge Current Visit: Yes Status: Acute (5) Acute respiratory failure Current Visit: Yes Status: Acute (6) Elevated troponin level Current Visit: Yes Status: Acute (7) Thrombocytopenia Current Visit: Yes Status: Acute (8) Moderate to severe pulmonary hypertension Current Visit: Yes Status: Acute (9) CAD (coronary artery disease) Current Visit: Yes Status: Chronic Qualifiers: Coronary Disease-Associated Artery/Lesion type: [place] artery (10) Ischemic cardiomyopathy Current Visit: Yes Status: Acute (11) Right ventricular dysfunction Current Visit: Yes Status: Acute (12) Hx of CABG Current Visit: Yes Status: Chronic (13) COPD (chronic obstructive pulmonary disease) Current Visit: Yes Status: Chronic (14) Hypothyroidism Current Visit: Yes Status: Chronic Subjective Date of service: 12/15/18 Principal diagnosis: Ac hypoxemic resp failure; Cardiac arrest; KAYLEEN; Ac encephalopathy; NSTEMI Interval history: No complaint. Feels much better. In normal sinus rhythm with no arrhythmias. Objective Vital Signs Temp Pulse Pulse Resp Resp BP Pulse Ox 12/15/18 09:47 74 127/59 12/15/18 08:17 97.6 F 83 22 145/75 100 12/15/18 08:13 80 18 12/15/18 07:58 90 18 98 12/15/18 04:22 97.7 F 78 18 120/57 94 12/15/18 01:37 115 H 22 12/15/18 00:31 78 12/14/18 23:31 97.8 F 74 18 128/62 100 12/14/18 20:18 70 20 92 12/14/18 19:50 98.1 F 72 18 135/55 99 12/14/18 14:10 91 H 18 12/14/18 14:04 100 12/14/18 14:00 79 18 12/14/18 13:01 97.1 F L 68 18 112/54 95 12/14/18 12:00 98.6 F 72 11 L 119/55 92 - Physical Examination General: No Apparent Distress HEENT: Positive: EOMI, Normocephaly, Mucus Membranes Moist Neck: Positive: neck supple, trachea midline Cardiac: Positive: Reg Rate and Rhythm, S1/S2 Lungs: Positive: clear to auscultation Neuro: Positive: Grossly Intact Abdomen: Positive: Soft, Active Bowel Sounds. Negative: Tender Skin: Positive: Clear. Negative: Rash Musculoskeletal: Normal Range of Motion Extremities: Present: normal. Absent: edema - Labs and Meds CBC 12/15/18 Range/Units 04:13 WBC 8.9 (4.5-11.0) K/mm3 RBC 2.92 L (3.65-5.03) M/mm3 Hgb 8.7 L (10.1-14.3) gm/dl Hct 26.0 L (30.3-42.9) % Plt Count 119 L (140-440) K/mm3 Lymph # 2.7 (1.2-5.4) K/mm3 [place] # 0.7 (0.0-0.8) K/mm3 Eos # 0.6 H (0.0-0.4) K/mm3 Baso # 0.0 (0.0-0.1) K/mm3 - Imaging and Cardiology Echo: image reviewed - Telemetry EKG Rhythm: Sinus Rhythm - EKG Sinus rhythms and dysrhythmias: sinus rhythm AV and intraventricular conduction: right bundle branch block, left anterior fascicular - Allied health notes Allied health notes reviewed: nursing
--- NOTE | 2018-12-15 12:46 | XRay Report ---
CHEST 1 VIEW 2124 INDICATION / CLINICAL INFORMATION: ETT placement. COMPARISON: None available. FINDINGS: SUPPORT DEVICES: Endotracheal tube extends into the proximal portion of the right mainstem bronchus. Withdrawal by approximately 3 cm would be optimal. A left jugular central line has its tip in the are a of the distal superior vena cava. Unipolar transvenous left subclavian ICD is noted with lead tip i n the area of the right ventricle. HEART / MEDIASTINUM: Cardiomegaly LUNGS / PLEURA: Pulmonary vascularity appears within normal limits. No areas of consolidation are see n considering rotation. No pneumothorax. ADDITIONAL FINDINGS: Gaseous distention of the stomach is noted. IMPRESSION: Endotracheal tube in a low position as above. Recommend partial withdrawal. CRITICAL RESULT: Time of Discovery: 2103 Time of Communication: 2106 Licensed Practitioner Receiving Report: Dr. Tor Conteh Read Back Performed: not pertinent Signer Name: Sean Ragland MD Signed: 12/11/2018 10:08 PM Workstation Name: [id number]
--- NOTE | 2018-12-15 14:22 | Nuclear Medicine Report ---
VENTILATION PERFUSION PULMONARY SCINTIGRAPHY HISTORY: Severe pulmonary hypertension COMPARISON: 12/14/2018 chest radiograph. TECHNIQUE: Radiopharmaceutical was inhaled. Tc-99m-MAA was then injected. Ventilation and perfusion images were acquired. RADIOPHARMACEUTICAL: 15.9 mCi of Xe-133 inhaled 5.4 mCi of Tc-99m-MAA injected FINDINGS: VENTILATION: There is homogeneous distribution of the radiotracer throughout both lungs. Mild air tra pping is noted bilaterally consistent with mild COPD. PERFUSION: No significant segmental or non-segmental defect. Prominent cardiac shadow and blunting of the left costophrenic angle consistent with a small left pleural effusion are noted. Additional Findings: None. IMPRESSION: 1. Low probability for pulmonary embolism. Signer Name: Yariel Gutierrez Jr, MD Signed: 12/15/2018 2:17 PM Workstation Name: [id number]
[2018-12-15] MEDS: MORPHINE IV PRN (16:16)
--- NOTE | 2018-12-15 17:24 | Progress Note ---
Assessment and Plan Assessment and plan: Ventricular tachycardia/fibrillation. Continue intravenous amiodarone drip. She may require ischemic evaluation subsequently after adequate stabilization. Cardiology following. Cardiogenic shock, resolved, off pressors. Acute hypoxic respiratory failure was intubated, extubated yesterday 12/13. Pulmonary following. Anemia. Hgb 8.7 obtain TSH, Iron Ferritin, stool occult blood Thrombocytopenia. Follow CBC. s/p cardiac arrest. Assessment neurological function off sedation. CAD. History of CABG. Per cardiology. COPD. Continue bronchodilators. Hypothyroidism. Continue Synthroid. KAYLEEN Monitor BMP History Interval history: s/p cardiac arrest Extubated no chest pain Hospitalist Physical - Physical exam Narrative exam: Gen: Not in acute distress, lying in bed, HEENT: Normocephalic, atraumatic Neck: supple, no JVD Heart: S1 and S2 reg, no murmurs, rubs or gallop Lungs: Clear, no crackles or wheeze Abd: soft, non tender, non distended, normal BS Ext:no edema, no clubbing, no cyanosis Neuro: Awake,alert,oriented,moves all ext - Constitutional Vitals: Temp Pulse Resp BP Pulse Ox 97.6 F 72 18 127/59 98 12/15/18 08:17 12/15/18 15:01 12/15/18 15:01 12/15/18 09:47 12/15/18 10:00 General appearance: Present: no acute distress, other (unresponsive, orally intubated on mechanical ventilation) Results - Labs CBC & Chem 7: 12/15/18 04:13 12/14/18 04:20 Labs: Laboratory Last Values WBC 8.9 K/mm3 (4.5-11.0) 12/15/18 04:13 RBC 2.92 M/mm3 (3.65-5.03) L 12/15/18 04:13 Hgb 8.7 gm/dl (10.1-14.3) L 12/15/18 04:13 Hct 26.0 % (30.3-42.9) L 12/15/18 04:13 MCV 89 fl (79-97) 12/15/18 04:13 MCH 30 pg (28-32) 12/15/18 04:13 MCHC 34 % (30-34) 12/15/18 04:13 RDW 17.7 % (13.2-15.2) H 12/15/18 04:13 Plt Count 119 K/mm3 (140-440) L 12/15/18 04:13 Lymph % (Auto) 30.2 % (13.4-35.0) 12/15/18 04:13 [place] % (Auto) 7.4 % (0.0-7.3) H 12/15/18 04:13 Eos % (Auto) 6.6 % (0.0-4.3) H 12/15/18 04:13 Baso % (Auto) 0.4 % (0.0-1.8) 12/15/18 04:13 Lymph # 2.7 K/mm3 (1.2-5.4) 12/15/18 04:13 [place] # 0.7 K/mm3 (0.0-0.8) 12/15/18 04:13 Eos # 0.6 K/mm3 (0.0-0.4) H 12/15/18 04:13 Baso # 0.0 K/mm3 (0.0-0.1) 12/15/18 04:13 Add Manual Diff Complete 12/11/18 21:30 Total Counted 100 12/11/18 21:30 Seg Neutrophils % 55.4 % (40.0-70.0) 12/15/18 04:13 Seg Neuts % (Manual) 35.0 % (40.0-70.0) L 12/11/18 21:30 0 % 12/11/18 21:30 51.0 % (13.4-35.0) H 12/11/18 21:30 Reactive Lymphs % (Man) 0 % 12/11/18 21:30 8.0 % (0.0-7.3) H 12/11/18 21:30 5.0 % (0.0-4.3) H 12/11/18 21:30 1.0 % (0.0-1.8) 12/11/18 21:30 0 % 12/11/18 21:30 0 % 12/11/18 21:30 0 % 12/11/18 21:30 0 % 12/11/18 21:30 Nucleated RBC % Not Reportable 12/11/18 21:30 Seg Neutrophils # 5.0 K/mm3 (1.8-7.7) 12/15/18 04:13 Seg Neutrophils # Man 2.7 K/mm3 (1.8-7.7) 12/11/18 21:30 Band Neutrophils # 0.0 K/mm3 12/11/18 21:30 3.9 K/mm3 (1.2-5.4) 12/11/18 21:30 Abs React Lymphs (Man) 0.0 K/mm3 12/11/18 21:30 0.6 K/mm3 (0.0-0.8) 12/11/18 21:30 0.4 K/mm3 (0.0-0.4) 12/11/18 21:30 0.1 K/mm3 (0.0-0.1) 12/11/18 21:30 0.0 K/mm3 12/11/18 21:30 0.0 K/mm3 12/11/18 21:30 0.0 K/mm3 12/11/18 21:30 Blast Cells # 0.0 K/mm3 12/11/18 21:30 WBC Morphology Not Reportable 12/11/18 21:30 Hypersegmented Neuts Not Reportable 12/11/18 21:30 Hyposegmented Neuts Not Reportable 12/11/18 21:30 Hypogranular Neuts Not Reportable 12/11/18 21:30 Not Reportable 12/11/18 21:30 Not Reportable 12/11/18 21:30 Not Reportable 12/11/18 21:30 Not Reportable 12/11/18 21:30 Not Reportable 12/11/18 21:30 Not Reportable 12/11/18 21:30 Consistent w auto 12/11/18 21:30 Not Reportable 12/11/18 21:30 Plt Clumps, EDTA Not Reportable 12/11/18 21:30 Few 12/11/18 21:30 Not Reportable 12/11/18 21:30 Not Reportable 12/11/18 21:30 Plt Morphology Comment Not Reportable 12/11/18 21:30 RBC Morphology Not Reportable 12/11/18 21:30 Dimorphic RBCs Not Reportable 12/11/18 21:30 Not Reportable 12/11/18 21:30 Not Reportable 12/11/18 21:30 Not Reportable 12/11/18 21:30 1+ 12/11/18 21:30 Not Reportable 12/11/18 21:30 Not Reportable 12/11/18 21:30 Not Reportable 12/11/18 21:30 Not Reportable 12/11/18 21:30 Not Reportable 12/11/18 21:30 Not Reportable 12/11/18 21:30 Not Reportable 12/11/18 21:30 Few 12/11/18 21:30 Not Reportable 12/11/18 21:30 Not Reportable 12/11/18 21:30 Not Reportable 12/11/18 21:30 Not Reportable 12/11/18 21:30 Not Reportable 12/11/18 21:30 Not Reportable 12/11/18 21:30 Not Reportable 12/11/18 21:30 Acanthocytes (Spur) Not Reportable 12/11/18 21:30 Rouleaux Not Reportable 12/11/18 21:30 Not Reportable 12/11/18 21:30 Not Reportable 12/11/18 21:30 Not Reportable 12/11/18 21:30 Not Reportable 12/11/18 21:30 Hem Pathologist Commnt No 12/11/18 21:30 PT 18.5 Sec. (12.2-14.9) H 12/11/18 21:30 INR 1.58 (0.87-1.13) H 12/11/18 21:30 APTT 31.5 Sec. (24.2-36.6) 12/11/18 21:30 3643.18 ng/mlDDU (0-234) H 12/11/18 21:30 POC ABG pH 7.387 (7.35-7.45) 12/15/18 15:04 POC ABG pCO2 41.7 (35-45) 12/15/18 15:04 POC ABG pO2 110 (80-105) H 12/15/18 15:04 POC ABG HCO3 25.1 (22-26 mml/L) 12/15/18 15:04 POC ABG Total CO2 26 (23-27mmol/L) 12/15/18 15:04 POC ABG O2 Sat 98 12/15/18 15:04 POC ABG Base Excess 0 ((-2) - (+3)mmol/L) 12/15/18 15:04 28 % 12/15/18 15:04 Sodium 138 mmol/L (137-145) 12/14/18 04:20 Potassium 4.1 mmol/L (3.6-5.0) 12/14/18 04:20 Chloride 103.1 mmol/L (98-107) 12/14/18 04:20 Carbon Dioxide 22 mmol/L (22-30) 12/14/18 04:20 17 mmol/L 12/14/18 04:20 BUN 15 mg/dL (7-17) 12/14/18 04:20 1.1 mg/dL (0.7-1.2) 12/14/18 04:20 Estimated GFR 58 ml/min 12/14/18 04:20 14 % 12/14/18 04:20 Glucose 95 mg/dL (65-100) 12/14/18 04:20 POC Glucose 154 (70-105) H 12/15/18 12:22 Calcium 8.5 mg/dL (8.4-10.2) 12/14/18 04:20 Magnesium 1.80 mg/dL (1.7-2.3) 12/12/18 06:45 Iron 36 ug/dL (37-170) L 12/15/18 10:29 TIBC 251 mcg/dL (250-450) 12/15/18 10:29 79.9 ng/mL (13.0-400.0) 12/15/18 10:29 0.30 mg/dL (0.1-1.2) 12/11/18 21:30 AST 35 units/L (5-40) 12/11/18 21:30 ALT 12 units/L (7-56) 12/11/18 21:30 85 units/L (35-129) 12/11/18 21:30 978 units/L (30-135) H 12/12/18 06:45 CK-MB (CK-2) 9.4 ng/mL (0.0-4.0) H 12/12/18 06:45 CK-MB (CK-2) Rel Index 0.9 (0-4) 12/12/18 06:45 0.131 ng/mL (0.00-0.029) H* 12/12/18 06:45 7.5 g/dL (6.3-8.2) 12/11/18 21:30 3.4 g/dL (3.9-5) L 12/11/18 21:30 0.8 % 12/11/18 21:30 Triglycerides 123 mg/dL (2-149) 12/12/18 00:35 Cholesterol 88 mg/dL (50-199) 12/12/18 00:35 39 mg/dL (50-130) L 12/12/18 00:35 41 mg/dL (40-59) 12/12/18 00:35 2.14 % 12/12/18 00:35 Vitamin B12 702.1 pg/mL (211-911) 12/15/18 10:29 13.86 ng/mL (7.3-26.0) 12/15/18 10:35 TSH 7.660 mlU/mL (0.270-4.200) H 12/15/18 10:29 Free T4 0.81 ng/dL (0.76-1.46) 12/15/18 10:29 Yellow (Yellow) 12/11/18 23:31 Clear (Clear) 12/11/18 23:31 6.0 (5.0-7.0) 12/11/18 23:31 Ur Specific [place] 1.008 (1.003-1.030) 12/11/18 23:31 <15 mg/dl mg/dL (Negative) 12/11/18 23:31 Neg mg/dL (Negative) 12/11/18 23:31 Neg mg/dL (Negative) 12/11/18 23:31 Neg (Negative) 12/11/18 23:31 Neg (Negative) 12/11/18 23:31 Neg (Negative) 12/11/18 23:31 < 2.0 mg/dL (<2.0) 12/11/18 23:31 Ur Leukocyte Esterase Neg (Negative) 12/11/18 23:31 2.0 /HPF (0.0-6.0) 12/11/18 23:31 1.0 /HPF (0.0-6.0) 12/11/18 23:31 Hyaline Casts 1 /LPF 12/11/18 23:31 Presumptive negative 12/11/18 23:31 Presumptive negative 12/11/18 23:31 Ur Barbiturates Screen Presumptive negative 12/11/18 23:31 Ur Phencyclidine Scrn Presumptive negative 12/11/18 23:31 Ur Amphetamines Screen Presumptive negative 12/11/18 23:31 U Benzodiazepines Scrn Presumptive negative 12/11/18 23:31 Presumptive negative 12/11/18 23:31 U Marijuana (THC) Screen Presumptive negative 12/11/18 23:31 Disclamer 12/11/18 23:31 Active Medications - Current Medications Current Medications: Generic Name Dose Route Start Last Admin Trade Name Freq PRN Reason Stop Dose Admin Acetaminophen 650 mg 12/12/18 00:38 Tylenol PO Q4H PRN Pain MILD(1-3)/Fever >100.5/STAPLES Albuterol/Ipratropium 1 ampul 12/12/18 14:00 12/15/18 14:41 Duoneb *Not For Prn Use* IH 1 ampul Q6HRT KAVITHA Administration Carvedilol 6.25 mg 12/14/18 10:30 12/15/18 09:47 Coreg PO 6.25 mg BID KAVITHA Administration Famotidine 20 mg 12/15/18 10:00 12/15/18 09:49 Pepcid PO 20 mg DAILY KAVITHA Administration Furosemide 20 mg 12/13/18 13:00 12/15/18 09:48 Lasix PO 20 mg QDAY KAVITHA Administration Hydrophilic Ointment 1 applic 12/11/18 21:59 Vaseline Lip Therapy TP Q2HR PRN Dry Lips Sodium Chloride 500 mls @ 50 mls/hr 12/15/18 10:00 Nacl 0.9% 500 Ml IV 12/15/18 19:59 DIRECT KAVITHA Lisinopril 5 mg 12/14/18 10:00 12/15/18 09:47 Zestril PO 5 mg QDAY KAVITHA Administration Morphine Sulfate 2 mg 12/14/18 11:58 12/15/18 16:16 Morphine IV 2 mg Q4H PRN Administration Pain, Moderate (4-6) Multi-Ingred Cream/Lotion/Oil/Oint 1 applic 12/11/18 21:26 Artificial Tears Ophth Oint OU Q4HR PRN Dry Eye(s) Ondansetron HCl 4 mg 12/12/18 00:38 Zofran IV Q8H PRN Nausea And Vomiting Sodium Chloride 10 ml 12/12/18 10:00 12/15/18 09:48 Sodium Chloride Flush Syringe 10 Ml IV 10 ml BID KAVITHA Administration Sodium Chloride 10 ml 12/12/18 00:38 Sodium Chloride Flush Syringe 10 Ml IV PRN PRN LINE FLUSH Nutrition/Malnutrition Assess - Dietary Evaluation Nutrition/Malnutrition Findings: Nutrition Notes Start: 12/12/18 10:59 Freq: Status: Active Protocol: Document 12/14/18 15:07 RM (Rec: 12/14/18 15:11 RM [email or web address]) Nutrition Notes Initial or Follow up Reassessment Current Diagnosis COPD,Hypertension Other Pertinent Diagnosis Cardiac Arrest, AMI Current Diet Cardiac, GI soft Labs/Tests Reviewed Pertinent Medications Lasix Height 5 ft 6 in Weight 70 kg [place] Body Weight (kg) 59.09 BMI 24.9 Subjective/Other Information Pt extubated and moved to . Diet advanced to Cardiac. Nurse placing catheter at time of visit. Recorded PO intake 0% X 1 meal. Percent of energy/protein needs met: 0%/0% Burn Absent Trauma Absent #1 Nutrition Diagnosis Inadequate oral intake Diagnosis Progress(for reassessment Continues documentation) Is patient on ventilator? No Is Patient Ambulatory and/or Out of Bed No REE-([facility]-confined to bed) [phone] Calculation Used for Recommendations [facility] Additional Notes Protein needs: 70-91g (1-1.3g/ kg) Fluid needs are 1ml/kcal Nutrition Intervention Change Diet Order: Continue current Add Supplement/Snack (indicate name/kcal Ensure Enlive 1 daily /protein ) Provides kCal: 350 Provides Protein (gm) 20 Goal #1 Meet at least 75% of calorie and protein needs via PO and ONS intakes Anticipated Discharge Needs: Cardiac diet Follow-Up By: 12/16/18 Additional Comments Follow for PO and ONS intakes
[2018-12-16] MEDS: MORPHINE IV PRN (00:49)
[2018-12-16] MEDS: DUONEB *Not for PRN Use IH SCH ×4 (02:28→19:26)
[2018-12-16] MEDS ORDERED: NACL 0.9% 500 ML 500 ML ONE (08:43)
[2018-12-16] MEDS ORDERED: HEPARIN 10,000 UNITS/10 ML ONE (08:52)
[2018-12-16] MEDS ORDERED: HEPARIN/NS 5000 UNIT/500ML(CATH LAB) 1,000 ML IR ONE (08:52)
[2018-12-16] MEDS ORDERED: NITROGLYCERIN SYRINGE 0 ML ONE (08:53)
[2018-12-16] MEDS ORDERED: XYLOCAINE 2% INFILTRATI ONE (08:53)
[2018-12-16] MEDS ORDERED: VERSED ONE (09:07)
[2018-12-16] MEDS ORDERED: SUBLIMAZE ONE (09:08)
[2018-12-16] MEDS: PEPCID PO SCH (10:39)
[2018-12-16] MEDS: SODIUM CHLORIDE FLUSH SYRINGE 10 ML IV SCH ×2 (10:39→22:43)
[2018-12-16] MEDS: ZESTRIL PO SCH (10:39)
[2018-12-16] MEDS: LASIX PO SCH (10:39)
[2018-12-16] MEDS: COREG PO SCH ×2 (10:39→22:43)
--- NOTE | 2018-12-16 11:18 | Progress Note ---
Assessment and Plan cardiac arrest acute on chronic systolic heart failure respiratory failure encelapthy secondary to cardiac arrest nstemi type 2 htn chol cad rec: in view of not amenable intervention of lad, treat medically, review of records from pt was on elquis, will hold in view of anemia, but baseline hb is 9.7, cont plavix and asa, pt is nsr here, pt records states allergy to ruthie , will stop lisinopril and start hydralzine and imdur and pt was on crestor 20mg , start lipitor 40mg and pt family would like to take back home. Subjective Date of service: 12/16/18 Principal diagnosis: Ac hypoxemic resp failure; Cardiac arrest; KAYLEEN; Ac encephalopathy; NSTEMI Interval history: pt is awake orientation is better Objective Vital Signs Temp Pulse Pulse Pulse Pulse Pulse Pulse 12/16/18 11:00 81 12/16/18 10:45 82 12/16/18 10:30 82 12/16/18 10:10 98.5 F 82 12/16/18 07:38 100 H 12/16/18 02:38 73 12/15/18 22:00 72 72 72 72 12/15/18 19:58 98.0 F 12/15/18 19:38 72 12/15/18 19:23 12/15/18 16:15 97.7 F 50 L 12/15/18 15:01 72 12/15/18 14:41 67 Pulse Resp Resp BP Pulse Ox 12/16/18 11:00 15 120/57 100 12/16/18 10:45 14 128/60 100 12/16/18 10:30 18 142/80 100 12/16/18 10:10 15 132/78 100 12/16/18 07:38 20 96 12/16/18 02:38 16 12/15/18 22:00 72 18 98 12/15/18 19:58 15 111/50 91 12/15/18 19:38 16 12/15/18 19:23 100 12/15/18 16:15 16 120/56 92 12/15/18 15:01 18 12/15/18 14:41 18 - Physical Examination General: No Apparent Distress HEENT: Positive: EOMI, Normocephaly, Mucus Membranes Moist Neck: Positive: neck supple, trachea midline Cardiac: Positive: Reg Rate and Rhythm Lungs: Positive: clear to auscultation Neuro: Positive: Grossly Intact Abdomen: Positive: Soft, Active Bowel Sounds. Negative: Tender Skin: Positive: Clear. Negative: Rash Musculoskeletal: Normal Range of Motion Extremities: Present: normal. Absent: edema - Imaging and Cardiology EKG: image reviewed Echo: image reviewed Cardiac cath: report reviewed (lt main distal 100%, hubbard is atretic and svg to om1 patent, rca mid stent patent ef 25-30% right to left collaterals to diffuse lad not amenable to revascularization, and svg to pda 100% and svg to diagona 1 100%) - Telemetry EKG Rhythm: Sinus Rhythm - EKG Sinus rhythms and dysrhythmias: sinus rhythm AV and intraventricular conduction: right bundle branch block, left anterior fascicular - Allied health notes Allied health notes reviewed: nursing
--- NOTE | 2018-12-16 13:04 | Progress Note ---
Assessment and Plan Acute hypoxemic respiratory failure, s/p mechanical ventilatory support, extubated Status post cardiac arrest, possible ventricular tachycardia with return of spontaneous circulation. History of cardiomyopathy Coronary artery disease, status post coronary artery bypass graft. Chronic obstructive pulmonary disease. Acute encephalopathy Hyperkalemia at presentation. Acute kidney injury. Elevated serum troponins. Oropharyngeal dysphagia Subjective Date of service: 12/09/18 Principal diagnosis: Ac hypoxemic resp failure; Cardiac arrest; KAYLEEN; Ac en cephalopathy; NSTEMI Interval history: Patient is seen today for: Ac hypoxemic resp failure; S/P cardiac arrest; H/O CMOP; CAD; COPD; Acute encephalopathy, possible anoxic element; Acute kidney injury; NSTEMI; Oropharyngeal dysphagia. Seen and examined at bedside; 24hour events reviewed; nursing and respiratory care staff consulted; no adverse overnight events reported to me; resting peacefully in bed; Objective Vital Signs - 12hr 12/16/18 12/16/18 12/16/18 02:38 07:38 10:00 Temperature Pulse Rate Pulse Rate [ 73 Apical] Pulse Rate [ 73 Left Dorsalis Pedis] Pulse Rate [ 73 Left Radial] Pulse Rate [ 73 100 H Posterior Bilateral Throughout] Pulse Rate [ 73 Right Dorsalis Pedis] Pulse Rate [ 73 Right Radial] Respiratory 19 Rate Respiratory 16 20 Rate [Posterior Bilateral Throughout] Blood Pressure O2 Sat by Pulse 96 99 Oximetry 12/16/18 12/16/18 12/16/18 10:10 10:30 10:45 Temperature 98.5 F Pulse Rate 82 82 82 Pulse Rate [ Apical] Pulse Rate [ Left Dorsalis Pedis] Pulse Rate [ Left Radial] Pulse Rate [ Posterior Bilateral Throughout] Pulse Rate [ Right Dorsalis Pedis] Pulse Rate [ Right Radial] Respiratory 15 18 14 Rate Respiratory Rate [Posterior Bilateral Throughout] Blood Pressure 132/78 142/80 128/60 O2 Sat by Pulse 100 100 100 Oximetry 12/16/18 12/16/18 12/16/18 11:00 11:15 11:45 Temperature Pulse Rate 81 81 83 Pulse Rate [ Apical] Pulse Rate [ Left Dorsalis Pedis] Pulse Rate [ Left Radial] Pulse Rate [ Posterior Bilateral Throughout] Pulse Rate [ Right Dorsalis Pedis] Pulse Rate [ Right Radial] Respiratory 15 25 H 14 Rate Respiratory Rate [Posterior Bilateral Throughout] Blood Pressure 120/57 123/71 143/74 O2 Sat by Pulse 100 100 100 Oximetry 12/16/18 12/16/18 12/16/18 12:15 12:30 12:45 Temperature Pulse Rate 83 83 86 Pulse Rate [ Apical] Pulse Rate [ Left Dorsalis Pedis] Pulse Rate [ Left Radial] Pulse Rate [ Posterior Bilateral Throughout] Pulse Rate [ Right Dorsalis Pedis] Pulse Rate [ Right Radial] Respiratory 16 15 16 Rate Respiratory Rate [Posterior Bilateral Throughout] Blood Pressure 136/87 145/78 142/75 O2 Sat by Pulse 100 100 100 Oximetry Constitutional: no acute distress, other (elderly looking AAF, normocephalic and atraumatic with mildly increased resp effort at rest) Eyes: non-icteric ENT: oropharynx moist, other (ETT 24 cm VERONICA) Neck: supple, no lymphadenopathy, no JVD Effort: mildly labored Ascultation: Bilateral: clear, diminished breath sounds Percussion: Bilateral: not dull Cardiovascular: regular rate and rhythm, murmur noted (systyolic) Gastrointestinal: normoactive bowel sounds, soft, non-tender, non-distended Integumentary: normal Extremities: no cyanosis, no edema, pulses normal, no ischemia or petechiae Neurologic: normal mental status, non-focal exam (grossly), pupils equal and round, motor strength normal and Psychiatric: mood appropriate, affect normal CBC and BMP: 12/15/18 04:13 12/14/18 04:20 ABG, PT/INR, D-dimer: ABG POC ABG pH 7.387 (7.35-7.45) 12/15/18 15:04 POC ABG pCO2 41.7 (35-45) 12/15/18 15:04 POC ABG pO2 110 (80-105) H 12/15/18 15:04 POC ABG HCO3 25.1 (22-26 mml/L) 12/15/18 15:04 POC ABG Total CO2 26 (23-27mmol/L) 12/15/18 15:04 POC ABG O2 Sat 98 12/15/18 15:04 PT/INR, D-dimer PT 18.5 Sec. (12.2-14.9) H 12/11/18 21:30 INR 1.58 (0.87-1.13) H 12/11/18 21:30 3643.18 ng/mlDDU (0-234) H 12/11/18 21:30 Abnormal lab findings: Abnormal Labs 12/11/18 12/11/18 12/11/18 21:30 21:30 21:30 WBC RBC 3.44 L Hgb Hct RDW 17.9 H Plt Count [place] % (Auto) Eos % (Auto) [place] # Eos # Seg Neutrophils % Seg Neuts % (Manual) 35.0 L Lymphocytes % (Manual) 51.0 H Monocytes % (Manual) 8.0 H Eosinophils % (Manual) 5.0 H PT 18.5 H INR 1.58 H D-Dimer 3643.18 H POC ABG pH POC ABG pCO2 POC ABG pO2 Sodium 136 L Potassium 5.3 H Chloride 97.2 L Carbon Dioxide 20 L BUN 18 H Creatinine 1.4 H Glucose 137 H POC Glucose Calcium Iron Total Creatine Kinase CK-MB (CK-2) Troponin T Albumin 3.4 L LDL Cholesterol Direct TSH 12/11/18 12/12/18 12/12/18 22:35 00:35 02:30 WBC RBC 3.16 L Hgb 9.2 L Hct 27.9 L RDW 17.7 H Plt Count 127 L [place] % (Auto) Eos % (Auto) [place] # Eos # Seg Neutrophils % 75.7 H Seg Neuts % (Manual) Lymphocytes % (Manual) Monocytes % (Manual) Eosinophils % (Manual) PT INR D-Dimer POC ABG pH POC ABG pCO2 POC ABG pO2 344 H Sodium Potassium Chloride Carbon Dioxide BUN Creatinine Glucose POC Glucose Calcium Iron Total Creatine Kinase CK-MB (CK-2) Troponin T 0.106 H* D Albumin LDL Cholesterol Direct 39 L TSH 12/12/18 12/12/18 12/12/18 02:30 02:30 03:50 WBC RBC Hgb Hct RDW Plt Count [place] % (Auto) Eos % (Auto) [place] # Eos # Seg Neutrophils % Seg Neuts % (Manual) Lymphocytes % (Manual) Monocytes % (Manual) Eosinophils % (Manual) PT INR D-Dimer POC ABG pH 7.494 H POC ABG pCO2 POC ABG pO2 220 H Sodium Potassium Chloride Carbon Dioxide 18 L BUN 23 H Creatinine 1.4 H Glucose 189 H POC Glucose Calcium 7.5 L Iron Total Creatine Kinase 431 H CK-MB (CK-2) 6.9 H Troponin T 0.146 H* D Albumin LDL Cholesterol Direct TSH 12/12/18 12/12/18 12/13/18 06:45 17:37 04:15 WBC RBC 2.84 L Hgb 8.2 L Hct 25.2 L RDW 17.9 H Plt Count 116 L [place] % (Auto) 8.3 H Eos % (Auto) [place] # 0.9 H Eos # Seg Neutrophils % Seg Neuts % (Manual) Lymphocytes % (Manual) Monocytes % (Manual) Eosinophils % (Manual) PT INR D-Dimer POC ABG pH POC ABG pCO2 32.4 L POC ABG pO2 Sodium Potassium Chloride Carbon Dioxide BUN Creatinine Glucose POC Glucose Calcium Iron Total Creatine Kinase 978 H CK-MB (CK-2) 9.4 H Troponin T 0.131 H* Albumin LDL Cholesterol Direct TSH 12/13/18 12/14/18 12/15/18 04:15 04:20 04:13 WBC 12.4 H RBC 2.92 L 2.92 L Hgb 8.5 L 8.7 L Hct 26.2 L 26.0 L RDW 17.9 H 17.7 H Plt Count 113 L 119 L [place] % (Auto) 7.4 H Eos % (Auto) 6.6 H [place] # Eos # 0.6 H Seg Neutrophils % Seg Neuts % (Manual) Lymphocytes % (Manual) Monocytes % (Manual) Eosinophils % (Manual) PT INR D-Dimer POC ABG pH POC ABG pCO2 POC ABG pO2 Sodium Potassium Chloride 108.3 H Carbon Dioxide 20 L BUN 21 H Creatinine 1.3 H Glucose 109 H POC Glucose Calcium 7.9 L Iron Total Creatine Kinase CK-MB (CK-2) Troponin T Albumin LDL Cholesterol Direct TSH 12/15/18 12/15/18 12/15/18 10:29 10:29 12:22 WBC RBC Hgb Hct RDW Plt Count [place] % (Auto) Eos % (Auto) [place] # Eos # Seg Neutrophils % Seg Neuts % (Manual) Lymphocytes % (Manual) Monocytes % (Manual) Eosinophils % (Manual) PT INR D-Dimer POC ABG pH POC ABG pCO2 POC ABG pO2 Sodium Potassium Chloride Carbon Dioxide BUN Creatinine Glucose POC Glucose 154 H Calcium Iron 36 L Total Creatine Kinase CK-MB (CK-2) Troponin T Albumin LDL Cholesterol Direct TSH 7.660 H 12/15/18 15:04 WBC RBC Hgb Hct RDW Plt Count [place] % (Auto) Eos % (Auto) [place] # Eos # Seg Neutrophils % Seg Neuts % (Manual) Lymphocytes % (Manual) Monocytes % (Manual) Eosinophils % (Manual) PT INR D-Dimer POC ABG pH POC ABG pCO2 POC ABG pO2 110 H Sodium Potassium Chloride Carbon Dioxide BUN Creatinine Glucose POC Glucose Calcium Iron Total Creatine Kinase CK-MB (CK-2) Troponin T Albumin LDL Cholesterol Direct TSH Allied health notes reviewed: nursing
--- NOTE | 2018-12-16 13:40 | Progress Note ---
Assessment and Plan Assessment and plan: Ventricular tachycardia/fibrillation. Continue intravenous amiodarone drip. She may require ischemic evaluation subsequently after adequate stabilization. Cardiology following. cardiac cath done today. Medical management recommended. Cardiogenic shock, resolved, off pressors. Acute hypoxic respiratory failure was intubated, extubated yesterday 12/13. Pulmonary following. Anemia. Hgb 8.7 obtain TSH, Iron Ferritin, stool occult blood Thrombocytopenia. Follow CBC. s/p cardiac arrest. Assessment neurological function off sedation. CAD. History of CABG. COPD. Continue bronchodilators. Hypothyroidism. Continue Synthroid. KAYLEEN due to vasomotor nephropathy, Resolved History Interval history: s/p cardiac arrest Extubated no chest pain Had cardiac cath today Hospitalist Physical - Physical exam Narrative exam: Gen: Not in acute distress, lying in bed, HEENT: Normocephalic, atraumatic Neck: supple, no JVD Heart: S1 and S2 reg, no murmurs, rubs or gallop Lungs: Clear, no crackles or wheeze Abd: soft, non tender, non distended, normal BS Ext:no edema, no clubbing, no cyanosis Neuro: Awake,alert,oriented,moves all ext - Constitutional Vitals: Temp Pulse Resp BP Pulse Ox 98.5 F 83 16 142/75 100 12/16/18 10:10 12/16/18 13:00 12/16/18 13:00 12/16/18 13:00 12/16/18 13:00 General appearance: Present: no acute distress, other (unresponsive, orally intubated on mechanical ventilation) Results - Labs CBC & Chem 7: 12/15/18 04:13 12/14/18 04:20 Labs: Laboratory Last Values WBC 8.9 K/mm3 (4.5-11.0) 12/15/18 04:13 RBC 2.92 M/mm3 (3.65-5.03) L 12/15/18 04:13 Hgb 8.7 gm/dl (10.1-14.3) L 12/15/18 04:13 Hct 26.0 % (30.3-42.9) L 12/15/18 04:13 MCV 89 fl (79-97) 12/15/18 04:13 MCH 30 pg (28-32) 12/15/18 04:13 MCHC 34 % (30-34) 12/15/18 04:13 RDW 17.7 % (13.2-15.2) H 12/15/18 04:13 Plt Count 119 K/mm3 (140-440) L 12/15/18 04:13 Lymph % (Auto) 30.2 % (13.4-35.0) 12/15/18 04:13 [place] % (Auto) 7.4 % (0.0-7.3) H 12/15/18 04:13 Eos % (Auto) 6.6 % (0.0-4.3) H 12/15/18 04:13 Baso % (Auto) 0.4 % (0.0-1.8) 12/15/18 04:13 Lymph # 2.7 K/mm3 (1.2-5.4) 12/15/18 04:13 [place] # 0.7 K/mm3 (0.0-0.8) 12/15/18 04:13 Eos # 0.6 K/mm3 (0.0-0.4) H 12/15/18 04:13 Baso # 0.0 K/mm3 (0.0-0.1) 12/15/18 04:13 Add Manual Diff Complete 12/11/18 21:30 Total Counted 100 12/11/18 21:30 Seg Neutrophils % 55.4 % (40.0-70.0) 12/15/18 04:13 Seg Neuts % (Manual) 35.0 % (40.0-70.0) L 12/11/18 21:30 0 % 12/11/18 21:30 51.0 % (13.4-35.0) H 12/11/18 21:30 Reactive Lymphs % (Man) 0 % 12/11/18 21:30 8.0 % (0.0-7.3) H 12/11/18 21:30 5.0 % (0.0-4.3) H 12/11/18 21:30 1.0 % (0.0-1.8) 12/11/18 21:30 0 % 12/11/18 21:30 0 % 12/11/18 21:30 0 % 12/11/18 21:30 0 % 12/11/18 21:30 Nucleated RBC % Not Reportable 12/11/18 21:30 Seg Neutrophils # 5.0 K/mm3 (1.8-7.7) 12/15/18 04:13 Seg Neutrophils # Man 2.7 K/mm3 (1.8-7.7) 12/11/18 21:30 Band Neutrophils # 0.0 K/mm3 12/11/18 21:30 3.9 K/mm3 (1.2-5.4) 12/11/18 21:30 Abs React Lymphs (Man) 0.0 K/mm3 12/11/18 21:30 0.6 K/mm3 (0.0-0.8) 12/11/18 21:30 0.4 K/mm3 (0.0-0.4) 12/11/18 21:30 0.1 K/mm3 (0.0-0.1) 12/11/18 21:30 0.0 K/mm3 12/11/18 21:30 0.0 K/mm3 12/11/18 21:30 0.0 K/mm3 12/11/18 21:30 Blast Cells # 0.0 K/mm3 12/11/18 21:30 WBC Morphology Not Reportable 12/11/18 21:30 Hypersegmented Neuts Not Reportable 12/11/18 21:30 Hyposegmented Neuts Not Reportable 12/11/18 21:30 Hypogranular Neuts Not Reportable 12/11/18 21:30 Not Reportable 12/11/18 21:30 Not Reportable 12/11/18 21:30 Not Reportable 12/11/18 21:30 Not Reportable 12/11/18 21:30 Not Reportable 12/11/18 21:30 Not Reportable 12/11/18 21:30 Consistent w auto 12/11/18 21:30 Not Reportable 12/11/18 21:30 Plt Clumps, EDTA Not Reportable 12/11/18 21:30 Few 12/11/18 21:30 Not Reportable 12/11/18 21:30 Not Reportable 12/11/18 21:30 Plt Morphology Comment Not Reportable 12/11/18 21:30 RBC Morphology Not Reportable 12/11/18 21:30 Dimorphic RBCs Not Reportable 12/11/18 21:30 Not Reportable 12/11/18 21:30 Not Reportable 12/11/18 21:30 Not Reportable 12/11/18 21:30 1+ 12/11/18 21:30 Not Reportable 12/11/18 21:30 Not Reportable 12/11/18 21:30 Not Reportable 12/11/18 21:30 Not Reportable 12/11/18 21:30 Not Reportable 12/11/18 21:30 Not Reportable 12/11/18 21:30 Not Reportable 12/11/18 21:30 Few 12/11/18 21:30 Not Reportable 12/11/18 21:30 Not Reportable 12/11/18 21:30 Not Reportable 12/11/18 21:30 Not Reportable 12/11/18 21:30 Not Reportable 12/11/18 21:30 Not Reportable 12/11/18 21:30 Not Reportable 12/11/18 21:30 Acanthocytes (Spur) Not Reportable 12/11/18 21:30 Rouleaux Not Reportable 12/11/18 21:30 Not Reportable 12/11/18 21:30 Not Reportable 12/11/18 21:30 Not Reportable 12/11/18 21:30 Not Reportable 12/11/18 21:30 Hem Pathologist Commnt No 12/11/18 21:30 PT 18.5 Sec. (12.2-14.9) H 12/11/18 21:30 INR 1.58 (0.87-1.13) H 12/11/18 21:30 APTT 31.5 Sec. (24.2-36.6) 12/11/18 21:30 3643.18 ng/mlDDU (0-234) H 12/11/18 21:30 POC ABG pH 7.387 (7.35-7.45) 12/15/18 15:04 POC ABG pCO2 41.7 (35-45) 12/15/18 15:04 POC ABG pO2 110 (80-105) H 12/15/18 15:04 POC ABG HCO3 25.1 (22-26 mml/L) 12/15/18 15:04 POC ABG Total CO2 26 (23-27mmol/L) 12/15/18 15:04 POC ABG O2 Sat 98 12/15/18 15:04 POC ABG Base Excess 0 ((-2) - (+3)mmol/L) 12/15/18 15:04 28 % 12/15/18 15:04 Sodium 138 mmol/L (137-145) 12/14/18 04:20 Potassium 4.1 mmol/L (3.6-5.0) 12/14/18 04:20 Chloride 103.1 mmol/L (98-107) 12/14/18 04:20 Carbon Dioxide 22 mmol/L (22-30) 12/14/18 04:20 17 mmol/L 12/14/18 04:20 BUN 15 mg/dL (7-17) 12/14/18 04:20 1.1 mg/dL (0.7-1.2) 12/14/18 04:20 Estimated GFR 58 ml/min 12/14/18 04:20 14 % 12/14/18 04:20 Glucose 95 mg/dL (65-100) 12/14/18 04:20 POC Glucose 95 (70-105) 12/16/18 06:14 Calcium 8.5 mg/dL (8.4-10.2) 12/14/18 04:20 Magnesium 1.80 mg/dL (1.7-2.3) 12/12/18 06:45 Iron 36 ug/dL (37-170) L 12/15/18 10:29 TIBC 251 mcg/dL (250-450) 12/15/18 10:29 79.9 ng/mL (13.0-400.0) 12/15/18 10:29 0.30 mg/dL (0.1-1.2) 12/11/18 21:30 AST 35 units/L (5-40) 12/11/18 21:30 ALT 12 units/L (7-56) 12/11/18 21:30 85 units/L (35-129) 12/11/18 21:30 978 units/L (30-135) H 12/12/18 06:45 CK-MB (CK-2) 9.4 ng/mL (0.0-4.0) H 12/12/18 06:45 CK-MB (CK-2) Rel Index 0.9 (0-4) 12/12/18 06:45 0.131 ng/mL (0.00-0.029) H* 12/12/18 06:45 7.5 g/dL (6.3-8.2) 12/11/18 21:30 3.4 g/dL (3.9-5) L 12/11/18 21:30 0.8 % 12/11/18 21:30 Triglycerides 123 mg/dL (2-149) 12/12/18 00:35 Cholesterol 88 mg/dL (50-199) 12/12/18 00:35 39 mg/dL (50-130) L 12/12/18 00:35 41 mg/dL (40-59) 12/12/18 00:35 2.14 % 12/12/18 00:35 Vitamin B12 702.1 pg/mL (211-911) 12/15/18 10:29 13.86 ng/mL (7.3-26.0) 12/15/18 10:35 TSH 7.660 mlU/mL (0.270-4.200) H 12/15/18 10:29 Free T4 0.81 ng/dL (0.76-1.46) 12/15/18 10:29 Yellow (Yellow) 12/11/18 23:31 Clear (Clear) 12/11/18 23:31 6.0 (5.0-7.0) 12/11/18 23:31 Ur Specific [place] 1.008 (1.003-1.030) 12/11/18 23:31 <15 mg/dl mg/dL (Negative) 12/11/18 23:31 Neg mg/dL (Negative) 12/11/18 23:31 Neg mg/dL (Negative) 12/11/18 23:31 Neg (Negative) 12/11/18 23:31 Neg (Negative) 12/11/18 23:31 Neg (Negative) 12/11/18 23:31 < 2.0 mg/dL (<2.0) 12/11/18 23:31 Ur Leukocyte Esterase Neg (Negative) 12/11/18 23:31 2.0 /HPF (0.0-6.0) 12/11/18 23:31 1.0 /HPF (0.0-6.0) 12/11/18 23:31 Hyaline Casts 1 /LPF 12/11/18 23:31 Presumptive negative 12/11/18 23:31 Presumptive negative 12/11/18 23:31 Ur Barbiturates Screen Presumptive negative 12/11/18 23:31 Ur Phencyclidine Scrn Presumptive negative 12/11/18 23:31 Ur Amphetamines Screen Presumptive negative 12/11/18 23:31 U Benzodiazepines Scrn Presumptive negative 12/11/18 23:31 Presumptive negative 12/11/18 23:31 U Marijuana (THC) Screen Presumptive negative 12/11/18 23:31 Disclamer 12/11/18 23:31 Active Medications - Current Medications Current Medications: Generic Name Dose Route Start Last Admin Trade Name Freq PRN Reason Stop Dose Admin Acetaminophen 650 mg 12/12/18 00:38 Tylenol PO Q4H PRN Pain MILD(1-3)/Fever >100.5/STAPLES Albuterol/Ipratropium 1 ampul 12/12/18 14:00 12/16/18 07:38 Duoneb *Not For Prn Use* IH 1 ampul Q6HRT KAVITHA Administration Atorvastatin Calcium 40 mg 12/16/18 22:00 Lipitor PO QHS PENDING SALE TO [facility] Carvedilol 6.25 mg 12/14/18 10:30 12/16/18 10:39 Coreg PO Not Given BID PENDING SALE TO [facility] Famotidine 20 mg 12/15/18 10:00 12/16/18 10:39 Pepcid PO Not Given DAILY PENDING SALE TO [facility] Furosemide 20 mg 12/13/18 13:00 12/16/18 10:39 Lasix PO Not Given QDAY PENDING SALE TO [facility] Hydralazine HCl 25 mg 12/16/18 14:00 Apresoline PO Q8HR PENDING SALE TO [facility] Hydrophilic Ointment 1 applic 12/11/18 21:59 Vaseline Lip Therapy TP Q2HR PRN Dry Lips Isosorbide Mononitrate 30 mg 12/16/18 12:00 Imdur PO QDAY PENDING SALE TO [facility] Lisinopril 5 mg 12/14/18 10:00 12/16/18 10:39 Zestril PO Not Given QDAY PENDING SALE TO [facility] Morphine Sulfate 2 mg 12/14/18 11:58 12/16/18 00:49 Morphine IV 2 mg Q4H PRN Administration Pain, Moderate (4-6) Multi-Ingred Cream/Lotion/Oil/Oint 1 applic 12/11/18 21:26 Artificial Tears Ophth Oint OU Q4HR PRN Dry Eye(s) Ondansetron HCl 4 mg 12/12/18 00:38 Zofran IV Q8H PRN Nausea And Vomiting Sodium Chloride 10 ml 12/12/18 10:00 12/16/18 10:39 Sodium Chloride Flush Syringe 10 Ml IV Not Given BID KAVITHA Sodium Chloride 10 ml 12/12/18 00:38 Sodium Chloride Flush Syringe 10 Ml IV PRN PRN LINE FLUSH Nutrition/Malnutrition Assess - Dietary Evaluation Nutrition/Malnutrition Findings: Nutrition Notes Start: 12/12/18 10:59 Freq: Status: Active Protocol: Document 12/14/18 15:07 RM (Rec: 12/14/18 15:11 RM [id number]) Nutrition Notes Initial or Follow up Reassessment Current Diagnosis COPD,Hypertension Other Pertinent Diagnosis Cardiac Arrest, AMI Current Diet Cardiac, GI soft Labs/Tests Reviewed Pertinent Medications Lasix Height 5 ft 6 in Weight 70 kg [place] Body Weight (kg) 59.09 BMI 24.9 Subjective/Other Information Pt extubated and moved to . Diet advanced to Cardiac. Nurse placing catheter at time of visit. Recorded PO intake 0% X 1 meal. Percent of energy/protein needs met: 0%/0% Burn Absent Trauma Absent #1 Nutrition Diagnosis Inadequate oral intake Diagnosis Progress(for reassessment Continues documentation) Is patient on ventilator? No Is Patient Ambulatory and/or Out of Bed No REE-([facility]-confined to bed) 1430.940 Calculation Used for Recommendations [facility] Additional Notes Protein needs: 70-91g (1-1.3g/ kg) Fluid needs are 1ml/kcal Nutrition Intervention Change Diet Order: Continue current Add Supplement/Snack (indicate name/kcal Ensure Enlive 1 daily /protein ) Provides kCal: 350 Provides Protein (gm) 20 Goal #1 Meet at least 75% of calorie and protein needs via PO and ONS intakes Anticipated Discharge Needs: Cardiac diet Follow-Up By: 12/16/18 Additional Comments Follow for PO and ONS intakes
[2018-12-16] MEDS: IMDUR PO SCH (13:52)
[2018-12-16] MEDS: APRESOLINE PO SCH ×2 (13:57→22:43)
--- NOTE | 2018-12-16 15:19 | Cardiac Catherization Report ---
LEFT HEART CATHETERIZATION WITH BYPASS GRAFTS CLINICAL INFORMATION: This is an 78-year-old female who is from [place], has a history of coronary artery disease, bypass had extensive cardiac arrest with multiple shocks with AICD that were not successful and had syncope and had a shock, cardioverted with EMS external defibrillator. Review of the records from the hospital in [place] reveals that she has EF of 25%, is on Eliquis, digoxin and carvedilol not on HILARY secondary to allergies. The patient has history of hyperlipidemia and had a non-ST elevation myocardial infarction type 2. The patient is here for left heart catheterization for a suspected ischemic coronary artery disease as a cause of recurrent VT. Procedure was done under moderate sedation. Total sedation time was 16 minutes, started at 9:25 a.m. finished 1:00 a.m., 25 mcg of fentanyl was given. Procedure was performed in the right femoral artery, sterile technique, local anesthesia, 5-Turkmen groin sheath inserted. Left system engaged JL4 catheter. Left main is a medium caliber vessel, diffusely diseased, distal becomes 100%. You see calcification of the LAD and circumflex. SVG to OM engaged with JR4 catheter, large caliber graft, with mild diffuse disease, feeding into a small caliber OM1 with multiple branches with retrograde fill into the [place] circ. SVG to diagonal is 100% engaged with JR4, SVG to PDA is 100% engaged with AR mod. RCA engaged with JR4 catheter, is a large caliber graft. Proximal is patent, mid stent widely patent, distal patent with medium caliber PDA and PLV covers the whole lateral wall with medium caliber RV branch that has extensive collateralization via the PDA via the septal into a diffusely diseased LAD with no appreciable targets. WOODSON was sub-selective in IM and it is atretic. LV gram done in ICELANDIC and LEAL view shows [id number] LV dysfunction, ejection fraction 25%. LVEDP of 30 mmHg, LV is 150 mmHg. Aortic is 149/75 mmHg. No gradient across the aortic valve on pullback. All catheters were exchanged over a guidewire, 5-Turkmen groin sheath discontinued. Manual pressure held. No hematoma, no bleeding. SUMMARY: Left main distal 100%. RCA mid stent patent with collateralization of right to left into a diffusely diseased LAD. SVG OM patent, WOODSON atretic, SVG to PDA 100%. SVG to diagonal 100%. Treat the patient medically. Discussed this with the family in detail. JOB# [id number] VARUN/HIRAM
[2018-12-16] MEDS: BUSPAR PO SCH (22:41)
[2018-12-16] MEDS: TYLENOL PO PRN (22:42)
[2018-12-17] MEDS: DUONEB *Not for PRN Use IH SCH ×2 (02:20→11:11)
[2018-12-17] MEDS: TYLENOL PO PRN ×2 (03:52→20:47)
[2018-12-17] MEDS: APRESOLINE PO SCH (05:51)
--- NOTE | 2018-12-17 07:12 | Progress Note ---
Assessment and Plan Acute hypoxemic respiratory failure, s/p mechanical ventilatory support, extubated Status post cardiac arrest, possible ventricular tachycardia with return of spontaneous circulation. History of cardiomyopathy Coronary artery disease, status post coronary artery bypass graft. Chronic obstructive pulmonary disease. Acute encephalopathy Hyperkalemia at presentation. Acute kidney injury. Elevated serum troponins. Oropharyngeal dysphagia Subjective Date of service: 12/17/18 Principal diagnosis: Ac hypoxemic resp failure; Cardiac arrest; KAYLEEN; Ac en cephalopathy; NSTEMI Interval history: Patient is seen today for: Ac hypoxemic resp failure; S/P cardiac arrest; H/O CMOP; CAD; COPD; Acute encephalopathy, possible anoxic element; Acute kidney injury; NSTEMI; Oropharyngeal dysphagia. Seen and examined at bedside; 24hour events reviewed; nursing and respiratory care staff consulted; no adverse overnight events reported to me; resting peacefully in bed, has some abdominal breathing, daughter is at the bedside, she states her mother just got some medication but apparently did not sleep much overnight; vitals, labs, medications, chart reviewed Objective Vital Signs - 12hr 12/16/18 12/16/18 12/16/18 19:27 19:40 19:47 Temperature Pulse Rate 89 Pulse Rate [ Apical] Pulse Rate [ 95 H Posterior Bilateral Throughout] Respiratory Rate Respiratory Rate [Chest] Respiratory 18 Rate [Posterior Bilateral Throughout] Blood Pressure Blood Pressure [Left] Blood Pressure [Right] O2 Sat by Pulse 97 Oximetry 12/16/18 12/16/18 12/16/18 20:14 20:18 20:35 Temperature 98.6 F Pulse Rate 89 Pulse Rate [ 95 H Apical] Pulse Rate [ Posterior Bilateral Throughout] Respiratory 18 18 Rate Respiratory Rate [Chest] Respiratory Rate [Posterior Bilateral Throughout] Blood Pressure 123/64 Blood Pressure [Left] Blood Pressure [Right] O2 Sat by Pulse 100 97 Oximetry 12/16/18 12/16/18 12/16/18 22:42 22:43 23:42 Temperature Pulse Rate 95 H Pulse Rate [ Apical] Pulse Rate [ Posterior Bilateral Throughout] Respiratory 18 18 Rate Respiratory Rate [Chest] Respiratory Rate [Posterior Bilateral Throughout] Blood Pressure 123/64 Blood Pressure [Left] Blood Pressure [Right] O2 Sat by Pulse Oximetry 12/17/18 12/17/18 12/17/18 00:46 00:47 03:52 Temperature 97.6 F Pulse Rate 92 H Pulse Rate [ Apical] Pulse Rate [ Posterior Bilateral Throughout] Respiratory 18 18 18 Rate Respiratory Rate [Chest] Respiratory Rate [Posterior Bilateral Throughout] Blood Pressure 103/54 Blood Pressure 103/54 [Left] Blood Pressure [Right] O2 Sat by Pulse 95 Oximetry 12/17/18 12/17/18 12/17/18 04:00 04:52 05:09 Temperature 97.8 F Pulse Rate 64 Pulse Rate [ Apical] Pulse Rate [ Posterior Bilateral Throughout] Respiratory 18 18 Rate Respiratory 18 Rate [Chest] Respiratory Rate [Posterior Bilateral Throughout] Blood Pressure 94/41 Blood Pressure [Left] Blood Pressure [Right] O2 Sat by Pulse 100 Oximetry 12/17/18 12/17/18 05:28 05:51 Temperature 97.8 F Pulse Rate 63 64 Pulse Rate [ Apical] Pulse Rate [ Posterior Bilateral Throughout] Respiratory 18 Rate Respiratory Rate [Chest] Respiratory Rate [Posterior Bilateral Throughout] Blood Pressure 94/41 Blood Pressure [Left] Blood Pressure 94/41 [Right] O2 Sat by Pulse 100 Oximetry Constitutional: no acute distress, other (elderly looking AAF, normocephalic and atraumatic with mildly increased resp effort at rest) Eyes: non-icteric ENT: oropharynx moist, other (ETT 24 cm VERONICA) Neck: supple, no lymphadenopathy, no JVD Effort: mildly labored Ascultation: Bilateral: clear, diminished breath sounds Percussion: Bilateral: not dull Cardiovascular: regular rate and rhythm, murmur noted (systyolic) Gastrointestinal: normoactive bowel sounds, soft, non-tender, non-distended Integumentary: normal Extremities: no cyanosis, no edema, pulses normal, no ischemia or petechiae Neurologic: normal mental status, non-focal exam (grossly), pupils equal and round, motor strength normal and Psychiatric: mood appropriate, affect normal CBC and BMP: 12/15/18 04:13 12/14/18 04:20 ABG, PT/INR, D-dimer: ABG POC ABG pH 7.387 (7.35-7.45) 12/15/18 15:04 POC ABG pCO2 41.7 (35-45) 12/15/18 15:04 POC ABG pO2 110 (80-105) H 12/15/18 15:04 POC ABG HCO3 25.1 (22-26 mml/L) 12/15/18 15:04 POC ABG Total CO2 26 (23-27mmol/L) 12/15/18 15:04 POC ABG O2 Sat 98 12/15/18 15:04 PT/INR, D-dimer PT 18.5 Sec. (12.2-14.9) H 12/11/18 21:30 INR 1.58 (0.87-1.13) H 12/11/18 21:30 3643.18 ng/mlDDU (0-234) H 12/11/18 21:30 Abnormal lab findings: Abnormal Labs 12/11/18 12/11/18 12/11/18 21:30 21:30 21:30 WBC RBC 3.44 L Hgb Hct RDW 17.9 H Plt Count [place] % (Auto) Eos % (Auto) [place] # Eos # Seg Neutrophils % Seg Neuts % (Manual) 35.0 L Lymphocytes % (Manual) 51.0 H Monocytes % (Manual) 8.0 H Eosinophils % (Manual) 5.0 H PT 18.5 H INR 1.58 H D-Dimer 3643.18 H POC ABG pH POC ABG pCO2 POC ABG pO2 Sodium 136 L Potassium 5.3 H Chloride 97.2 L Carbon Dioxide 20 L BUN 18 H Creatinine 1.4 H Glucose 137 H POC Glucose Calcium Iron Total Creatine Kinase CK-MB (CK-2) Troponin T Albumin 3.4 L LDL Cholesterol Direct TSH 12/11/18 12/12/18 12/12/18 22:35 00:35 02:30 WBC RBC 3.16 L Hgb 9.2 L Hct 27.9 L RDW 17.7 H Plt Count 127 L [place] % (Auto) Eos % (Auto) [place] # Eos # Seg Neutrophils % 75.7 H Seg Neuts % (Manual) Lymphocytes % (Manual) Monocytes % (Manual) Eosinophils % (Manual) PT INR D-Dimer POC ABG pH POC ABG pCO2 POC ABG pO2 344 H Sodium Potassium Chloride Carbon Dioxide BUN Creatinine Glucose POC Glucose Calcium Iron Total Creatine Kinase CK-MB (CK-2) Troponin T 0.106 H* D Albumin LDL Cholesterol Direct 39 L TSH 12/12/18 12/12/18 12/12/18 02:30 02:30 03:50 WBC RBC Hgb Hct RDW Plt Count [place] % (Auto) Eos % (Auto) [place] # Eos # Seg Neutrophils % Seg Neuts % (Manual) Lymphocytes % (Manual) Monocytes % (Manual) Eosinophils % (Manual) PT INR D-Dimer POC ABG pH 7.494 H POC ABG pCO2 POC ABG pO2 220 H Sodium Potassium Chloride Carbon Dioxide 18 L BUN 23 H Creatinine 1.4 H Glucose 189 H POC Glucose Calcium 7.5 L Iron Total Creatine Kinase 431 H CK-MB (CK-2) 6.9 H Troponin T 0.146 H* D Albumin LDL Cholesterol Direct TSH 12/12/18 12/12/18 12/13/18 06:45 17:37 04:15 WBC RBC 2.84 L Hgb 8.2 L Hct 25.2 L RDW 17.9 H Plt Count 116 L [place] % (Auto) 8.3 H Eos % (Auto) [place] # 0.9 H Eos # Seg Neutrophils % Seg Neuts % (Manual) Lymphocytes % (Manual) Monocytes % (Manual) Eosinophils % (Manual) PT INR D-Dimer POC ABG pH POC ABG pCO2 32.4 L POC ABG pO2 Sodium Potassium Chloride Carbon Dioxide BUN Creatinine Glucose POC Glucose Calcium Iron Total Creatine Kinase 978 H CK-MB (CK-2) 9.4 H Troponin T 0.131 H* Albumin LDL Cholesterol Direct TSH 12/13/18 12/14/18 12/15/18 04:15 04:20 04:13 WBC 12.4 H RBC 2.92 L 2.92 L Hgb 8.5 L 8.7 L Hct 26.2 L 26.0 L RDW 17.9 H 17.7 H Plt Count 113 L 119 L [place] % (Auto) 7.4 H Eos % (Auto) 6.6 H [place] # Eos # 0.6 H Seg Neutrophils % Seg Neuts % (Manual) Lymphocytes % (Manual) Monocytes % (Manual) Eosinophils % (Manual) PT INR D-Dimer POC ABG pH POC ABG pCO2 POC ABG pO2 Sodium Potassium Chloride 108.3 H Carbon Dioxide 20 L BUN 21 H Creatinine 1.3 H Glucose 109 H POC Glucose Calcium 7.9 L Iron Total Creatine Kinase CK-MB (CK-2) Troponin T Albumin LDL Cholesterol Direct TSH 12/15/18 12/15/18 12/15/18 10:29 10:29 12:22 WBC RBC Hgb Hct RDW Plt Count [place] % (Auto) Eos % (Auto) [place] # Eos # Seg Neutrophils % Seg Neuts % (Manual) Lymphocytes % (Manual) Monocytes % (Manual) Eosinophils % (Manual) PT INR D-Dimer POC ABG pH POC ABG pCO2 POC ABG pO2 Sodium Potassium Chloride Carbon Dioxide BUN Creatinine Glucose POC Glucose 154 H Calcium Iron 36 L Total Creatine Kinase CK-MB (CK-2) Troponin T Albumin LDL Cholesterol Direct TSH 7.660 H 12/15/18 15:04 WBC RBC Hgb Hct RDW Plt Count [place] % (Auto) Eos % (Auto) [place] # Eos # Seg Neutrophils % Seg Neuts % (Manual) Lymphocytes % (Manual) Monocytes % (Manual) Eosinophils % (Manual) PT INR D-Dimer POC ABG pH POC ABG pCO2 POC ABG pO2 110 H Sodium Potassium Chloride Carbon Dioxide BUN Creatinine Glucose POC Glucose Calcium Iron Total Creatine Kinase CK-MB (CK-2) Troponin T Albumin LDL Cholesterol Direct TSH Allied health notes reviewed: nursing
[2018-12-17] MEDS: SYNTHROID PO SCH (07:17)
--- NOTE | 2018-12-17 08:42 | XRay Report ---
CHEST 1 VIEW INDICATION / CLINICAL INFORMATION: respiratory failure, aspiration risk. COMPARISON: 12/14/2018 FINDINGS: SUPPORT DEVICES: ICD remains in place on the left. HEART / MEDIASTINUM: Moderate cardiomegaly is seen with evidence of median sternotomy. LUNGS / PLEURA: No significant pulmonary or pleural abnormality. No pneumothorax. ADDITIONAL FINDINGS: No significant additional findings. IMPRESSION: 1. No significant change. Signer Name: Torsten Stephenson MD Signed: 12/17/2018 8:38 AM Workstation Name: [id number]
[2018-12-17] MEDS ORDERED: NORTRIPTYLINE HCL 75 MG PO SCH (10:00)
[2018-12-17 10:06] LABS: Basophils % (Auto) 0.5 % (0.0-1.8); Eosinophils # (Auto) 0.8 K/mm3 (0.0-0.4); Eosinophils % (Auto) 11.4 % (0.0-4.3); Hematocrit 26.4 % (30.3-42.9); Hemoglobin 8.9 gm/dl (10.1-14.3); Lymphocytes # (Auto) 2.6 K/mm3 (1.2-5.4); Lymphocytes % (Auto) 36.7 % (13.4-35.0); Mean Corpuscular HGB Conc 34 % (30-34); Mean Corpuscular Volume 89 fl (79-97); Monocytes # (Auto) 0.8 K/mm3 (0.0-0.8); Monocytes % (Auto) 10.9 % (0.0-7.3); Platelet Count 148 K/mm3 (140-440); Red Blood Count 2.98 M/mm3 (3.65-5.03); Red Cell Distribution Width 17.6 % (13.2-15.2)
[2018-12-17 10:26] LABS: BUN/Creatinine Ratio 9; Blood Urea Nitrogen 7 mg/dL (7-17); Calcium 8.8 mg/dL (8.4-10.2); Hemolysis Index 11
[2018-12-17] MEDS: PAMELOR PO SCH (11:10)
[2018-12-17] MEDS: BUSPAR PO SCH ×2 (11:11→21:43)
[2018-12-17] MEDS: BABY ASPIRIN PO SCH (11:11)
[2018-12-17] MEDS: LEXAPRO PO SCH (11:11)
[2018-12-17] MEDS: ARICEPT PO SCH (11:11)
[2018-12-17] MEDS: PEPCID PO SCH (11:11)
[2018-12-17] MEDS: PLAVIX PO SCH (11:11)
[2018-12-17] MEDS: COREG PO SCH ×2 (11:12→21:43)
[2018-12-17] MEDS: SODIUM CHLORIDE FLUSH SYRINGE 10 ML IV SCH ×2 (11:12→21:53)
[2018-12-17] MEDS: LASIX PO SCH (11:12)
[2018-12-17] MEDS: IMDUR PO SCH (11:12)
--- NOTE | 2018-12-17 11:59 | Progress Note ---
Assessment and Plan With relatively low BPs this am, will DC hydralazine and hold lasix. Will observe overnight. If stable on Coreg, may DC tomorrow from cardiac standpoint. - Patient Problems (1) Cardiac arrest Current Visit: Yes Status: Acute (2) Ventricular fibrillation Current Visit: Yes Status: Acute (3) Ventricular tachycardia Current Visit: Yes Status: Acute (4) ICD (implantable cardioverter-defibrillator) discharge Current Visit: Yes Status: Acute (5) Acute respiratory failure Current Visit: Yes Status: Acute (6) Elevated troponin level Current Visit: Yes Status: Acute (7) Thrombocytopenia Current Visit: Yes Status: Acute (8) Moderate to severe pulmonary hypertension Current Visit: Yes Status: Acute (9) CAD (coronary artery disease) Current Visit: Yes Status: Chronic Qualifiers: Coronary Disease-Associated Artery/Lesion type: [place] artery (10) Ischemic cardiomyopathy Current Visit: Yes Status: Acute (11) Right ventricular dysfunction Current Visit: Yes Status: Acute (12) Hx of CABG Current Visit: Yes Status: Chronic (13) COPD (chronic obstructive pulmonary disease) Current Visit: Yes Status: Chronic (14) Hypothyroidism Current Visit: Yes Status: Chronic Subjective Date of service: 12/17/18 Principal diagnosis: Ac hypoxemic resp failure; Cardiac arrest; KAYLEEN; Ac encephalopathy; NSTEMI Interval history: No complaint. Objective Vital Signs Temp Pulse Pulse Pulse Pulse Resp Resp 12/17/18 11:15 72 72 18 12/17/18 11:12 90 12/17/18 11:09 12/17/18 10:34 98.3 F 90 16 12/17/18 10:00 64 12/17/18 05:51 64 12/17/18 05:28 97.8 F 63 18 12/17/18 05:09 97.8 F 64 18 12/17/18 04:52 18 12/17/18 04:00 12/17/18 03:52 18 12/17/18 00:47 97.6 F 92 H 18 12/17/18 00:46 18 12/16/18 23:42 18 12/16/18 22:43 95 H 12/16/18 22:42 18 12/16/18 20:35 95 H 18 12/16/18 20:18 98.6 F 12/16/18 20:14 89 18 12/16/18 19:47 89 12/16/18 19:40 95 H 12/16/18 19:27 12/16/18 17:00 85 12/16/18 16:01 12/16/18 16:00 98.1 F 86 19 12/16/18 15:30 98 F 78 12/16/18 15:15 98.2 F 81 19 12/16/18 15:14 12/16/18 14:30 97.8 F 82 18 12/16/18 14:15 98.2 F 79 19 12/16/18 13:57 77 12/16/18 13:52 77 12/16/18 13:45 97.8 F 71 19 12/16/18 13:42 86 12/16/18 13:30 98.1 F 70 19 12/16/18 13:24 12/16/18 13:15 98.2 F 75 18 12/16/18 13:00 83 16 12/16/18 12:45 86 16 12/16/18 12:30 83 15 12/16/18 12:15 83 16 Resp Resp BP BP BP Pulse Ox 12/17/18 11:15 18 12/17/18 11:12 103/59 12/17/18 11:09 97 12/17/18 10:34 103/59 98 12/17/18 10:00 12/17/18 05:51 94/41 12/17/18 05:28 94/41 100 12/17/18 05:09 94/41 100 12/17/18 04:52 12/17/18 04:00 18 12/17/18 03:52 12/17/18 00:47 103/54 95 12/17/18 00:46 103/54 12/16/18 23:42 12/16/18 22:43 123/64 12/16/18 22:42 12/16/18 20:35 97 12/16/18 20:18 12/16/18 20:14 123/64 100 12/16/18 19:47 12/16/18 19:40 18 12/16/18 19:27 97 12/16/18 17:00 12/16/18 16:01 124/72 12/16/18 16:00 123/72 12/16/18 15:30 119/71 12/16/18 15:15 130/67 12/16/18 15:14 130/67 12/16/18 14:30 138/61 12/16/18 14:15 124/70 12/16/18 13:57 132/62 12/16/18 13:52 132/62 12/16/18 13:45 137/68 12/16/18 13:42 20 12/16/18 13:30 142/71 12/16/18 13:24 142/71 26 L 12/16/18 13:15 142/83 12/16/18 13:00 142/75 100 12/16/18 12:45 142/75 100 12/16/18 12:30 145/78 100 12/16/18 12:15 136/87 100 - Physical Examination General: No Apparent Distress HEENT: Positive: EOMI, Normocephaly, Mucus Membranes Moist Neck: Positive: neck supple, trachea midline Cardiac: Positive: Reg Rate and Rhythm Lungs: Positive: Normal Exam Neuro: Positive: Grossly Intact Abdomen: Positive: Soft, Active Bowel Sounds. Negative: Tender Skin: Positive: Clear. Negative: Rash Musculoskeletal: Normal Range of Motion Extremities: Present: normal. Absent: edema - Labs and Meds CBC 12/17/18 Range/Units 09:27 WBC 7.2 (4.5-11.0) K/mm3 RBC 2.98 L (3.65-5.03) M/mm3 Hgb 8.9 L (10.1-14.3) gm/dl Hct 26.4 L (30.3-42.9) % Plt Count 148 (140-440) K/mm3 Lymph # 2.6 (1.2-5.4) K/mm3 [place] # 0.8 (0.0-0.8) K/mm3 Eos # 0.8 H (0.0-0.4) K/mm3 Baso # 0.0 (0.0-0.1) K/mm3 Comprehensive Metabolic Panel 12/17/18 Range/Units 09:27 Sodium 140 (137-145) mmol/L Potassium 3.1 L D (3.6-5.0) mmol/L Chloride 100.5 (98-107) mmol/L Carbon Dioxide 27 (22-30) mmol/L BUN 7 (7-17) mg/dL Creatinine 0.8 (0.7-1.2) mg/dL Glucose 130 H (65-100) mg/dL Calcium 8.8 (8.4-10.2) mg/dL - Imaging and Cardiology EKG: image reviewed Echo: image reviewed Cardiac cath: report reviewed (lt main distal 100%, hubbard is atretic and svg to om1 patent, rca mid stent patent ef 25-30% right to left collaterals to diffuse lad not amenable to revascularization, and svg to pda 100% and svg to diagona 1 100%) - Telemetry EKG Rhythm: Sinus Rhythm - EKG Sinus rhythms and dysrhythmias: sinus rhythm AV and intraventricular conduction: right bundle branch block, left anterior fascicular - Allied health notes Allied health notes reviewed: nursing
--- NOTE | 2018-12-17 13:51 | Progress Note ---
Assessment and Plan Assessment and plan: Ventricular tachycardia/fibrillation. Continue intravenous amiodarone drip. She may require ischemic evaluation subsequently after adequate stabilization. Cardiology following. cardiac cath done . Medical management recommended. Cardiogenic shock, resolved, off pressors. Acute hypoxic respiratory failure was intubated, extubated 12/13. Pulmonary following. Anemia. Hgb 8.9 Dementia. resume namenda Thrombocytopenia. Follow CBC. s/p cardiac arrest. Assessment neurological function off sedation. CAD. History of CABG. COPD. Continue bronchodilators. Hypothyroidism. Continue Synthroid. KAYLEEN due to vasomotor nephropathy, Resolved Poss dc home tomorrow History Interval history: s/p cardiac arrest no chest pain Gen weakness Hospitalist Physical - Physical exam Narrative exam: Gen: Not in acute distress, lying in bed, HEENT: Normocephalic, atraumatic Neck: supple, no JVD Heart: S1 and S2 reg, no murmurs, rubs or gallop Lungs: Clear, no crackles or wheeze Abd: soft, non tender, non distended, normal BS Ext:no edema, no clubbing, no cyanosis Neuro: Awake,alert,oriented,moves all ext - Constitutional Vitals: Temp Pulse Resp BP Pulse Ox 98.3 F 72 18 103/59 97 12/17/18 10:34 12/17/18 11:15 12/17/18 11:15 12/17/18 11:12 12/17/18 11:09 General appearance: Present: no acute distress, other (unresponsive, orally intubated on mechanical ventilation) Results - Labs CBC & Chem 7: 12/17/18 09:27 12/17/18 09:27 Labs: Laboratory Last Values WBC 7.2 K/mm3 (4.5-11.0) 12/17/18 09:27 RBC 2.98 M/mm3 (3.65-5.03) L 12/17/18 09:27 Hgb 8.9 gm/dl (10.1-14.3) L 12/17/18 09:27 Hct 26.4 % (30.3-42.9) L 12/17/18 09:27 MCV 89 fl (79-97) 12/17/18 09:27 MCH 30 pg (28-32) 12/17/18 09:27 MCHC 34 % (30-34) 12/17/18 09:27 RDW 17.6 % (13.2-15.2) H 12/17/18 09:27 Plt Count 148 K/mm3 (140-440) 12/17/18 09:27 Lymph % (Auto) 36.7 % (13.4-35.0) H 12/17/18 09:27 [place] % (Auto) 10.9 % (0.0-7.3) H 12/17/18 09:27 Eos % (Auto) 11.4 % (0.0-4.3) H 12/17/18 09:27 Baso % (Auto) 0.5 % (0.0-1.8) 12/17/18 09:27 Lymph # 2.6 K/mm3 (1.2-5.4) 12/17/18 09:27 [place] # 0.8 K/mm3 (0.0-0.8) 12/17/18 09:27 Eos # 0.8 K/mm3 (0.0-0.4) H 12/17/18 09:27 Baso # 0.0 K/mm3 (0.0-0.1) 12/17/18 09:27 Add Manual Diff Complete 12/11/18 21:30 Total Counted 100 12/11/18 21:30 Seg Neutrophils % 40.5 % (40.0-70.0) 12/17/18 09:27 Seg Neuts % (Manual) 35.0 % (40.0-70.0) L 12/11/18 21:30 0 % 12/11/18 21:30 51.0 % (13.4-35.0) H 12/11/18 21:30 Reactive Lymphs % (Man) 0 % 12/11/18 21:30 8.0 % (0.0-7.3) H 12/11/18 21:30 5.0 % (0.0-4.3) H 12/11/18 21:30 1.0 % (0.0-1.8) 12/11/18 21:30 0 % 12/11/18 21:30 0 % 12/11/18 21:30 0 % 12/11/18 21:30 0 % 12/11/18 21:30 Nucleated RBC % Not Reportable 12/11/18 21:30 Seg Neutrophils # 2.9 K/mm3 (1.8-7.7) 12/17/18 09:27 Seg Neutrophils # Man 2.7 K/mm3 (1.8-7.7) 12/11/18 21:30 Band Neutrophils # 0.0 K/mm3 12/11/18 21:30 3.9 K/mm3 (1.2-5.4) 12/11/18 21:30 Abs React Lymphs (Man) 0.0 K/mm3 12/11/18 21:30 0.6 K/mm3 (0.0-0.8) 12/11/18 21:30 0.4 K/mm3 (0.0-0.4) 12/11/18 21:30 0.1 K/mm3 (0.0-0.1) 12/11/18 21:30 0.0 K/mm3 12/11/18 21:30 0.0 K/mm3 12/11/18 21:30 0.0 K/mm3 12/11/18 21:30 Blast Cells # 0.0 K/mm3 12/11/18 21:30 WBC Morphology Not Reportable 12/11/18 21:30 Hypersegmented Neuts Not Reportable 12/11/18 21:30 Hyposegmented Neuts Not Reportable 12/11/18 21:30 Hypogranular Neuts Not Reportable 12/11/18 21:30 Not Reportable 12/11/18 21:30 Not Reportable 12/11/18 21:30 Not Reportable 12/11/18 21:30 Not Reportable 12/11/18 21:30 Not Reportable 12/11/18 21:30 Not Reportable 12/11/18 21:30 Consistent w auto 12/11/18 21:30 Not Reportable 12/11/18 21:30 Plt Clumps, EDTA Not Reportable 12/11/18 21:30 Few 12/11/18 21:30 Not Reportable 12/11/18 21:30 Not Reportable 12/11/18 21:30 Plt Morphology Comment Not Reportable 12/11/18 21:30 RBC Morphology Not Reportable 12/11/18 21:30 Dimorphic RBCs Not Reportable 12/11/18 21:30 Not Reportable 12/11/18 21:30 Not Reportable 12/11/18 21:30 Not Reportable 12/11/18 21:30 1+ 12/11/18 21:30 Not Reportable 12/11/18 21:30 Not Reportable 12/11/18 21:30 Not Reportable 12/11/18 21:30 Not Reportable 12/11/18 21:30 Not Reportable 12/11/18 21:30 Not Reportable 12/11/18 21:30 Not Reportable 12/11/18 21:30 Few 12/11/18 21:30 Not Reportable 12/11/18 21:30 Not Reportable 12/11/18 21:30 Not Reportable 12/11/18 21:30 Not Reportable 12/11/18 21:30 Not Reportable 12/11/18 21:30 Not Reportable 12/11/18 21:30 Not Reportable 12/11/18 21:30 Acanthocytes (Spur) Not Reportable 12/11/18 21:30 Rouleaux Not Reportable 12/11/18 21:30 Not Reportable 12/11/18 21:30 Not Reportable 12/11/18 21:30 Not Reportable 12/11/18 21:30 Not Reportable 12/11/18 21:30 Hem Pathologist Commnt No 12/11/18 21:30 PT 18.5 Sec. (12.2-14.9) H 12/11/18 21:30 INR 1.58 (0.87-1.13) H 12/11/18 21:30 APTT 31.5 Sec. (24.2-36.6) 12/11/18 21:30 3643.18 ng/mlDDU (0-234) H 12/11/18 21:30 POC ABG pH 7.387 (7.35-7.45) 12/15/18 15:04 POC ABG pCO2 41.7 (35-45) 12/15/18 15:04 POC ABG pO2 110 (80-105) H 12/15/18 15:04 POC ABG HCO3 25.1 (22-26 mml/L) 12/15/18 15:04 POC ABG Total CO2 26 (23-27mmol/L) 12/15/18 15:04 POC ABG O2 Sat 98 12/15/18 15:04 POC ABG Base Excess 0 ((-2) - (+3)mmol/L) 12/15/18 15:04 28 % 12/15/18 15:04 Sodium 140 mmol/L (137-145) 12/17/18 09:27 Potassium 3.1 mmol/L (3.6-5.0) L D 12/17/18 09:27 Chloride 100.5 mmol/L (98-107) 12/17/18 09:27 Carbon Dioxide 27 mmol/L (22-30) 12/17/18 09:27 16 mmol/L 12/17/18 09:27 BUN 7 mg/dL (7-17) 12/17/18 09:27 0.8 mg/dL (0.7-1.2) 12/17/18 09:27 Estimated GFR > 60 ml/min 12/17/18 09:27 9 % 12/17/18 09:27 Glucose 130 mg/dL (65-100) H 12/17/18 09:27 POC Glucose 95 (70-105) 12/16/18 06:14 Calcium 8.8 mg/dL (8.4-10.2) 12/17/18 09:27 Magnesium 1.80 mg/dL (1.7-2.3) 12/12/18 06:45 Iron 36 ug/dL (37-170) L 12/15/18 10:29 TIBC 251 mcg/dL (250-450) 12/15/18 10:29 79.9 ng/mL (13.0-400.0) 12/15/18 10:29 0.30 mg/dL (0.1-1.2) 12/11/18 21:30 AST 35 units/L (5-40) 12/11/18 21:30 ALT 12 units/L (7-56) 12/11/18 21:30 85 units/L (35-129) 12/11/18 21:30 978 units/L (30-135) H 12/12/18 06:45 CK-MB (CK-2) 9.4 ng/mL (0.0-4.0) H 12/12/18 06:45 CK-MB (CK-2) Rel Index 0.9 (0-4) 12/12/18 06:45 0.131 ng/mL (0.00-0.029) H* 12/12/18 06:45 7.5 g/dL (6.3-8.2) 12/11/18 21:30 3.4 g/dL (3.9-5) L 12/11/18 21:30 0.8 % 12/11/18 21:30 Triglycerides 123 mg/dL (2-149) 12/12/18 00:35 Cholesterol 88 mg/dL (50-199) 12/12/18 00:35 39 mg/dL (50-130) L 12/12/18 00:35 41 mg/dL (40-59) 12/12/18 00:35 2.14 % 12/12/18 00:35 Vitamin B12 702.1 pg/mL (211-911) 12/15/18 10:29 13.86 ng/mL (7.3-26.0) 12/15/18 10:35 TSH 7.660 mlU/mL (0.270-4.200) H 12/15/18 10:29 Free T4 0.81 ng/dL (0.76-1.46) 12/15/18 10:29 Yellow (Yellow) 12/11/18 23:31 Clear (Clear) 12/11/18 23:31 6.0 (5.0-7.0) 12/11/18 23:31 Ur Specific [place] 1.008 (1.003-1.030) 12/11/18 23:31 <15 mg/dl mg/dL (Negative) 12/11/18 23:31 Neg mg/dL (Negative) 12/11/18 23:31 Neg mg/dL (Negative) 12/11/18 23:31 Neg (Negative) 12/11/18 23:31 Neg (Negative) 12/11/18 23:31 Neg (Negative) 12/11/18 23:31 < 2.0 mg/dL (<2.0) 12/11/18 23:31 Ur Leukocyte Esterase Neg (Negative) 12/11/18 23:31 2.0 /HPF (0.0-6.0) 12/11/18 23:31 1.0 /HPF (0.0-6.0) 12/11/18 23:31 Hyaline Casts 1 /LPF 12/11/18 23:31 Presumptive negative 12/11/18 23:31 Presumptive negative 12/11/18 23:31 Ur Barbiturates Screen Presumptive negative 12/11/18 23:31 Ur Phencyclidine Scrn Presumptive negative 12/11/18 23:31 Ur Amphetamines Screen Presumptive negative 12/11/18 23:31 U Benzodiazepines Scrn Presumptive negative 12/11/18 23:31 Presumptive negative 12/11/18 23:31 U Marijuana (THC) Screen Presumptive negative 12/11/18 23:31 Disclamer 12/11/18 23:31 Active Medications - Current Medications Current Medications: Generic Name Dose Route Start Last Admin Trade Name Freq PRN Reason Stop Dose Admin Acetaminophen 650 mg 12/12/18 00:38 12/17/18 03:52 Tylenol PO 650 mg Q4H PRN Administration Pain MILD(1-3)/Fever >100.5/STAPLES Albuterol 2.5 mg 12/16/18 21:01 Proventil IH Q4HRT PRN Shortness Of Breath Aspirin 81 mg 12/17/18 10:00 12/17/18 11:11 Baby Aspirin PO 81 mg QDAY KAVITHA Administration Atorvastatin Calcium 40 mg 12/16/18 22:00 12/16/18 22:42 Lipitor PO 40 mg QHS KAVITHA Administration Buspirone HCl 10 mg 12/16/18 22:00 12/17/18 11:11 Buspar PO 10 mg BID KAVITHA Administration Carvedilol 6.25 mg 12/14/18 10:30 12/17/18 11:12 Coreg PO Not Given BID [facility] Clopidogrel Bisulfate 75 mg 12/17/18 10:00 12/17/18 11:11 Plavix PO 75 mg QDAY KAVITHA Administration Donepezil HCl 5 mg 12/17/18 10:00 12/17/18 11:11 Aricept PO 5 mg QDAY KAVITHA Administration Escitalopram Oxalate 20 mg 12/17/18 10:00 12/17/18 11:11 Lexapro PO 20 mg DAILY KAVITHA Administration Famotidine 20 mg 12/15/18 10:00 12/17/18 11:11 Pepcid PO 20 mg DAILY KAVITHA Administration Hydrophilic Ointment 1 applic 12/11/18 21:59 Vaseline Lip Therapy TP Q2HR PRN Dry Lips Isosorbide Mononitrate 30 mg 12/16/18 12:00 12/17/18 11:12 Imdur PO Not Given QDAY KAVITHA Levothyroxine Sodium 50 mcg 12/17/18 06:00 12/17/18 07:17 Synthroid PO 50 mcg QAM@0600 KAVITHA Administration Morphine Sulfate 2 mg 12/14/18 11:58 12/16/18 00:49 Morphine IV 2 mg Q4H PRN Administration Pain, Moderate (4-6) Multi-Ingred Cream/Lotion/Oil/Oint 1 applic 12/11/18 21:26 Artificial Tears Ophth Oint OU Q4HR PRN Dry Eye(s) Nortriptyline HCl 75 mg 12/17/18 10:00 12/17/18 11:10 Pamelor PO 75 mg DAILY KAVITHA Administration Ondansetron HCl 4 mg 12/12/18 00:38 Zofran IV Q8H PRN Nausea And Vomiting Potassium Chloride 40 meq 12/17/18 13:00 K-Dur PO 12/17/18 17:01 Q2H KAVITHA Sodium Chloride 10 ml 12/12/18 10:00 12/17/18 11:12 Sodium Chloride Flush Syringe 10 Ml IV 10 ml BID KAVITHA Administration Sodium Chloride 10 ml 12/12/18 00:38 Sodium Chloride Flush Syringe 10 Ml IV PRN PRN LINE FLUSH Nutrition/Malnutrition Assess - Dietary Evaluation Nutrition/Malnutrition Findings: Nutrition Notes Start: 12/12/18 10:59 Freq: Status: Active Protocol: Document 12/17/18 10:18 LP (Rec: 12/17/18 10:27 LP [id number]) Nutrition Notes Need for Assessment generated from: MD Order Current Diagnosis COPD,Hypertension Other Pertinent Diagnosis Cardiac Arrest, AMI Current Diet Cardiac, GI soft Labs/Tests Reviewed Pertinent Medications Reviewed Height 5 ft 6 in Weight 63.6 kg [place] Body Weight (kg) 59.09 BMI 22.6 Subjective/Other Information Consult for poor intakes. Pt ate very little oatmeal this morning and toast. Pt states she would like fruit and does not like supplements. Burn Absent Trauma Absent #1 Nutrition Diagnosis Inadequate oral intake Diagnosis Progress(for reassessment Continues documentation) Is patient on ventilator? No Is Patient Ambulatory and/or Out of Bed No REE-([facility]-confined to bed) 1354.212 Calculation Used for Recommendations [facility] Additional Notes Protein needs: 64-76g (1-1.2g/ kg) Fluid needs are 1ml/kcal Nutrition Intervention Change Diet Order: Continue current Add Supplement/Snack (indicate name/kcal Change to Ensure clear apple /protein ) BID Provides kCal: 480 Provides Protein (gm) 16 Goal #1 Meet at least 75% of calorie and protein needs via PO and ONS intakes Anticipated Discharge Needs: Cardiac diet with ONS as needed Follow-Up By: 12/20/18 Additional Comments Follow for intakes and ONS tolerance
[2018-12-17] MEDS: K-DUR PO SCH ×3 (14:37→18:09)
[2018-12-17] MEDS ORDERED: NITROSTAT SL PRN (16:41)
[2018-12-17] MEDS: SINGULAIR PO SCH (18:09)
[2018-12-17] MEDS: PROAMATINE PO SCH ×2 (18:09→21:44)
[2018-12-17] MEDS: CEPHULAC PO SCH ×2 (18:09→20:47)
[2018-12-17] MEDS: FLONASE NS SCH (18:10)
[2018-12-17 21:32] LABS: Bilirubin,Urine NEG (Negative); Blood,Urine NEG (Negative); Color,Urine Yellow (Yellow); Mucus,Urine FEW /HPF; Protein,Urine <15 mg/dL mg/dL (Negative)
[2018-12-17] MEDS: NAMENDA PO SCH (21:44)
[2018-12-18] MEDS: SYNTHROID PO SCH (06:27)
[2018-12-18] MEDS ORDERED: LEVAQUIN 500MG/100ML 500 MG/100 ML BAG IV SCH (08:00)
[2018-12-18 10:32] LABS: BUN/Creatinine Ratio 8; Blood Urea Nitrogen 6 mg/dL (7-17); Calcium 8.9 mg/dL (8.4-10.2); Hemolysis Index 12
--- NOTE | 2018-12-18 10:46 | Progress Note ---
Assessment and Plan Assessment and plan: Patient is 78 -year-old woman with a history of coronary artery disease, hypertension, hypothyroidism, COPD was brought to the emergency room for evaluation. She is visiting from [place]. She presented with syncope. EMS was called, she was found to be in V. tach and shocked 5 times, given amiodarone and was intubated here in the emergency room. patient became hypotensive when propofol drip was started, started on levophed drip. She was admitted to ICU. She improved, was extubated, came off pressors, transferred to Telemetry. cardiac cath done 12/16 and medical management recommended. She has been stabilised awaiting re-eval by PT . She needs PT re-evaluation prior to dc hopefully in few days. s/p cardiac arrest Ventricular tachycardia/fibrillation. cardiac cath done 12/16/18. Medical management recommended. Cardiogenic shock, resolved, off pressors. Acute on chronic hypoxic respiratory failure was intubated, extubated 12/13. Pulmonary following. Patient was on home Oxygen 2l/min Anemia. Dementia. On namenda,Aricept Thrombocytopenia. Follow CBC. CAD. History of CABG. COPD. Continue bronchodilators. Hypothyroidism. Continue Synthroid. KAYLEEN due to vasomotor nephropathy, Resolved History Interval history: s/p cardiac arrest no chest pain Hospitalist Physical - Physical exam Narrative exam: Gen: Not in acute distress, lying in bed, HEENT: Normocephalic, atraumatic Neck: supple, no JVD Heart: S1 and S2 reg, no murmurs, rubs or gallop Lungs: Clear, no crackles or wheeze Abd: soft, non tender, non distended, normal BS Ext:no edema, no clubbing, no cyanosis Neuro: Awake,alert,oriented,moves all ext - Constitutional Vitals: Temp Pulse Resp BP Pulse Ox 98.0 F 81 18 128/70 95 12/18/18 04:22 12/18/18 04:22 12/18/18 04:22 12/18/18 04:22 12/18/18 04:22 General appearance: Present: no acute distress, other (unresponsive, orally intubated on mechanical ventilation) Results - Labs CBC & Chem 7: 12/20/18 04:52 12/20/18 04:52 Labs: Laboratory Last Values WBC 7.2 K/mm3 (4.5-11.0) 12/17/18 09: RBC 2.98 M/mm3 (3.65-5.03) L 12/17/18 09:27 Hgb 8.9 gm/dl (10.1-14.3) L 12/17/18 09:27 Hct 26.4 % (30.3-42.9) L 12/17/18 09: MCV 89 fl (79-97) 12/17/18 09: MCH 30 pg (28-32) 12/17/18 09: MCHC 34 % (30-34) 12/17/18 09: RDW 17.6 % (13.2-15.2) H 12/17/18 09: Plt Count 148 K/mm3 (140-440) 12/17/18 09:27 Lymph % (Auto) 36.7 % (13.4-35.0) H 12/17/18 09:27 [place] % (Auto) 10.9 % (0.0-7.3) H 12/17/18 09:27 Eos % (Auto) 11.4 % (0.0-4.3) H 12/17/18 09:27 Baso % (Auto) 0.5 % (0.0-1.8) 12/17/18 09: Lymph # 2.6 K/mm3 (1.2-5.4) 12/17/18 09:27 [place] # 0.8 K/mm3 (0.0-0.8) 12/17/18 09: Eos # 0.8 K/mm3 (0.0-0.4) H 12/17/18 09:27 Baso # 0.0 K/mm3 (0.0-0.1) 12/17/18 09:27 Add Manual Diff Complete 12/11/18 21:30 Total Counted 100 12/11/18 21:30 Seg Neutrophils % 40.5 % (40.0-70.0) 12/17/18 09:27 Seg Neuts % (Manual) 35.0 % (40.0-70.0) L 12/11/18 21:30 0 % 12/11/18 21:30 51.0 % (13.4-35.0) H 12/11/18 21:30 Reactive Lymphs % (Man) 0 % 12/11/18 21:30 8.0 % (0.0-7.3) H 12/11/18 21:30 5.0 % (0.0-4.3) H 12/11/18 21:30 1.0 % (0.0-1.8) 12/11/18 21:30 0 % 12/11/18 21:30 0 % 12/11/18 21:30 0 % 12/11/18 21:30 0 % 12/11/18 21:30 Nucleated RBC % Not Reportable 12/11/18 21:30 Seg Neutrophils # 2.9 K/mm3 (1.8-7.7) 12/17/18 09:27 Seg Neutrophils # Man 2.7 K/mm3 (1.8-7.7) 12/11/18 21:30 Band Neutrophils # 0.0 K/mm3 12/11/18 21:30 3.9 K/mm3 (1.2-5.4) 12/11/18 21:30 Abs React Lymphs (Man) 0.0 K/mm3 12/11/18 21:30 0.6 K/mm3 (0.0-0.8) 12/11/18 21:30 0.4 K/mm3 (0.0-0.4) 12/11/18 21:30 0.1 K/mm3 (0.0-0.1) 12/11/18 21:30 0.0 K/mm3 12/11/18 21:30 0.0 K/mm3 12/11/18 21:30 0.0 K/mm3 12/11/18 21:30 Blast Cells # 0.0 K/mm3 12/11/18 21:30 WBC Morphology Not Reportable 12/11/18 21:30 Hypersegmented Neuts Not Reportable 12/11/18 21:30 Hyposegmented Neuts Not Reportable 12/11/18 21:30 Hypogranular Neuts Not Reportable 12/11/18 21:30 Not Reportable 12/11/18 21:30 Not Reportable 12/11/18 21:30 Not Reportable 12/11/18 21:30 Not Reportable 12/11/18 21:30 Not Reportable 12/11/18 21:30 Not Reportable 12/11/18 21:30 Consistent w auto 12/11/18 21:30 Not Reportable 12/11/18 21:30 Plt Clumps, EDTA Not Reportable 12/11/18 21:30 Few 12/11/18 21:30 Not Reportable 12/11/18 21:30 Not Reportable 12/11/18 21:30 Plt Morphology Comment Not Reportable 12/11/18 21:30 RBC Morphology Not Reportable 12/11/18 21:30 Dimorphic RBCs Not Reportable 12/11/18 21:30 Not Reportable 12/11/18 21:30 Not Reportable 12/11/18 21:30 Not Reportable 12/11/18 21:30 1+ 12/11/18 21:30 Not Reportable 12/11/18 21:30 Not Reportable 12/11/18 21:30 Not Reportable 12/11/18 21:30 Not Reportable 12/11/18 21:30 Not Reportable 12/11/18 21:30 Not Reportable 12/11/18 21:30 Not Reportable 12/11/18 21:30 Few 12/11/18 21:30 Not Reportable 12/11/18 21:30 Not Reportable 12/11/18 21:30 Not Reportable 12/11/18 21:30 Not Reportable 12/11/18 21:30 Not Reportable 12/11/18 21:30 Not Reportable 12/11/18 21:30 Not Reportable 12/11/18 21:30 Acanthocytes (Spur) Not Reportable 12/11/18 21:30 Rouleaux Not Reportable 12/11/18 21:30 Not Reportable 12/11/18 21:30 Not Reportable 12/11/18 21:30 Not Reportable 12/11/18 21:30 Not Reportable 12/11/18 21:30 Hem Pathologist Commnt No 12/11/18 21:30 PT 18.5 Sec. (12.2-14.9) H 12/11/18 21:30 INR 1.58 (0.87-1.13) H 12/11/18 21:30 APTT 31.5 Sec. (24.2-36.6) 12/11/18 21:30 3643.18 ng/mlDDU (0-234) H 12/11/18 21:30 POC ABG pH 7.387 (7.35-7.45) 12/15/18 15:04 POC ABG pCO2 41.7 (35-45) 12/15/18 15:04 POC ABG pO2 110 (80-105) H 12/15/18 15:04 POC ABG HCO3 25.1 (22-26 mml/L) 12/15/18 15:04 POC ABG Total CO2 26 (23-27mmol/L) 12/15/18 15:04 POC ABG O2 Sat 98 12/15/18 15:04 POC ABG Base Excess 0 ((-2) - (+3)mmol/L) 12/15/18 15:04 28 % 12/15/18 15:04 Sodium 139 mmol/L (137-145) 12/18/18 09:14 Potassium 4.1 mmol/L (3.6-5.0) D 12/18/18 09:14 Chloride 102.7 mmol/L (98-107) 12/18/18 09:14 Carbon Dioxide 25 mmol/L (22-30) 12/18/18 09:14 15 mmol/L 12/18/18 09:14 BUN 6 mg/dL (7-17) L 12/18/18 09:14 0.8 mg/dL (0.7-1.2) 12/18/18 09:14 Estimated GFR > 60 ml/min 12/18/18 09:14 8 % 12/18/18 09:14 Glucose 112 mg/dL (65-100) H 12/18/18 09:14 POC Glucose 95 (70-105) 12/16/18 06:14 Calcium 8.9 mg/dL (8.4-10.2) 12/18/18 09:14 Magnesium 1.70 mg/dL (1.7-2.3) 12/18/18 09:14 Iron 36 ug/dL (37-170) L 12/15/18 10:29 TIBC 251 mcg/dL (250-450) 12/15/18 10:29 79.9 ng/mL (13.0-400.0) 12/15/18 10:29 0.30 mg/dL (0.1-1.2) 12/11/18 21:30 AST 35 units/L (5-40) 12/11/18 21:30 ALT 12 units/L (7-56) 12/11/18 21:30 85 units/L (35-129) 12/11/18 21:30 978 units/L (30-135) H 12/12/18 06:45 CK-MB (CK-2) 9.4 ng/mL (0.0-4.0) H 12/12/18 06:45 CK-MB (CK-2) Rel Index 0.9 (0-4) 12/12/18 06:45 0.131 ng/mL (0.00-0.029) H* 12/12/18 06:45 7.5 g/dL (6.3-8.2) 12/11/18 21:30 3.4 g/dL (3.9-5) L 12/11/18 21:30 0.8 % 12/11/18 21:30 Triglycerides 123 mg/dL (2-149) 12/12/18 00:35 Cholesterol 88 mg/dL (50-199) 12/12/18 00:35 39 mg/dL (50-130) L 12/12/18 00:35 41 mg/dL (40-59) 12/12/18 00:35 2.14 % 12/12/18 00:35 Vitamin B12 702.1 pg/mL (211-911) 12/15/18 10:29 13.86 ng/mL (7.3-26.0) 12/15/18 10:35 RBC Folic Acid >1000 ng/mL (>280) 12/15/18 10:29 TSH 7.660 mlU/mL (0.270-4.200) H 12/15/18 10:29 Free T4 0.81 ng/dL (0.76-1.46) 12/15/18 10:29 Yellow (Yellow) 12/17/18 21:00 Clear (Clear) 12/17/18 21:00 6.0 (5.0-7.0) 12/17/18 21:00 Ur Specific [place] 1.012 (1.003-1.030) 12/17/18 21:00 <15 mg/dl mg/dL (Negative) 12/17/18 21:00 Neg mg/dL (Negative) 12/17/18 21:00 Neg mg/dL (Negative) 12/17/18 21:00 Neg (Negative) 12/17/18 21:00 Neg (Negative) 12/17/18 21:00 Neg (Negative) 12/17/18 21:00 4.0 mg/dL (<2.0) 12/17/18 21:00 Ur Leukocyte Esterase Mod (Negative) 12/17/18 21:00 26.0 /HPF (0.0-6.0) H 12/17/18 21:00 3.0 /HPF (0.0-6.0) 12/17/18 21:00 U Epithel Cells (Auto) 1.0 /HPF (0-13.0) 12/17/18 21:00 Hyaline Casts 1 /LPF 12/11/18 23:31 Few /HPF 12/17/18 21:00 Presumptive negative 12/11/18 23:31 Presumptive negative 12/11/18 23:31 Ur Barbiturates Screen Presumptive negative 12/11/18 23:31 Ur Phencyclidine Scrn Presumptive negative 12/11/18 23:31 Ur Amphetamines Screen Presumptive negative 12/11/18 23:31 U Benzodiazepines Scrn Presumptive negative 12/11/18 23:31 Presumptive negative 12/11/18 23:31 U Marijuana (THC) Screen Presumptive negative 12/11/18 23:31 Disclamer 12/11/18 23:31 Active Medications - Current Medications Current Medications: Generic Name Dose Route Start Last Admin Trade Name Freq PRN Reason Stop Dose Admin Acetaminophen 650 mg 12/12/18 00:38 12/17/18 20:47 Tylenol PO 650 mg Q4H PRN Administration Pain MILD(1-3)/Fever >100.5/STAPLES Albuterol 2.5 mg 12/16/18 21:01 Proventil IH Q4HRT PRN Shortness Of Breath Aspirin 81 mg 12/17/18 10:00 12/17/18 11:11 Baby Aspirin PO 81 mg QDAY KAVITHA Administration Atorvastatin Calcium 40 mg 12/16/18 22:00 12/17/18 21:44 Lipitor PO 40 mg QHS KAVITHA Administration Buspirone HCl 10 mg 12/16/18 22:00 12/17/18 21:43 Buspar PO 10 mg BID KAVITHA Administration Carvedilol 6.25 mg 12/14/18 10:30 12/17/18 21:43 Coreg PO 6.25 mg BID KAVITHA Administration Clopidogrel Bisulfate 75 mg 12/17/18 10:00 12/17/18 11:11 Plavix PO 75 mg QDAY KAVITHA Administration Donepezil HCl 5 mg 12/17/18 10:00 12/17/18 11:11 Aricept PO 5 mg QDAY KAVITHA Administration Escitalopram Oxalate 20 mg 12/17/18 10:00 12/17/18 11:11 Lexapro PO 20 mg DAILY KAVITHA Administration Famotidine 20 mg 12/15/18 10:00 12/17/18 11:11 Pepcid PO 20 mg DAILY [facility] Administration Fluticasone Propionate 50 mcg 12/17/18 17:00 12/17/18 18:10 Flonase NS Not Given QDAY [facility] Hydrophilic Ointment 1 applic 12/11/18 21:59 Vaseline Lip Therapy TP Q2HR PRN Dry Lips Levofloxacin/Dextrose 500 mg in 100 mls @ 100 mls/hr 12/18/18 08:00 Levaquin 500mg/100ml IV Q24H [facility] Protocol Isosorbide Mononitrate 30 mg 12/16/18 12:00 12/17/18 11:12 Imdur PO Not Given QDAY [facility] Lactulose 10 gm 12/17/18 17:00 12/17/18 20:47 Cephulac PO 10 gm TID [facility] Administration Levothyroxine Sodium 50 mcg 12/17/18 06:00 12/18/18 06:27 Synthroid PO 50 mcg QAM@0600 [facility] Administration Memantine 10 mg 12/17/18 22:00 12/17/18 21:44 Namenda PO 10 mg BID [facility] Administration Midodrine 2.5 mg 12/17/18 18:00 12/17/18 21:44 Proamatine PO 2.5 mg BID [facility] Administration Montelukast Sodium 10 mg 12/17/18 18:00 12/17/18 18:09 Singulair PO 10 mg QPM KAVITHA Administration Morphine Sulfate 2 mg 12/14/18 11:58 12/16/18 00:49 Morphine IV 2 mg Q4H PRN Administration Pain, Moderate (4-6) Multi-Ingred Cream/Lotion/Oil/Oint 1 applic 12/11/18 21:26 Artificial Tears Ophth Oint OU Q4HR PRN Dry Eye(s) Nitroglycerin 0.4 mg 12/17/18 16:41 Nitrostat SL Q5M PRN Chest Pain Nortriptyline HCl 75 mg 12/17/18 10:00 12/17/18 11:10 Pamelor PO 75 mg DAILY KAVITHA Administration Ondansetron HCl 4 mg 12/12/18 00:38 Zofran IV Q8H PRN Nausea And Vomiting Sodium Chloride 10 ml 12/12/18 10:00 12/17/18 21:53 Sodium Chloride Flush Syringe 10 Ml IV 10 ml BID KAVITHA Administration Sodium Chloride 10 ml 12/12/18 00:38 Sodium Chloride Flush Syringe 10 Ml IV PRN PRN LINE FLUSH Nutrition/Malnutrition Assess - Dietary Evaluation Nutrition/Malnutrition Findings: Nutrition Notes Start: 12/12/18 10:59 Freq: Status: Active Protocol: Document 12/17/18 10:18 LP (Rec: 12/17/18 10:27 LP [id number]) Nutrition Notes Need for Assessment generated from: MD Order Current Diagnosis COPD,Hypertension Other Pertinent Diagnosis Cardiac Arrest, AMI Current Diet Cardiac, GI soft Labs/Tests Reviewed Pertinent Medications Reviewed Height 5 ft 6 in Weight 63.6 kg [place] Body Weight (kg) 59.09 BMI 22.6 Subjective/Other Information Consult for poor intakes. Pt ate very little oatmeal this morning and toast. Pt states she would like fruit and does not like supplements. Burn Absent Trauma Absent #1 Nutrition Diagnosis Inadequate oral intake Diagnosis Progress(for reassessment Continues documentation) Is patient on ventilator? No Is Patient Ambulatory and/or Out of Bed No REE-([facility]-confined to bed) 1354.212 Calculation Used for Recommendations [facility] Additional Notes Protein needs: 64-76g (1-1.2g/ kg) Fluid needs are 1ml/kcal Nutrition Intervention Change Diet Order: Continue current Add Supplement/Snack (indicate name/kcal Change to Ensure clear apple /protein ) BID Provides kCal: 480 Provides Protein (gm) 16 Goal #1 Meet at least 75% of calorie and protein needs via PO and ONS intakes Anticipated Discharge Needs: Cardiac diet with ONS as needed Follow-Up By: 12/20/18 Additional Comments Follow for intakes and ONS tolerance
[2018-12-18] MEDS: BABY ASPIRIN PO SCH (10:55)
[2018-12-18] MEDS: FLONASE NS SCH (10:55)
[2018-12-18] MEDS: COREG PO SCH ×2 (10:55→22:01)
[2018-12-18] MEDS: ARICEPT PO SCH (10:55)
[2018-12-18] MEDS: PLAVIX PO SCH (10:55)
[2018-12-18] MEDS: CEPHULAC PO SCH ×3 (10:55→22:03)
[2018-12-18] MEDS: IMDUR PO SCH (10:55)
[2018-12-18] MEDS: PEPCID PO SCH (10:55)
[2018-12-18] MEDS: LEXAPRO PO SCH (10:56)
[2018-12-18] MEDS: NAMENDA PO SCH ×2 (10:56→22:02)
[2018-12-18] MEDS: PROAMATINE PO SCH ×2 (10:56→22:01)
[2018-12-18] MEDS: SODIUM CHLORIDE FLUSH SYRINGE 10 ML IV SCH ×2 (10:57→22:08)
[2018-12-18] MEDS: PAMELOR PO SCH (10:57)
[2018-12-18] MEDS: BUSPAR PO SCH ×2 (10:57→22:01)
[2018-12-18] MEDS: PROVENTIL IH PRN (11:38)
--- NOTE | 2018-12-18 11:56 | Progress Note ---
Assessment and Plan Stable cardiac status. OK to DC on current cardiac meds. I have discussed with the patient and family members. They already have flight tickets to return to [place], [place]. They will leave as soon as discharged. She is to f/u with her EP graduate civil engineer ALEJANDRA. Will benefit from DFT testing since the device apparently did not terminate her VT/VF, although we have lowered the detection HR that will trigger the device. - Patient Problems (1) Cardiac arrest Current Visit: Yes Status: Acute (2) Ventricular fibrillation Current Visit: Yes Status: Acute (3) Ventricular tachycardia Current Visit: Yes Status: Acute (4) ICD (implantable cardioverter-defibrillator) discharge Current Visit: Yes Status: Acute (5) Acute respiratory failure Current Visit: Yes Status: Acute (6) Elevated troponin level Current Visit: Yes Status: Acute (7) Thrombocytopenia Current Visit: Yes Status: Acute (8) Moderate to severe pulmonary hypertension Current Visit: Yes Status: Acute (9) CAD (coronary artery disease) Current Visit: Yes Status: Chronic Qualifiers: Coronary Disease-Associated Artery/Lesion type: [place] artery (10) Ischemic cardiomyopathy Current Visit: Yes Status: Acute (11) Right ventricular dysfunction Current Visit: Yes Status: Acute (12) Hx of CABG Current Visit: Yes Status: Chronic (13) COPD (chronic obstructive pulmonary disease) Current Visit: Yes Status: Chronic (14) Hypothyroidism Current Visit: Yes Status: Chronic Subjective Date of service: 12/18/18 Principal diagnosis: Ac hypoxemic resp failure; Cardiac arrest; KAYLEEN; Ac encephalopathy; NSTEMI Interval history: No complaint. In NSR. Objective Vital Signs Temp Pulse Pulse Resp Resp BP BP 12/18/18 04:22 98.0 F 81 18 128/70 12/18/18 00:23 98.6 F 12/17/18 23:37 122.0 F H 89 18 138/76 12/17/18 22:35 81 18 12/17/18 21:47 18 12/17/18 21:43 81 119/76 12/17/18 21:30 18 12/17/18 20:47 18 12/17/18 19:48 84 12/17/18 19:09 98.8 F 81 20 119/76 12/17/18 17:52 98.4 F 87 16 126/64 12/17/18 14:22 73 130/66 Pulse Ox 12/18/18 04:22 95 12/18/18 00:23 12/17/18 23:37 95 12/17/18 22:35 93 12/17/18 21:47 12/17/18 21:43 12/17/18 21:30 12/17/18 20:47 12/17/18 19:48 12/17/18 19:09 93 12/17/18 17:52 93 12/17/18 14:22 - Physical Examination General: No Apparent Distress HEENT: Positive: EOMI, Normocephaly, Mucus Membranes Moist Neck: Positive: neck supple, trachea midline Cardiac: Positive: Reg Rate and Rhythm, S1/S2 Lungs: Positive: clear to auscultation Neuro: Positive: Grossly Intact Abdomen: Positive: Soft, Active Bowel Sounds. Negative: Tender Skin: Positive: Clear. Negative: Rash Musculoskeletal: Normal Range of Motion Extremities: Present: normal. Absent: edema - Labs and Meds Comprehensive Metabolic Panel 12/18/18 Range/Units 09:14 Sodium 139 (137-145) mmol/L Potassium 4.1 D (3.6-5.0) mmol/L Chloride 102.7 (98-107) mmol/L Carbon Dioxide 25 (22-30) mmol/L BUN 6 L (7-17) mg/dL Creatinine 0.8 (0.7-1.2) mg/dL Glucose 112 H (65-100) mg/dL Calcium 8.9 (8.4-10.2) mg/dL - Imaging and Cardiology EKG: image reviewed Echo: image reviewed Cardiac cath: report reviewed (lt main distal 100%, hubbard is atretic and svg to om1 patent, rca mid stent patent ef 25-30% right to left collaterals to diffuse lad not amenable to revascularization, and svg to pda 100% and svg to diagona 1 100%) - Telemetry EKG Rhythm: Sinus Rhythm - EKG Sinus rhythms and dysrhythmias: sinus rhythm AV and intraventricular conduction: right bundle branch block, left anterior fascicular - Allied health notes Allied health notes reviewed: nursing
--- NOTE | 2018-12-18 14:05 | Progress Note ---
Assessment and Plan Cultures: Sputum culture 12/11/2018 normal resp brock Blood culture 12/18/2018 pending Urine culture 12/18/2018 neg Assessment: 78 y/o female with a history of COPD, coronary artery disease, hypertension, hypothyroidism, CMP s/p ICD admitted on 12/11/2018 due to 24 hour-history of generalized weakness and syncope. She came to [facility] for a basketball tournament. She was found weak and pale after some activity. She came to the ED, her ICD was not interrogated. She was discharged back to the [facility] where she had another episode of syncope. EMS was called, she was found to be in V. tach and shock 5 times, given amiodarone and was intubated here in the emergency room: 1) Cardiac arrest s/p CRP and post arrest hypotension: hypotension resolved. Found to be in V. tach and shock 5 times, given amiodarone IV 2) Respiratory failure: ? pulmonary edema. CXR and CTA negative for consolidations. Sputum culture 12/11/2018 normal resp brock, likely colonizer. 3) UTI: repeat UA c/w mild UTI Recommendations: - f/u blood and urine culture - start aztreonam IV for UTI - if no fever for 24h ok to d/c on levaquin po total 3 days Will follow. Yaneli Ramirez MD Infectious Diseases Surveillance Dual Rate Officer [facility] M [phone] O [phone] Subjective Date of service: 12/18/18 Principal diagnosis: Ac hypoxemic resp failure; Cardiac arrest; KAYLEEN; Ac encephalopathy; NSTEMI Interval history: Patient feels better, no fever, reports urine with strong odor. family at bedside. Objective - Exam Narrative Exam: General appearance: Alert in NAD Eyes: anicteric sclerae, moist conjunctivae; no lid-lag; PERRLA HENT: Atraumatic; edentulous Neck: Trachea midline; supple, no thyromegaly or lymphadenopathy Lungs: CTA maria a. ICD to left chest CV: RRR no murmur Abdomen: Soft, non-tender Extremities: no edema, cyanosis Skin: Normal temperature, turgor and texture; no rash, ulcers or subcutaneous nodules Psych: no agitated - Constitutional Vitals: Vital Signs Temp Pulse Resp BP Pulse Ox 98.0 F 81 18 128/70 95 07/21/19 04:22 12/18/18 04:22 12/18/18 04:22 12/18/18 04:22 12/18/18 04:22 Temperature -Last 24 Hours Temperature 98.0 F Temperature 98.6 F Temperature 122.0 F Temperature 98.8 F Temperature 98.4 F - Labs CBC & Chem 7: 12/17/18 09:27 12/18/18 09:14 Labs: Abnormal lab results 12/17/18 12/18/18 Range/Units 21:00 09:14 BUN 6 L (7-17) mg/dL Glucose 112 H (65-100) mg/dL Urine WBC (Auto) 26.0 H (0.0-6.0) /HPF
[2018-12-18 17:51] LABS: Heparin-Induced Platelet Antib Negative (Negative); Unfractionated Heparin Negative (Negative)
[2018-12-18] MEDS: AZACTAM/NS 1 GM/50 ML 1 GM/50 ML VIAL IV SCH ×2 (17:55→22:10)
[2018-12-18] MEDS: SINGULAIR PO SCH (18:03)
--- NOTE | 2018-12-18 19:35 | Progress Note ---
Assessment and Plan Acute hypoxemic respiratory failure, s/p mechanical ventilatory support, extubated Status post cardiac arrest, possible ventricular tachycardia with return of spontaneous circulation. History of cardiomyopathy Coronary artery disease, status post coronary artery bypass graft. Chronic obstructive pulmonary disease. Acute encephalopathy Hyperkalemia at presentation. Acute kidney injury. Elevated serum troponins. Oropharyngeal dysphagia Subjective Date of service: 12/18/18 Principal diagnosis: Ac hypoxemic resp failure; Cardiac arrest; KAYLEEN; Ac en cephalopathy; NSTEMI Interval history: Patient is seen today for: Ac hypoxemic resp failure; S/P cardiac arrest; H/O CMOP; CAD; COPD; Acute encephalopathy, possible anoxic element; Acute kidney injury; NSTEMI; Oropharyngeal dysphagia. Seen and examined at bedside; 24hour events reviewed; nursing and respiratory care staff consulted; no adverse overnight events reported to me; resting peacefully in bed, has some abdominal breathing, daughter is at the bedside, she states her mother just got some medication but apparently did not sleep much overnight; vitals, labs, medications, chart reviewed Objective Vital Signs - 12hr 12/18/18 12/18/18 12/18/18 08:48 10:00 11:00 Temperature 97.6 F Pulse Rate 93 H 90 Respiratory 16 Rate Respiratory 18 Rate [Abdomen] Blood Pressure 141/85 O2 Sat by Pulse 97 96 Oximetry 12/18/18 12:14 Temperature 98.5 F Pulse Rate 90 Respiratory 16 Rate Respiratory Rate [Abdomen] Blood Pressure 150/77 O2 Sat by Pulse 100 Oximetry Constitutional: no acute distress, other (elderly looking AAF, normocephalic and atraumatic with mildly increased resp effort at rest) Eyes: non-icteric ENT: oropharynx moist, other (ETT 24 cm VERONICA) Neck: supple, no lymphadenopathy, no JVD Effort: mildly labored Ascultation: Bilateral: clear, diminished breath sounds Percussion: Bilateral: not dull Cardiovascular: regular rate and rhythm, murmur noted (systyolic) Gastrointestinal: normoactive bowel sounds, soft, non-tender, non-distended Integumentary: normal Extremities: no cyanosis, no edema, pulses normal, no ischemia or petechiae Neurologic: normal mental status, non-focal exam (grossly), pupils equal and round, motor strength normal and Psychiatric: mood appropriate, affect normal CBC and BMP: 12/17/18 09:27 12/18/18 09:14 ABG, PT/INR, D-dimer: ABG POC ABG pH 7.387 (7.35-7.45) 12/15/18 15:04 POC ABG pCO2 41.7 (35-45) 12/15/18 15:04 POC ABG pO2 110 (80-105) H 12/15/18 15:04 POC ABG HCO3 25.1 (22-26 mml/L) 12/15/18 15:04 POC ABG Total CO2 26 (23-27mmol/L) 12/15/18 15:04 POC ABG O2 Sat 98 12/15/18 15:04 PT/INR, D-dimer PT 18.5 Sec. (12.2-14.9) H 12/11/18 21:30 INR 1.58 (0.87-1.13) H 12/11/18 21:30 3643.18 ng/mlDDU (0-234) H 12/11/18 21:30 Abnormal lab findings: Abnormal Labs 12/11/18 12/11/18 12/11/18 21:30 21:30 21:30 WBC RBC 3.44 L Hgb Hct RDW 17.9 H Plt Count Lymph % (Auto) [place] % (Auto) Eos % (Auto) [place] # Eos # Seg Neutrophils % Seg Neuts % (Manual) 35.0 L Lymphocytes % (Manual) 51.0 H Monocytes % (Manual) 8.0 H Eosinophils % (Manual) 5.0 H PT 18.5 H INR 1.58 H D-Dimer 3643.18 H POC ABG pH POC ABG pCO2 POC ABG pO2 Sodium 136 L Potassium 5.3 H Chloride 97.2 L Carbon Dioxide 20 L BUN 18 H Creatinine 1.4 H Glucose 137 H POC Glucose Calcium Iron Total Creatine Kinase CK-MB (CK-2) Troponin T Albumin 3.4 L LDL Cholesterol Direct TSH Urine WBC (Auto) 12/11/18 12/12/18 12/12/18 22:35 00:35 02:30 WBC RBC 3.16 L Hgb 9.2 L Hct 27.9 L RDW 17.7 H Plt Count 127 L Lymph % (Auto) [place] % (Auto) Eos % (Auto) [place] # Eos # Seg Neutrophils % 75.7 H Seg Neuts % (Manual) Lymphocytes % (Manual) Monocytes % (Manual) Eosinophils % (Manual) PT INR D-Dimer POC ABG pH POC ABG pCO2 POC ABG pO2 344 H Sodium Potassium Chloride Carbon Dioxide BUN Creatinine Glucose POC Glucose Calcium Iron Total Creatine Kinase CK-MB (CK-2) Troponin T 0.106 H* D Albumin LDL Cholesterol Direct 39 L TSH Urine WBC (Auto) 12/12/18 12/12/18 12/12/18 02:30 02:30 03:50 WBC RBC Hgb Hct RDW Plt Count Lymph % (Auto) [place] % (Auto) Eos % (Auto) [place] # Eos # Seg Neutrophils % Seg Neuts % (Manual) Lymphocytes % (Manual) Monocytes % (Manual) Eosinophils % (Manual) PT INR D-Dimer POC ABG pH 7.494 H POC ABG pCO2 POC ABG pO2 220 H Sodium Potassium Chloride Carbon Dioxide 18 L BUN 23 H Creatinine 1.4 H Glucose 189 H POC Glucose Calcium 7.5 L Iron Total Creatine Kinase 431 H CK-MB (CK-2) 6.9 H Troponin T 0.146 H* D Albumin LDL Cholesterol Direct TSH Urine WBC (Auto) 12/12/18 12/12/18 12/13/18 06:45 17:37 04:15 WBC RBC 2.84 L Hgb 8.2 L Hct 25.2 L RDW 17.9 H Plt Count 116 L Lymph % (Auto) [place] % (Auto) 8.3 H Eos % (Auto) [place] # 0.9 H Eos # Seg Neutrophils % Seg Neuts % (Manual) Lymphocytes % (Manual) Monocytes % (Manual) Eosinophils % (Manual) PT INR D-Dimer POC ABG pH POC ABG pCO2 32.4 L POC ABG pO2 Sodium Potassium Chloride Carbon Dioxide BUN Creatinine Glucose POC Glucose Calcium Iron Total Creatine Kinase 978 H CK-MB (CK-2) 9.4 H Troponin T 0.131 H* Albumin LDL Cholesterol Direct TSH Urine WBC (Auto) 12/13/18 12/14/18 12/15/18 04:15 04:20 04:13 WBC 12.4 H RBC 2.92 L 2.92 L Hgb 8.5 L 8.7 L Hct 26.2 L 26.0 L RDW 17.9 H 17.7 H Plt Count 113 L 119 L Lymph % (Auto) [place] % (Auto) 7.4 H Eos % (Auto) 6.6 H [place] # Eos # 0.6 H Seg Neutrophils % Seg Neuts % (Manual) Lymphocytes % (Manual) Monocytes % (Manual) Eosinophils % (Manual) PT INR D-Dimer POC ABG pH POC ABG pCO2 POC ABG pO2 Sodium Potassium Chloride 108.3 H Carbon Dioxide 20 L BUN 21 H Creatinine 1.3 H Glucose 109 H POC Glucose Calcium 7.9 L Iron Total Creatine Kinase CK-MB (CK-2) Troponin T Albumin LDL Cholesterol Direct TSH Urine WBC (Auto) 12/15/18 12/15/18 12/15/18 10:29 10:29 12:22 WBC RBC Hgb Hct RDW Plt Count Lymph % (Auto) [place] % (Auto) Eos % (Auto) [place] # Eos # Seg Neutrophils % Seg Neuts % (Manual) Lymphocytes % (Manual) Monocytes % (Manual) Eosinophils % (Manual) PT INR D-Dimer POC ABG pH POC ABG pCO2 POC ABG pO2 Sodium Potassium Chloride Carbon Dioxide BUN Creatinine Glucose POC Glucose 154 H Calcium Iron 36 L Total Creatine Kinase CK-MB (CK-2) Troponin T Albumin LDL Cholesterol Direct TSH 7.660 H Urine WBC (Auto) 12/15/18 12/17/18 12/17/18 15:04 09:27 09:27 WBC RBC 2.98 L Hgb 8.9 L Hct 26.4 L RDW 17.6 H Plt Count Lymph % (Auto) 36.7 H [place] % (Auto) 10.9 H Eos % (Auto) 11.4 H [place] # Eos # 0.8 H Seg Neutrophils % Seg Neuts % (Manual) Lymphocytes % (Manual) Monocytes % (Manual) Eosinophils % (Manual) PT INR D-Dimer POC ABG pH POC ABG pCO2 POC ABG pO2 110 H Sodium Potassium 3.1 L D Chloride Carbon Dioxide BUN Creatinine Glucose 130 H POC Glucose Calcium Iron Total Creatine Kinase CK-MB (CK-2) Troponin T Albumin LDL Cholesterol Direct TSH Urine WBC (Auto) 12/17/18 12/18/18 21:00 09:14 WBC RBC Hgb Hct RDW Plt Count Lymph % (Auto) [place] % (Auto) Eos % (Auto) [place] # Eos # Seg Neutrophils % Seg Neuts % (Manual) Lymphocytes % (Manual) Monocytes % (Manual) Eosinophils % (Manual) PT INR D-Dimer POC ABG pH POC ABG pCO2 POC ABG pO2 Sodium Potassium Chloride Carbon Dioxide BUN 6 L Creatinine Glucose 112 H POC Glucose Calcium Iron Total Creatine Kinase CK-MB (CK-2) Troponin T Albumin LDL Cholesterol Direct TSH Urine WBC (Auto) 26.0 H Allied health notes reviewed: nursing
[2018-12-18] MEDS: TYLENOL PO PRN (22:12)
[2018-12-19] MEDS: AZACTAM/NS 1 GM/50 ML 1 GM/50 ML VIAL IV SCH ×4 (06:02→23:07)
[2018-12-19] MEDS: SYNTHROID PO SCH (06:02)
[2018-12-19] MEDS: TYLENOL PO PRN (06:03)
[2018-12-19] MEDS: COREG PO SCH ×2 (09:28→23:10)
[2018-12-19] MEDS: CEPHULAC PO SCH ×3 (09:28→21:54)
[2018-12-19] MEDS: PAMELOR PO SCH (09:29)
[2018-12-19] MEDS: ARICEPT PO SCH (09:29)
[2018-12-19] MEDS: LEXAPRO PO SCH (09:29)
[2018-12-19] MEDS: PLAVIX PO SCH (09:29)
[2018-12-19] MEDS: PEPCID PO SCH (09:29)
[2018-12-19] MEDS: FLONASE NS SCH (09:30)
[2018-12-19] MEDS: IMDUR PO SCH (09:30)
[2018-12-19] MEDS: BABY ASPIRIN PO SCH (09:30)
[2018-12-19] MEDS: PROAMATINE PO SCH ×2 (09:30→21:54)
[2018-12-19] MEDS: BUSPAR PO SCH ×2 (09:30→21:51)
[2018-12-19] MEDS: NAMENDA PO SCH ×2 (09:31→21:54)
[2018-12-19] MEDS: SODIUM CHLORIDE FLUSH SYRINGE 10 ML IV SCH ×2 (09:31→22:00)
--- NOTE | 2018-12-19 09:52 | Progress Note ---
Assessment and Plan Cultures: Sputum culture 12/11/2018 normal resp brock Blood culture 12/18/2018 pending Urine culture 12/18/2018 neg Assessment: 78 y/o female with a history of COPD, coronary artery disease, hypertension, hypothyroidism, CMP s/p ICD admitted on 12/11/2018 due to 24 hour-history of generalized weakness and syncope. She came to [facility] for a basketball tournament. She was found weak and pale after some activity. She came to the ED, her ICD was not interrogated. She was discharged back to the [facility] where she had another episode of syncope. EMS was called, she was found to be in V. tach and shock 5 times, given amiodarone and was intubated here in the emergency room: 1) Cardiac arrest s/p CRP and post arrest hypotension: hypotension resolved. Found to be in V. tach and shock 5 times, given amiodarone IV 2) Respiratory failure: ? pulmonary edema. CXR and CTA negative for consolidations. Sputum culture 12/11/2018 normal resp brock, likely colonizer. 3) UTI: repeat UA c/w mild UTI Recommendations: - f/u blood and urine culture - continue aztreonam IV for UTI Anticipate discharge on levaquin 500mg Po BID for 3 days [employer] [employer] M: [phone] O:[phone] Subjective Date of service: 12/19/18 Principal diagnosis: Ac hypoxemic resp failure; Cardiac arrest; KAYLEEN; Ac e ncephalopathy; NSTEMI Interval history: Patient seen and examined. Asleep but easy to arouse. No acute distress reported. Daughter at bedside. No fevers. Objective - Exam Narrative Exam: Constitutional: Asleep. Easy to arouse. No acute distress Head, Ears, Nose: Normocephalic, atraumatic. External ears, nose normal Eyes: Conjunctivae/corneas clear. No icterus. No ptosis. Neck: Supple, no meningeal signs Cardiovascular: S1, S2 normal. AICD site non tender Respiratory: Good air entry, clear to auscultation bilaterally GI: Soft, non-tender; bowel sounds normal. No peritoneal signs Musculoskeletal: No pedal edema, no cyanosis. Skin: No rash or abscess Hem/Lymphatic: No palpable cervical or supraclavicular nodes. No lymphangitis Psych: Mood ok. Affect normal Neurological: Awake, alert, but not oriented to time or place. - Constitutional Vitals: Vital Signs Temp Pulse Resp BP Pulse Ox 97.9 F 69 16 133/76 100 12/19/18 08:30 12/19/18 08:30 12/19/18 08:30 12/19/18 09:30 12/19/18 08:30 Temperature -Last 24 Hours Temperature 97.9 F Temperature 98.0 F Temperature 98.0 F Temperature 98.0 F Temperature 98.5 F Temperature 98.5 F - Labs CBC & Chem 7: 12/17/18 09:27 12/18/18 09:14 Labs: Abnormal lab results 12/18/18 Range/Units 09:14 BUN 6 L (7-17) mg/dL Glucose 112 H (65-100) mg/dL
--- NOTE | 2018-12-19 15:27 | Discharge Summary ---
Providers - Providers Date of Admission: 12/12/18 00:38 Date of discharge: 12/19/18 Attending physician: YASMIN BAIRD 12/11/18 21:26 Consult to Dietitian/Nutrition [CONS] Routine Physician Instructions: Reason For Exam: Reason for Consult: Evaluate nutritional intake 12/11/18 22:00 Consult to Dietitian/Nutrition [CONS] Routine Physician Instructions: Reason For Exam: Reason for Consult: Evaluate nutritional intake 12/12/18 00:49 Consult to Physician [CONS] Routine Comment: Consulting Provider: ANNA SILVA Physician Instructions: Reason For Exam: cc 12/12/18 00:51 Consult to Physician [CONS] Routine Comment: Consulting Provider: SUE QUINN Physician Instructions: Reason For Exam: vtac 12/12/18 13:29 Consult to Physician [CONS] Routine Comment: Consulting Provider: ELADIO COLEMAN Physician Instructions: Reason For Exam: possible sepsis / pneumonia 12/13/18 12:02 Physical Therapy Evaluation and Treat [CONS] Routine Comment: Reason For Exam: evaluate and treat 12/15/18 14:06 Physical Therapy Evaluation and Treat [CONS] Routine Comment: Reason For Exam: weakness 12/16/18 11:08 Consult to Cardiac Rehabilitation [CONS] Routine Reason For Exam: Cardiac Rehab Evaluation 12/16/18 21:02 Consult to Dietitian/Nutrition [CONS] Routine Physician Instructions: Reason For Exam: Reason for Consult: Poor oral intake Hospitalization Condition: Fair Disposition: DC-01 TO HOME OR SELFCARE Core Measure Documentation - Palliative Care Palliative Care/ Comfort Measures: Not Applicable - Core Measures Any of the following diagnoses?: none Exam - Constitutional Vitals: Temp Pulse Resp BP Pulse Ox 97.4 F L 72 16 111/57 96 12/19/18 11:27 12/19/18 11:27 12/19/18 11:27 12/19/18 11:27 12/19/18 11:52 Plan Activity: advance as tolerated Diet: low fat, low cholesterol, low salt Follow up with: PRIMARY CARE,MD [Referring] - 3-5 Days
[2018-12-19] MEDS ORDERED: NACL 0.9% 500 ML 500 ML ONE (16:43)
[2018-12-19] MEDS ORDERED: NACL 0.9% 500 ML 500 ML IV ONE (16:43)
--- NOTE | 2018-12-19 16:43 | Progress Note ---
Assessment and Plan Assessment and plan: Patient is 78 -year-old woman with a history of coronary artery disease, hypertension, hypothyroidism, COPD was brought to the emergency room for evaluation. She is visiting from [place]. She presented with syncope. EMS was called, she was found to be in V. tach and shocked 5 times, given amiodarone and was intubated here in the emergency room. patient became hypotensive when propofol drip was started, started on levophed drip. She was admitted to ICU. She improved, was extubated, came off pressors, transferred to Telemetry. cardiac cath done 12/16 and medical management recommended. She has been stabilised awaiting re-eval by PT , however today was lethargic with BP 89/51. Fluid bolus was given and intended discharfge canceled. Also she needs PT re- evaluation prior to dc hopefully in few days. s/p cardiac arrest Ventricular tachycardia/fibrillation. cardiac cath done 12/16/18. Medical management recommended. Cardiogenic shock, resolved, off pressors. Acute on chronic hypoxic respiratory failure was intubated, extubated 12/13. Pulmonary following. Patient was on home Oxygen 2l/min Anemia. Dementia. On namenda,Aricept Thrombocytopenia. Follow CBC. CAD. History of CABG. COPD. Continue bronchodilators. Hypothyroidism. Continue Synthroid. KAYLEEN due to vasomotor nephropathy, Resolved Disposition:Await Physical therapy re-eval. BP was low today. Discussed with one of daughters at bedside History Interval history: s/p cardiac arrest no chest pain Was to be discharged today when found to have had low BP, lethargic Hospitalist Physical - Physical exam Narrative exam: Gen: Not in acute distress, lying in bed, HEENT: Normocephalic, atraumatic Neck: supple, no JVD Heart: S1 and S2 reg, no murmurs, rubs or gallop Lungs: Clear, no crackles or wheeze Abd: soft, non tender, non distended, normal BS Ext:no edema, no clubbing, no cyanosis Neuro: Awake,alert,oriented,moves all ext - Constitutional Vitals: Temp Pulse Resp BP Pulse Ox 97.9 F 69 18 89/51 100 12/19/18 15:54 12/19/18 15:54 12/19/18 15:54 12/19/18 15:54 12/19/18 15:54 General appearance: Present: no acute distress, other (unresponsive, orally intubated on mechanical ventilation) Results - Labs CBC & Chem 7: 12/17/18 09:27 12/18/18 09:14 Labs: Laboratory Last Values WBC 7.2 K/mm3 (4.5-11.0) 12/17/18 09:27 RBC 2.98 M/mm3 (3.65-5.03) L 12/17/18 09:27 Hgb 8.9 gm/dl (10.1-14.3) L 12/17/18 09:27 Hct 26.4 % (30.3-42.9) L 12/17/18 09:27 MCV 89 fl (79-97) 12/17/18 09:27 MCH 30 pg (28-32) 12/17/18 09:27 MCHC 34 % (30-34) 12/17/18 09:27 RDW 17.6 % (13.2-15.2) H 12/17/18 09:27 Plt Count 148 K/mm3 (140-440) 12/17/18 09:27 Lymph % (Auto) 36.7 % (13.4-35.0) H 12/17/18 09:27 [place] % (Auto) 10.9 % (0.0-7.3) H 12/17/18 09:27 Eos % (Auto) 11.4 % (0.0-4.3) H 12/17/18 09:27 Baso % (Auto) 0.5 % (0.0-1.8) 12/17/18 09:27 Lymph # 2.6 K/mm3 (1.2-5.4) 12/17/18 09:27 [place] # 0.8 K/mm3 (0.0-0.8) 12/17/18 09:27 Eos # 0.8 K/mm3 (0.0-0.4) H 12/17/18 09:27 Baso # 0.0 K/mm3 (0.0-0.1) 12/17/18 09:27 Add Manual Diff Complete 12/11/18 21:30 Total Counted 100 12/11/18 21:30 Seg Neutrophils % 40.5 % (40.0-70.0) 12/17/18 09:27 Seg Neuts % (Manual) 35.0 % (40.0-70.0) L 12/11/18 21:30 0 % 12/11/18 21:30 51.0 % (13.4-35.0) H 12/11/18 21:30 Reactive Lymphs % (Man) 0 % 12/11/18 21:30 8.0 % (0.0-7.3) H 12/11/18 21:30 5.0 % (0.0-4.3) H 12/11/18 21:30 1.0 % (0.0-1.8) 12/11/18 21:30 0 % 12/11/18 21:30 0 % 12/11/18 21:30 0 % 12/11/18 21:30 0 % 12/11/18 21:30 Nucleated RBC % Not Reportable 12/11/18 21:30 Seg Neutrophils # 2.9 K/mm3 (1.8-7.7) 12/17/18 09:27 Seg Neutrophils # Man 2.7 K/mm3 (1.8-7.7) 12/11/18 21:30 Band Neutrophils # 0.0 K/mm3 12/11/18 21:30 3.9 K/mm3 (1.2-5.4) 12/11/18 21:30 Abs React Lymphs (Man) 0.0 K/mm3 12/11/18 21:30 0.6 K/mm3 (0.0-0.8) 12/11/18 21:30 0.4 K/mm3 (0.0-0.4) 12/11/18 21:30 0.1 K/mm3 (0.0-0.1) 12/11/18 21:30 0.0 K/mm3 12/11/18 21:30 0.0 K/mm3 12/11/18 21:30 0.0 K/mm3 12/11/18 21:30 Blast Cells # 0.0 K/mm3 12/11/18 21:30 WBC Morphology Not Reportable 12/11/18 21:30 Hypersegmented Neuts Not Reportable 12/11/18 21:30 Hyposegmented Neuts Not Reportable 12/11/18 21:30 Hypogranular Neuts Not Reportable 12/11/18 21:30 Not Reportable 12/11/18 21:30 Not Reportable 12/11/18 21:30 Not Reportable 12/11/18 21:30 Not Reportable 12/11/18 21:30 Not Reportable 12/11/18 21:30 Not Reportable 12/11/18 21:30 Consistent w auto 12/11/18 21:30 Not Reportable 12/11/18 21:30 Plt Clumps, EDTA Not Reportable 12/11/18 21:30 Few 12/11/18 21:30 Not Reportable 12/11/18 21:30 Not Reportable 12/11/18 21:30 Plt Morphology Comment Not Reportable 12/11/18 21:30 RBC Morphology Not Reportable 12/11/18 21:30 Dimorphic RBCs Not Reportable 12/11/18 21:30 Not Reportable 12/11/18 21:30 Not Reportable 12/11/18 21:30 Not Reportable 12/11/18 21:30 1+ 12/11/18 21:30 Not Reportable 12/11/18 21:30 Not Reportable 12/11/18 21:30 Not Reportable 12/11/18 21:30 Not Reportable 12/11/18 21:30 Not Reportable 12/11/18 21:30 Not Reportable 12/11/18 21:30 Not Reportable 12/11/18 21:30 Few 12/11/18 21:30 Not Reportable 12/11/18 21:30 Not Reportable 12/11/18 21:30 Not Reportable 12/11/18 21:30 Not Reportable 12/11/18 21:30 Not Reportable 12/11/18 21:30 Not Reportable 12/11/18 21:30 Not Reportable 12/11/18 21:30 Acanthocytes (Spur) Not Reportable 12/11/18 21:30 Rouleaux Not Reportable 12/11/18 21:30 Not Reportable 12/11/18 21:30 Not Reportable 12/11/18 21:30 Not Reportable 12/11/18 21:30 Not Reportable 12/11/18 21:30 Hem Pathologist Commnt No 12/11/18 21:30 PT 18.5 Sec. (12.2-14.9) H 12/11/18 21:30 INR 1.58 (0.87-1.13) H 12/11/18 21:30 APTT 31.5 Sec. (24.2-36.6) 12/11/18 21:30 3643.18 ng/mlDDU (0-234) H 12/11/18 21:30 Heparin Anti-Xa, Unfract Negative (Negative) 12/15/18 10:29 POC ABG pH 7.407 (7.35-7.45) 12/19/18 11:52 POC ABG pCO2 43.3 (35-45) 12/19/18 11:52 POC ABG pO2 71 (80-105) L 12/19/18 11:52 POC ABG HCO3 27.3 (22-26 mml/L) 12/19/18 11:52 POC ABG Total CO2 29 (23-27mmol/L) 12/19/18 11:52 POC ABG O2 Sat 94 12/19/18 11:52 POC ABG Base Excess 3 ((-2) - (+3)mmol/L) 12/19/18 11:52 21 % 12/19/18 11:52 Sodium 139 mmol/L (137-145) 12/18/18 09:14 Potassium 4.1 mmol/L (3.6-5.0) D 12/18/18 09:14 Chloride 102.7 mmol/L (98-107) 12/18/18 09:14 Carbon Dioxide 25 mmol/L (22-30) 12/18/18 09:14 15 mmol/L 12/18/18 09:14 BUN 6 mg/dL (7-17) L 12/18/18 09:14 0.8 mg/dL (0.7-1.2) 12/18/18 09:14 Estimated GFR > 60 ml/min 12/18/18 09:14 8 % 12/18/18 09:14 Glucose 112 mg/dL (65-100) H 12/18/18 09:14 POC Glucose 134 (70-105) H 12/19/18 11:31 Calcium 8.9 mg/dL (8.4-10.2) 12/18/18 09:14 Magnesium 1.70 mg/dL (1.7-2.3) 12/18/18 09:14 Iron 36 ug/dL (37-170) L 12/15/18 10:29 TIBC 251 mcg/dL (250-450) 12/15/18 10:29 79.9 ng/mL (13.0-400.0) 12/15/18 10:29 0.30 mg/dL (0.1-1.2) 12/11/18 21:30 AST 35 units/L (5-40) 12/11/18 21:30 ALT 12 units/L (7-56) 12/11/18 21:30 85 units/L (35-129) 12/11/18 21:30 978 units/L (30-135) H 12/12/18 06:45 CK-MB (CK-2) 9.4 ng/mL (0.0-4.0) H 12/12/18 06:45 CK-MB (CK-2) Rel Index 0.9 (0-4) 12/12/18 06:45 0.131 ng/mL (0.00-0.029) H* 12/12/18 06:45 7.5 g/dL (6.3-8.2) 12/11/18 21:30 3.4 g/dL (3.9-5) L 12/11/18 21:30 0.8 % 12/11/18 21:30 Triglycerides 123 mg/dL (2-149) 12/12/18 00:35 Cholesterol 88 mg/dL (50-199) 12/12/18 00:35 39 mg/dL (50-130) L 12/12/18 00:35 41 mg/dL (40-59) 12/12/18 00:35 2.14 % 12/12/18 00:35 Vitamin B12 702.1 pg/mL (211-911) 12/15/18 10:29 13.86 ng/mL (7.3-26.0) 12/15/18 10:35 RBC Folic Acid >1000 ng/mL (>280) 12/15/18 10:29 TSH 7.660 mlU/mL (0.270-4.200) H 12/15/18 10:29 Free T4 0.81 ng/dL (0.76-1.46) 12/15/18 10:29 Yellow (Yellow) 12/17/18 21:00 Clear (Clear) 12/17/18 21:00 6.0 (5.0-7.0) 12/17/18 21:00 Ur Specific [place] 1.012 (1.003-1.030) 12/17/18 21:00 <15 mg/dl mg/dL (Negative) 12/17/18 21:00 Neg mg/dL (Negative) 12/17/18 21:00 Neg mg/dL (Negative) 12/17/18 21:00 Neg (Negative) 12/17/18 21:00 Neg (Negative) 12/17/18 21:00 Neg (Negative) 12/17/18 21:00 4.0 mg/dL (<2.0) 12/17/18 21:00 Ur Leukocyte Esterase Mod (Negative) 12/17/18 21:00 26.0 /HPF (0.0-6.0) H 12/17/18 21:00 3.0 /HPF (0.0-6.0) 12/17/18 21:00 U Epithel Cells (Auto) 1.0 /HPF (0-13.0) 12/17/18 21:00 Hyaline Casts 1 /LPF 12/11/18 23:31 Few /HPF 12/17/18 21:00 Presumptive negative 12/11/18 23:31 Presumptive negative 12/11/18 23:31 Ur Barbiturates Screen Presumptive negative 12/11/18 23:31 Ur Phencyclidine Scrn Presumptive negative 12/11/18 23:31 Ur Amphetamines Screen Presumptive negative 12/11/18 23:31 U Benzodiazepines Scrn Presumptive negative 12/11/18 23:31 Presumptive negative 12/11/18 23:31 U Marijuana (THC) Screen Presumptive negative 12/11/18 23:31 Disclamer 12/11/18 23:31 Heparin-induced Plt Ab Negative (Negative) 12/15/18 10:29 UF Heparin High Dose 12 % Release 12/15/18 10:29 EMILY UFH Low Dose 0.1 14 % Release 12/15/18 10:29 EMILY UFH Low Dose 0.5 13 % Release 12/15/18 10:29 Active Medications - Current Medications Current Medications: Generic Name Dose Route Start Last Admin Trade Name Freq PRN Reason Stop Dose Admin Acetaminophen 650 mg 12/12/18 00:38 12/19/18 06:03 Tylenol PO 650 mg Q4H PRN Administration Pain MILD(1-3)/Fever >100.5/STAPLES Albuterol 2.5 mg 12/16/18 21:01 12/18/18 11:38 Proventil IH 2.5 mg Q4HRT PRN Administration Shortness Of Breath Aspirin 81 mg 12/17/18 10:00 12/19/18 09:30 Baby Aspirin PO 81 mg QDAY KAVITHA Administration Atorvastatin Calcium 40 mg 12/16/18 22:00 12/18/18 22:15 Lipitor PO 40 mg QHS KAVITHA Administration Buspirone HCl 10 mg 12/16/18 22:00 12/19/18 09:30 Buspar PO 10 mg BID KAVITHA Administration Carvedilol 6.25 mg 12/14/18 10:30 12/19/18 09:28 Coreg PO 6.25 mg BID KAVITHA Administration Clopidogrel Bisulfate 75 mg 12/17/18 10:00 12/19/18 09:29 Plavix PO 75 mg QDAY KAVITHA Administration Donepezil HCl 5 mg 12/17/18 10:00 12/19/18 09:29 Aricept PO 5 mg QDAY KAVITHA Administration Escitalopram Oxalate 20 mg 12/17/18 10:00 12/19/18 09:29 Lexapro PO 20 mg DAILY KAVITHA Administration Famotidine 20 mg 12/15/18 10:00 12/19/18 09:29 Pepcid PO 20 mg DAILY KAVITHA Administration Fluticasone Propionate 50 mcg 12/17/18 17:00 12/19/18 09:30 Flonase NS 50 mcg QDAY KAVITAH Administration Hydrophilic Ointment 1 applic 12/11/18 21:59 Vaseline Lip Therapy TP Q2HR PRN Dry Lips Aztreonam 1 gm in 50 mls @ 50 mls/hr 12/19/18 16:00 12/19/18 15:46 Azactam/Ns 1 Gm/50 Ml IV 50 mls/hr Q8H KAVITHA Administration Protocol Isosorbide Mononitrate 30 mg 12/16/18 12:00 12/19/18 09:30 Imdur PO 30 mg QDAY KAVITHA Administration Lactulose 10 gm 12/17/18 17:00 12/19/18 15:47 Cephulac PO 10 gm TID KAVITHA Administration Levothyroxine Sodium 50 mcg 12/17/18 06:00 12/19/18 06:02 Synthroid PO 50 mcg QAM@0600 KAVITHA Administration Memantine 10 mg 12/17/18 22:00 12/19/18 09:31 Namenda PO 10 mg BID KAVITHA Administration Midodrine 2.5 mg 12/17/18 18:00 12/19/18 09:30 Proamatine PO 2.5 mg BID KAVITHA Administration Montelukast Sodium 10 mg 12/17/18 18:00 12/18/18 18:03 Singulair PO 10 mg QPM KAVITHA Administration Morphine Sulfate 2 mg 12/14/18 11:58 12/16/18 00:49 Morphine IV 2 mg Q4H PRN Administration Pain, Moderate (4-6) Multi-Ingred Cream/Lotion/Oil/Oint 1 applic 12/11/18 21:26 Artificial Tears Ophth Oint OU Q4HR PRN Dry Eye(s) Nitroglycerin 0.4 mg 12/17/18 16:41 Nitrostat SL Q5M PRN Chest Pain Nortriptyline HCl 75 mg 12/17/18 10:00 12/19/18 09:29 Pamelor PO 75 mg DAILY KAVITHA Administration Ondansetron HCl 4 mg 12/12/18 00:38 Zofran IV Q8H PRN Nausea And Vomiting Sodium Chloride 10 ml 12/12/18 10:00 12/19/18 09:31 Sodium Chloride Flush Syringe 10 Ml IV 10 ml BID KAVITHA Administration Sodium Chloride 10 ml 12/12/18 00:38 Sodium Chloride Flush Syringe 10 Ml IV PRN PRN LINE FLUSH Nutrition/Malnutrition Assess - Dietary Evaluation Nutrition/Malnutrition Findings: Nutrition Notes Start: 12/12/18 10:59 Freq: Status: Active Protocol: Document 12/17/18 10:18 LP (Rec: 12/17/18 10:27 LP [id number]) Nutrition Notes Need for Assessment generated from: MD Order Current Diagnosis COPD,Hypertension Other Pertinent Diagnosis Cardiac Arrest, AMI Current Diet Cardiac, GI soft Labs/Tests Reviewed Pertinent Medications Reviewed Height 5 ft 6 in Weight 63.6 kg [place] Body Weight (kg) 59.09 BMI 22.6 Subjective/Other Information Consult for poor intakes. Pt ate very little oatmeal this morning and toast. Pt states she would like fruit and does not like supplements. Burn Absent Trauma Absent #1 Nutrition Diagnosis Inadequate oral intake Diagnosis Progress(for reassessment Continues documentation) Is patient on ventilator? No Is Patient Ambulatory and/or Out of Bed No REE-([facility]-confined to bed) 1354.212 Calculation Used for Recommendations [facility] Additional Notes Protein needs: 64-76g (1-1.2g/ kg) Fluid needs are 1ml/kcal Nutrition Intervention Change Diet Order: Continue current Add Supplement/Snack (indicate name/kcal Change to Ensure clear apple /protein ) BID Provides kCal: 480 Provides Protein (gm) 16 Goal #1 Meet at least 75% of calorie and protein needs via PO and ONS intakes Anticipated Discharge Needs: Cardiac diet with ONS as needed Follow-Up By: 12/20/18 Additional Comments Follow for intakes and ONS tolerance
[2018-12-19] MEDS: SINGULAIR PO SCH (17:06)
--- NOTE | 2018-12-19 18:16 | Progress Note ---
Assessment and Plan Patient alert, awake. Following commands. Resting on 2 litres O2. O2 saturation 100%. No acute respiratory distress at rest. - Patient Problems (1) Acute respiratory failure Current Visit: Yes Status: Acute Plan to address problem: O2 2 litres via nasal canula. S/P Mehanical ventilation. Albuterol/atrovent aerosol treatments q 6 hours. SCDs Famotidine. Patient is on Azoreonam. (2) Cardiac arrest Current Visit: Yes Status: Acute Plan to address problem: Sucessful resucitation. Patient alert, awake. Resting on 2 litres O2. (3) Elevated troponin level Current Visit: Yes Status: Acute Plan to address problem: Management as per cardiology. (4) ICD (implantable cardioverter-defibrillator) discharge Current Visit: Yes Status: Acute Plan to address problem: Management as per cardiology. (5) Ischemic cardiomyopathy Current Visit: Yes Status: Acute Plan to address problem: Management as per cardiology. (6) Moderate to severe pulmonary hypertension Current Visit: Yes Status: Acute Plan to address problem: Pulmonary hypertension likely from cardiac and pulmonary disease. Treat underlying cause. (7) Right ventricular dysfunction Current Visit: Yes Status: Acute Plan to address problem: O2 supplementation Treat underlying problem. (8) Thrombocytopenia Current Visit: Yes Status: Acute Plan to address problem: Continue monitor platelets. (9) Ventricular fibrillation Current Visit: Yes Status: Acute Plan to address problem: Management as per cardiology. (10) CAD (coronary artery disease) Current Visit: Yes Status: Chronic Qualifiers: Coronary Disease-Associated Artery/Lesion type: [place] artery Plan to address problem: Management as per cardiology. (11) COPD (chronic obstructive pulmonary disease) Current Visit: Yes Status: Chronic Plan to address problem: O2 2 litres via nasal canula. S/P Mehanical ventilation. Albuterol/atrovent aerosol treatments q 6 hours. SCDs Famotidine. Patient is on Azoreonam. (12) Hypothyroidism Current Visit: Yes Status: Chronic Plan to address problem: Management as per primary care. Subjective Date of service: 12/19/18 Principal diagnosis: Ac hypoxemic resp failure; Cardiac arrest; KAYLEEN; Ac encephalopathy; NSTEMI Interval history: Patient alert, awake. Following commands. Resting on 2 litres O2. O2 saturation 100%. No acute respiratory distress at rest. Objective Vital Signs - 12hr 12/19/18 12/19/18 12/19/18 08:30 09:28 09:30 Temperature 97.9 F Pulse Rate 69 Respiratory 16 Rate Blood Pressure 133/76 133/76 133/76 O2 Sat by Pulse 100 Oximetry 12/19/18 12/19/18 12/19/18 10:00 11:27 11:52 Temperature 97.4 F L Pulse Rate 72 Respiratory 16 Rate Blood Pressure 111/57 O2 Sat by Pulse 99 96 96 Oximetry 12/19/18 15:54 Temperature 97.9 F Pulse Rate 69 Respiratory 18 Rate Blood Pressure 89/51 O2 Sat by Pulse 100 Oximetry Constitutional: no acute distress, alert, other (elderly looking AAF, normocephalic and atraumatic ) Eyes: non-icteric ENT: oropharynx moist, other (ETT 24 cm VERONICA) Neck: supple, no lymphadenopathy, no JVD Effort: mildly labored Ascultation: Bilateral: diminished breath sounds Percussion: Bilateral: not dull Cardiovascular: regular rate and rhythm, murmur noted (systyolic) Gastrointestinal: normoactive bowel sounds, soft, non-tender, non-distended Integumentary: normal Extremities: no cyanosis, no edema, pulses normal, no ischemia or petechiae Neurologic: normal mental status, non-focal exam (grossly), pupils equal and round, motor strength normal and Psychiatric: mood appropriate, affect normal CBC and BMP: 12/17/18 09:27 12/18/18 09:14 ABG, PT/INR, D-dimer: ABG POC ABG pH 7.407 (7.35-7.45) 12/19/18 11:52 POC ABG pCO2 43.3 (35-45) 12/19/18 11:52 POC ABG pO2 71 (80-105) L 12/19/18 11:52 POC ABG HCO3 27.3 (22-26 mml/L) 12/19/18 11:52 POC ABG Total CO2 29 (23-27mmol/L) 12/19/18 11:52 POC ABG O2 Sat 94 12/19/18 11:52 PT/INR, D-dimer PT 18.5 Sec. (12.2-14.9) H 12/11/18 21:30 INR 1.58 (0.87-1.13) H 12/11/18 21:30 3643.18 ng/mlDDU (0-234) H 12/11/18 21:30 Abnormal lab findings: Abnormal Labs 12/11/18 12/11/18 12/11/18 21:30 21:30 21:30 WBC RBC 3.44 L Hgb Hct RDW 17.9 H Plt Count Lymph % (Auto) [place] % (Auto) Eos % (Auto) [place] # Eos # Seg Neutrophils % Seg Neuts % (Manual) 35.0 L Lymphocytes % (Manual) 51.0 H Monocytes % (Manual) 8.0 H Eosinophils % (Manual) 5.0 H PT 18.5 H INR 1.58 H D-Dimer 3643.18 H POC ABG pH POC ABG pCO2 POC ABG pO2 Sodium 136 L Potassium 5.3 H Chloride 97.2 L Carbon Dioxide 20 L BUN 18 H Creatinine 1.4 H Glucose 137 H POC Glucose Calcium Iron Total Creatine Kinase CK-MB (CK-2) Troponin T Albumin 3.4 L LDL Cholesterol Direct TSH Urine WBC (Auto) 12/11/18 12/12/18 12/12/18 22:35 00:35 02:30 WBC RBC 3.16 L Hgb 9.2 L Hct 27.9 L RDW 17.7 H Plt Count 127 L Lymph % (Auto) [place] % (Auto) Eos % (Auto) [place] # Eos # Seg Neutrophils % 75.7 H Seg Neuts % (Manual) Lymphocytes % (Manual) Monocytes % (Manual) Eosinophils % (Manual) PT INR D-Dimer POC ABG pH POC ABG pCO2 POC ABG pO2 344 H Sodium Potassium Chloride Carbon Dioxide BUN Creatinine Glucose POC Glucose Calcium Iron Total Creatine Kinase CK-MB (CK-2) Troponin T 0.106 H* D Albumin LDL Cholesterol Direct 39 L TSH Urine WBC (Auto) 12/12/18 12/12/18 12/12/18 02:30 02:30 03:50 WBC RBC Hgb Hct RDW Plt Count Lymph % (Auto) [place] % (Auto) Eos % (Auto) [place] # Eos # Seg Neutrophils % Seg Neuts % (Manual) Lymphocytes % (Manual) Monocytes % (Manual) Eosinophils % (Manual) PT INR D-Dimer POC ABG pH 7.494 H POC ABG pCO2 POC ABG pO2 220 H Sodium Potassium Chloride Carbon Dioxide 18 L BUN 23 H Creatinine 1.4 H Glucose 189 H POC Glucose Calcium 7.5 L Iron Total Creatine Kinase 431 H CK-MB (CK-2) 6.9 H Troponin T 0.146 H* D Albumin LDL Cholesterol Direct TSH Urine WBC (Auto) 12/12/18 12/12/18 12/13/18 06:45 17:37 04:15 WBC RBC 2.84 L Hgb 8.2 L Hct 25.2 L RDW 17.9 H Plt Count 116 L Lymph % (Auto) [place] % (Auto) 8.3 H Eos % (Auto) [place] # 0.9 H Eos # Seg Neutrophils % Seg Neuts % (Manual) Lymphocytes % (Manual) Monocytes % (Manual) Eosinophils % (Manual) PT INR D-Dimer POC ABG pH POC ABG pCO2 32.4 L POC ABG pO2 Sodium Potassium Chloride Carbon Dioxide BUN Creatinine Glucose POC Glucose Calcium Iron Total Creatine Kinase 978 H CK-MB (CK-2) 9.4 H Troponin T 0.131 H* Albumin LDL Cholesterol Direct TSH Urine WBC (Auto) 12/13/18 12/14/18 12/15/18 04:15 04:20 04:13 WBC 12.4 H RBC 2.92 L 2.92 L Hgb 8.5 L 8.7 L Hct 26.2 L 26.0 L RDW 17.9 H 17.7 H Plt Count 113 L 119 L Lymph % (Auto) [place] % (Auto) 7.4 H Eos % (Auto) 6.6 H [place] # Eos # 0.6 H Seg Neutrophils % Seg Neuts % (Manual) Lymphocytes % (Manual) Monocytes % (Manual) Eosinophils % (Manual) PT INR D-Dimer POC ABG pH POC ABG pCO2 POC ABG pO2 Sodium Potassium Chloride 108.3 H Carbon Dioxide 20 L BUN 21 H Creatinine 1.3 H Glucose 109 H POC Glucose Calcium 7.9 L Iron Total Creatine Kinase CK-MB (CK-2) Troponin T Albumin LDL Cholesterol Direct TSH Urine WBC (Auto) 12/15/18 12/15/18 12/15/18 10:29 10:29 12:22 WBC RBC Hgb Hct RDW Plt Count Lymph % (Auto) [place] % (Auto) Eos % (Auto) [place] # Eos # Seg Neutrophils % Seg Neuts % (Manual) Lymphocytes % (Manual) Monocytes % (Manual) Eosinophils % (Manual) PT INR D-Dimer POC ABG pH POC ABG pCO2 POC ABG pO2 Sodium Potassium Chloride Carbon Dioxide BUN Creatinine Glucose POC Glucose 154 H Calcium Iron 36 L Total Creatine Kinase CK-MB (CK-2) Troponin T Albumin LDL Cholesterol Direct TSH 7.660 H Urine WBC (Auto) 12/15/18 12/17/18 12/17/18 15:04 09:27 09:27 WBC RBC 2.98 L Hgb 8.9 L Hct 26.4 L RDW 17.6 H Plt Count Lymph % (Auto) 36.7 H [place] % (Auto) 10.9 H Eos % (Auto) 11.4 H [place] # Eos # 0.8 H Seg Neutrophils % Seg Neuts % (Manual) Lymphocytes % (Manual) Monocytes % (Manual) Eosinophils % (Manual) PT INR D-Dimer POC ABG pH POC ABG pCO2 POC ABG pO2 110 H Sodium Potassium 3.1 L D Chloride Carbon Dioxide BUN Creatinine Glucose 130 H POC Glucose Calcium Iron Total Creatine Kinase CK-MB (CK-2) Troponin T Albumin LDL Cholesterol Direct TSH Urine WBC (Auto) 12/17/18 12/18/18 12/19/18 21:00 09:14 11:31 WBC RBC Hgb Hct RDW Plt Count Lymph % (Auto) [place] % (Auto) Eos % (Auto) [place] # Eos # Seg Neutrophils % Seg Neuts % (Manual) Lymphocytes % (Manual) Monocytes % (Manual) Eosinophils % (Manual) PT INR D-Dimer POC ABG pH POC ABG pCO2 POC ABG pO2 Sodium Potassium Chloride Carbon Dioxide BUN 6 L Creatinine Glucose 112 H POC Glucose 134 H Calcium Iron Total Creatine Kinase CK-MB (CK-2) Troponin T Albumin LDL Cholesterol Direct TSH Urine WBC (Auto) 26.0 H 12/19/18 12/19/18 11:52 15:57 WBC RBC Hgb Hct RDW Plt Count Lymph % (Auto) [place] % (Auto) Eos % (Auto) [place] # Eos # Seg Neutrophils % Seg Neuts % (Manual) Lymphocytes % (Manual) Monocytes % (Manual) Eosinophils % (Manual) PT INR D-Dimer POC ABG pH POC ABG pCO2 POC ABG pO2 71 L Sodium Potassium Chloride Carbon Dioxide BUN Creatinine Glucose POC Glucose 169 H Calcium Iron Total Creatine Kinase CK-MB (CK-2) Troponin T Albumin LDL Cholesterol Direct TSH Urine WBC (Auto) Chest x-ray: report reviewed (ICD on Left. No other significant findings reported.), image reviewed Allied health notes reviewed: nursing
[2018-12-19] MEDS: PROVENTIL IH PRN (22:18)
[2018-12-20 05:35] LABS: Hematocrit 25.1 % (30.3-42.9); Hemoglobin 8.1 gm/dl (10.1-14.3); Mean Corpuscular HGB Conc 32 % (30-34); Mean Corpuscular Volume 90 fl (79-97); Platelet Count 164 K/mm3 (140-440); Red Blood Count 2.78 M/mm3 (3.65-5.03); Red Cell Distribution Width 18.5 % (13.2-15.2)
[2018-12-20 05:44] LABS: BUN/Creatinine Ratio 4; Blood Urea Nitrogen 4 mg/dL (7-17); Calcium 8.1 mg/dL (8.4-10.2); Hemolysis Index 0
[2018-12-20] MEDS: SYNTHROID PO SCH (06:47)
[2018-12-20] MEDS: TYLENOL PO PRN (06:49)
[2018-12-20] MEDS: CEPHULAC PO SCH ×3 (09:00→21:00)
[2018-12-20] MEDS: AZACTAM/NS 1 GM/50 ML 1 GM/50 ML VIAL IV SCH ×3 (09:00→23:09)
[2018-12-20] MEDS: FLONASE NS SCH (09:01)
[2018-12-20] MEDS: LEXAPRO PO SCH (09:02)
[2018-12-20] MEDS: COREG PO SCH ×2 (09:02→21:06)
[2018-12-20] MEDS: NAMENDA PO SCH ×2 (09:02→21:02)
[2018-12-20] MEDS: PROAMATINE PO SCH ×2 (09:02→21:02)
[2018-12-20] MEDS: ARICEPT PO SCH (09:03)
[2018-12-20] MEDS: PLAVIX PO SCH (09:03)
[2018-12-20] MEDS: PAMELOR PO SCH (09:03)
[2018-12-20] MEDS: BABY ASPIRIN PO SCH (09:03)
[2018-12-20] MEDS: BUSPAR PO SCH ×2 (09:03→21:02)
[2018-12-20] MEDS: PEPCID PO SCH (09:03)
[2018-12-20] MEDS: IMDUR PO SCH (09:04)
[2018-12-20] MEDS: SODIUM CHLORIDE FLUSH SYRINGE 10 ML IV SCH ×2 (09:10→21:07)
--- NOTE | 2018-12-20 09:48 | Progress Note ---
Assessment and Plan Cultures: Sputum culture 12/11/2018 normal resp brock Blood culture 12/18/2018 pending Urine culture 12/18/2018 neg Assessment: 78 y/o female with a history of COPD, coronary artery disease, hypertension, hypothyroidism, CMP s/p ICD admitted on 12/11/2018 due to 24 hour-history of generalized weakness and syncope. She came to [facility] for a basketball tournament. She was found weak and pale after some activity. She came to the ED, her ICD was not interrogated. [facility] episode of syncope. EMS was called, she was found to be in V. tach and shock 5 times, given amiodarone and was intubated here in the emergency room: 1) Cardiac arrest s/p CRP and post arrest hypotension: hypotension resolved. Found to be in V. tach and shock 5 times, given amiodarone IV 2) Respiratory failure: ? pulmonary edema. CXR and CTA negative for consolidations. Sputum culture 12/11/2018 normal resp brock, likely colonizer. 3) UTI: repeat UA c/w mild UTI Recommendations: - f/u blood and urine culture - continue aztreonam IV for UTI - Anticipate discharge on levaquin 500mg Po BID for 3 days Clinically stable, ID is signing off [facility] M: [phone] O:[phone] Subjective Date of service: 12/20/18 Principal diagnosis: Ac hypoxemic resp failure; Cardiac arrest; KAYLEEN; Ac encephalopathy; NSTEMI Interval history: Patient seen and examined. Awake. No generalized weakness or pain reported. No fevers. Objective - Exam Narrative Exam: Constitutional: Awake. Alert. No acute distress Head, Ears, Nose: Normocephalic, atraumatic. External ears, nose normal Eyes: Conjunctivae/corneas clear. No icterus. No ptosis. Neck: Supple, no meningeal signs Cardiovascular: S1, S2 normal. AICD site non tender Respiratory: Good air entry, clear to auscultation bilaterally GI: Soft, non-tender; bowel sounds normal. No peritoneal signs Musculoskeletal: No pedal edema, no cyanosis. Skin: No rash or abscess Hem/Lymphatic: No palpable cervical or supraclavicular nodes. No lymphangitis Psych: Mood ok. Affect normal Neurological: Awake, alert, but not oriented to time or place. - Constitutional Vitals: Vital Signs Temp Pulse Resp BP Pulse Ox 97.9 F 79 18 124/69 100 12/20/18 08:41 12/20/18 08:41 12/20/18 08:41 12/20/18 09:04 12/20/18 08:41 Temperature -Last 24 Hours Temperature 97.9 F Temperature 98.1 F Temperature 98.6 F Temperature 98.2 F Temperature 97.9 F Temperature 97.4 F - Labs CBC & Chem 7: 12/20/18 04:52 12/20/18 04:52 Labs: Abnormal lab results 12/19/18 12/19/18 12/19/18 Range/Units 11:31 11:52 15:57 RBC (3.65-5.03) M/mm3 Hgb (10.1-14.3) gm/dl Hct (30.3-42.9) % RDW (13.2-15.2) % POC ABG pO2 71 L (80-105) BUN (7-17) mg/dL POC Glucose 134 H 169 H (70-105) Calcium (8.4-10.2) mg/dL 12/20/18 12/20/18 Range/Units 04:52 04:52 RBC 2.78 L (3.65-5.03) M/mm3 Hgb 8.1 L (10.1-14.3) gm/dl Hct 25.1 L (30.3-42.9) % RDW 18.5 H (13.2-15.2) % POC ABG pO2 (80-105) BUN 4 L (7-17) mg/dL POC Glucose (70-105) Calcium 8.1 L (8.4-10.2) mg/dL
--- NOTE | 2018-12-20 13:51 | Progress Note ---
Assessment and Plan Patient sleeping at this time on 2 litres O2. O2 saturation 96%.Patient easily arousable. No acute respiratory distress - Patient Problems (1) Acute respiratory failure Current Visit: Yes Status: Acute Plan to address problem: O2 2 litres via nasal canula. S/P Mehanical ventilation. Albuterol/atrovent aerosol treatments q 6 hours. SCDs Famotidine. Patient is on Azoreonam. (2) Cardiac arrest Current Visit: Yes Status: Acute Plan to address problem: Sucessful resucitation. No acute respiratory distress. Resting on 2 litres O2. (3) Elevated troponin level Current Visit: Yes Status: Acute Plan to address problem: Management as per cardiology. (4) ICD (implantable cardioverter-defibrillator) discharge Current Visit: Yes Status: Acute Plan to address problem: Management as per cardiology. (5) Ischemic cardiomyopathy Current Visit: Yes Status: Acute Plan to address problem: Management as per cardiology. (6) Moderate to severe pulmonary hypertension Current Visit: Yes Status: Chronic Plan to address problem: Pulmonary hypertension likely from cardiac and pulmonary disease. Treat underlying cause. (7) Right ventricular dysfunction Current Visit: Yes Status: Acute Plan to address problem: O2 supplementation Treat underlying problem. (8) Thrombocytopenia Current Visit: Yes Status: Acute Plan to address problem: Continue monitor platelets. (9) Ventricular fibrillation Current Visit: Yes Status: Acute Plan to address problem: Management as per cardiology. (10) CAD (coronary artery disease) Current Visit: Yes Status: Chronic Qualifiers: Coronary Disease-Associated Artery/Lesion type: [place] artery Plan to address problem: Management as per cardiology. (11) COPD (chronic obstructive pulmonary disease) Current Visit: Yes Status: Chronic Plan to address problem: O2 2 litres via nasal canula. S/P Mehanical ventilation. Albuterol/atrovent aerosol treatments q 6 hours. SCDs Famotidine. Patient is on Azoreonam. (12) Hypothyroidism Current Visit: Yes Status: Chronic Plan to address problem: Management as per primary care. Subjective Date of service: 12/20/18 Principal diagnosis: Ac hypoxemic resp failure; Cardiac arrest; KAYLEEN; Ac encephalopathy; NSTEMI Interval history: Patient sleeping at this time on 2 litres O2. O2 saturation 96%.Patient easily arousable. No acute respiratory distress Objective Vital Signs - 12hr 07/12/20/18 12/20/18 02:24 05:07 05:09 Temperature 98.1 F Pulse Rate 81 Respiratory 18 Rate Blood Pressure 123/67 130/72 O2 Sat by Pulse 100 Oximetry 12/20/18 12/20/18 12/20/18 08:41 09:02 09:04 Temperature 97.9 F Pulse Rate 79 Respiratory 18 Rate Blood Pressure 124/69 124/69 124/69 O2 Sat by Pulse 100 Oximetry 12/20/18 10:00 Temperature Pulse Rate Respiratory Rate Blood Pressure O2 Sat by Pulse 100 Oximetry Constitutional: no acute distress, asleep, other (elderly looking AAF, normocephalic and atraumatic ) Eyes: non-icteric ENT: oropharynx moist, other (ETT 24 cm VERONICA) Neck: supple, no lymphadenopathy, no JVD Effort: mildly labored Ascultation: Bilateral: diminished breath sounds Percussion: Bilateral: not dull Cardiovascular: regular rate and rhythm, murmur noted (systyolic) Gastrointestinal: normoactive bowel sounds, soft, non-tender, non-distended Integumentary: normal Extremities: no cyanosis, no edema, pulses normal, no ischemia or petechiae Neurologic: normal mental status, non-focal exam (grossly), pupils equal and round, motor strength normal and Psychiatric: mood appropriate, affect normal CBC and BMP: 12/20/18 04:52 12/20/18 04:52 ABG, PT/INR, D-dimer: ABG POC ABG pH 7.407 (7.35-7.45) 12/19/18 11:52 POC ABG pCO2 43.3 (35-45) 12/19/18 11:52 POC ABG pO2 71 (80-105) L 12/19/18 11:52 POC ABG HCO3 27.3 (22-26 mml/L) 12/19/18 11:52 POC ABG Total CO2 29 (23-27mmol/L) 12/19/18 11:52 POC ABG O2 Sat 94 12/19/18 11:52 PT/INR, D-dimer PT 18.5 Sec. (12.2-14.9) H 12/11/18 21:30 INR 1.58 (0.87-1.13) H 12/11/18 21:30 3643.18 ng/mlDDU (0-234) H 12/11/18 21:30 Abnormal lab findings: Abnormal Labs 12/11/18 12/11/18 12/11/18 21:30 21:30 21:30 WBC RBC 3.44 L Hgb Hct RDW 17.9 H Plt Count Lymph % (Auto) [place] % (Auto) Eos % (Auto) [place] # Eos # Seg Neutrophils % Seg Neuts % (Manual) 35.0 L Lymphocytes % (Manual) 51.0 H Monocytes % (Manual) 8.0 H Eosinophils % (Manual) 5.0 H PT 18.5 H INR 1.58 H D-Dimer 3643.18 H POC ABG pH POC ABG pCO2 POC ABG pO2 Sodium 136 L Potassium 5.3 H Chloride 97.2 L Carbon Dioxide 20 L BUN 18 H Creatinine 1.4 H Glucose 137 H POC Glucose Calcium Iron Total Creatine Kinase CK-MB (CK-2) Troponin T Albumin 3.4 L LDL Cholesterol Direct TSH Urine WBC (Auto) 12/11/18 12/12/18 12/12/18 22:35 00:35 02:30 WBC RBC 3.16 L Hgb 9.2 L Hct 27.9 L RDW 17.7 H Plt Count 127 L Lymph % (Auto) [place] % (Auto) Eos % (Auto) [place] # Eos # Seg Neutrophils % 75.7 H Seg Neuts % (Manual) Lymphocytes % (Manual) Monocytes % (Manual) Eosinophils % (Manual) PT INR D-Dimer POC ABG pH POC ABG pCO2 POC ABG pO2 344 H Sodium Potassium Chloride Carbon Dioxide BUN Creatinine Glucose POC Glucose Calcium Iron Total Creatine Kinase CK-MB (CK-2) Troponin T 0.106 H* D Albumin LDL Cholesterol Direct 39 L TSH Urine WBC (Auto) 12/12/18 12/12/18 12/12/18 02:30 02:30 03:50 WBC RBC Hgb Hct RDW Plt Count Lymph % (Auto) [place] % (Auto) Eos % (Auto) [place] # Eos # Seg Neutrophils % Seg Neuts % (Manual) Lymphocytes % (Manual) Monocytes % (Manual) Eosinophils % (Manual) PT INR D-Dimer POC ABG pH 7.494 H POC ABG pCO2 POC ABG pO2 220 H Sodium Potassium Chloride Carbon Dioxide 18 L BUN 23 H Creatinine 1.4 H Glucose 189 H POC Glucose Calcium 7.5 L Iron Total Creatine Kinase 431 H CK-MB (CK-2) 6.9 H Troponin T 0.146 H* D Albumin LDL Cholesterol Direct TSH Urine WBC (Auto) 12/12/18 12/12/18 12/13/18 06:45 17:37 04:15 WBC RBC 2.84 L Hgb 8.2 L Hct 25.2 L RDW 17.9 H Plt Count 116 L Lymph % (Auto) [place] % (Auto) 8.3 H Eos % (Auto) [place] # 0.9 H Eos # Seg Neutrophils % Seg Neuts % (Manual) Lymphocytes % (Manual) Monocytes % (Manual) Eosinophils % (Manual) PT INR D-Dimer POC ABG pH POC ABG pCO2 32.4 L POC ABG pO2 Sodium Potassium Chloride Carbon Dioxide BUN Creatinine Glucose POC Glucose Calcium Iron Total Creatine Kinase 978 H CK-MB (CK-2) 9.4 H Troponin T 0.131 H* Albumin LDL Cholesterol Direct TSH Urine WBC (Auto) 12/13/18 12/14/18 12/15/18 04:15 04:20 04:13 WBC 12.4 H RBC 2.92 L 2.92 L Hgb 8.5 L 8.7 L Hct 26.2 L 26.0 L RDW 17.9 H 17.7 H Plt Count 113 L 119 L Lymph % (Auto) [place] % (Auto) 7.4 H Eos % (Auto) 6.6 H [place] # Eos # 0.6 H Seg Neutrophils % Seg Neuts % (Manual) Lymphocytes % (Manual) Monocytes % (Manual) Eosinophils % (Manual) PT INR D-Dimer POC ABG pH POC ABG pCO2 POC ABG pO2 Sodium Potassium Chloride 108.3 H Carbon Dioxide 20 L BUN 21 H Creatinine 1.3 H Glucose 109 H POC Glucose Calcium 7.9 L Iron Total Creatine Kinase CK-MB (CK-2) Troponin T Albumin LDL Cholesterol Direct TSH Urine WBC (Auto) 12/15/18 12/15/18 12/15/18 10:29 10:29 12:22 WBC RBC Hgb Hct RDW Plt Count Lymph % (Auto) [place] % (Auto) Eos % (Auto) [place] # Eos # Seg Neutrophils % Seg Neuts % (Manual) Lymphocytes % (Manual) Monocytes % (Manual) Eosinophils % (Manual) PT INR D-Dimer POC ABG pH POC ABG pCO2 POC ABG pO2 Sodium Potassium Chloride Carbon Dioxide BUN Creatinine Glucose POC Glucose 154 H Calcium Iron 36 L Total Creatine Kinase CK-MB (CK-2) Troponin T Albumin LDL Cholesterol Direct TSH 7.660 H Urine WBC (Auto) 12/15/18 12/17/18 12/17/18 15:04 09:27 09:27 WBC RBC 2.98 L Hgb 8.9 L Hct 26.4 L RDW 17.6 H Plt Count Lymph % (Auto) 36.7 H [place] % (Auto) 10.9 H Eos % (Auto) 11.4 H [place] # Eos # 0.8 H Seg Neutrophils % Seg Neuts % (Manual) Lymphocytes % (Manual) Monocytes % (Manual) Eosinophils % (Manual) PT INR D-Dimer POC ABG pH POC ABG pCO2 POC ABG pO2 110 H Sodium Potassium 3.1 L D Chloride Carbon Dioxide BUN Creatinine Glucose 130 H POC Glucose Calcium Iron Total Creatine Kinase CK-MB (CK-2) Troponin T Albumin LDL Cholesterol Direct TSH Urine WBC (Auto) 12/17/18 12/18/18 12/19/18 21:00 09:14 11:31 WBC RBC Hgb Hct RDW Plt Count Lymph % (Auto) [place] % (Auto) Eos % (Auto) [place] # Eos # Seg Neutrophils % Seg Neuts % (Manual) Lymphocytes % (Manual) Monocytes % (Manual) Eosinophils % (Manual) PT INR D-Dimer POC ABG pH POC ABG pCO2 POC ABG pO2 Sodium Potassium Chloride Carbon Dioxide BUN 6 L Creatinine Glucose 112 H POC Glucose 134 H Calcium Iron Total Creatine Kinase CK-MB (CK-2) Troponin T Albumin LDL Cholesterol Direct TSH Urine WBC (Auto) 26.0 H 12/19/18 12/19/18 12/20/18 11:52 15:57 04:52 WBC RBC 2.78 L Hgb 8.1 L Hct 25.1 L RDW 18.5 H Plt Count Lymph % (Auto) [place] % (Auto) Eos % (Auto) [place] # Eos # Seg Neutrophils % Seg Neuts % (Manual) Lymphocytes % (Manual) Monocytes % (Manual) Eosinophils % (Manual) PT INR D-Dimer POC ABG pH POC ABG pCO2 POC ABG pO2 71 L Sodium Potassium Chloride Carbon Dioxide BUN Creatinine Glucose POC Glucose 169 H Calcium Iron Total Creatine Kinase CK-MB (CK-2) Troponin T Albumin LDL Cholesterol Direct TSH Urine WBC (Auto) 12/20/18 12/20/18 04:52 12:09 WBC RBC Hgb Hct RDW Plt Count Lymph % (Auto) [place] % (Auto) Eos % (Auto) [place] # Eos # Seg Neutrophils % Seg Neuts % (Manual) Lymphocytes % (Manual) Monocytes % (Manual) Eosinophils % (Manual) PT INR D-Dimer POC ABG pH POC ABG pCO2 POC ABG pO2 Sodium Potassium Chloride Carbon Dioxide BUN 4 L Creatinine Glucose POC Glucose 212 H Calcium 8.1 L Iron Total Creatine Kinase CK-MB (CK-2) Troponin T Albumin LDL Cholesterol Direct TSH Urine WBC (Auto) Allied health notes reviewed: nursing
[2018-12-20] MEDS: SINGULAIR PO SCH (17:08)
--- NOTE | 2018-12-20 17:17 | Progress Note ---
Assessment and Plan - Patient Problems (1) Acute respiratory failure Current Visit: Yes Status: Acute Plan to address problem: Acute respiratory failure patient now extubated. Hemodynamically stable. The main problem now is debility. Physical therapy exam to see if patient can be discharged home versus custodial facility. (2) Cardiac arrest Current Visit: Yes Status: Acute Plan to address problem: Patient anticoagulation aspirin Plavix afterload reducers nitrates. Patient is without any arrhythmia greater than 48 hours. May benefit from change in AV bisi blocking agent. Discussed with cardiology. (3) Moderate to severe pulmonary hypertension Current Visit: Yes Status: Chronic (4) Hypothyroidism Current Visit: Yes Status: Chronic Plan to address problem: St. currently asymptomatic resume Synthroid. (5) Dementia Current Visit: Yes Status: Acute Plan to address problem: Patient hold his best stable M maintains fair cognition for dementia. Continue Namenda aricept (6) COPD (chronic obstructive pulmonary disease) Current Visit: Yes Status: Acute Plan to address problem: Continue nebulizes empiric antibiotic stools. Obtain old EKG change antibiotics at this time to by mouth foot plan discharge. History Interval history: Patient today states she feels better. Daughter bed side Patient was able to get up by herself and use the bathroom. 78 years old coronary disease hypertension hypothyroidism COPD came in status post cardiorespiratory arrest patient's chart amiodarone intubated her since been extubated for acute hypoxic respiratory failure. Now hemodynamically stable and saturating well. Patient became hypotensive yesterday. Was anticipated discharge. Plan was to have physical therapy evaluate patient for transfer to custodial facility versus home. Hospitalist Physical - Constitutional Vitals: Temp Pulse Resp BP Pulse Ox 97.9 F 79 18 124/69 100 12/20/18 08:41 12/20/18 08:41 12/20/18 08:41 12/20/18 09:04 12/20/18 10:00 General appearance: Present: no acute distress, other (unresponsive, orally intubated on mechanical ventilation) - EENT Eyes: Present: PERRL, EOM intact ENT: hearing intact, clear oral mucosa, dentition normal - Neck Neck: Present: supple, normal ROM - Respiratory Respiratory: bilateral: diminished - Cardiovascular Rhythm: regular - Extremities Extremities: no ischemia, pulses intact, pulses symmetrical, No edema, normal temperature Peripheral Pulses: within normal limits - Abdominal General gastrointestinal: soft, non-tender, non-distended, normal bowel sounds, no hepatomegaly, no splenomegaly - Integumentary Integumentary: Present: clear, warm, dry - Psychiatric Psychiatric: appropriate mood/affect, other (minimal cognitive impairment) - Neurologic Neurologic: CNII-XII intact, no focal deficits, moves all extremities Results - Labs CBC & Chem 7: 12/20/18 04:52 12/20/18 04:52 Labs: Laboratory Last Values WBC 7.1 K/mm3 (4.5-11.0) 12/20/18 04:52 RBC 2.78 M/mm3 (3.65-5.03) L 12/20/18 04:52 Hgb 8.1 gm/dl (10.1-14.3) L 12/20/18 04:52 Hct 25.1 % (30.3-42.9) L 12/20/18 04:52 MCV 90 fl (79-97) 12/20/18 04:52 MCH 29 pg (28-32) 12/20/18 04:52 MCHC 32 % (30-34) 12/20/18 04:52 RDW 18.5 % (13.2-15.2) H 12/20/18 04:52 Plt Count 164 K/mm3 (140-440) 12/20/18 04:52 Lymph % (Auto) 36.7 % (13.4-35.0) H 12/17/18 09:27 [place] % (Auto) 10.9 % (0.0-7.3) H 12/17/18 09:27 Eos % (Auto) 11.4 % (0.0-4.3) H 12/17/18 09:27 Baso % (Auto) 0.5 % (0.0-1.8) 12/17/18 09:27 Lymph # 2.6 K/mm3 (1.2-5.4) 12/17/18 09:27 [place] # 0.8 K/mm3 (0.0-0.8) 12/17/18 09:27 Eos # 0.8 K/mm3 (0.0-0.4) H 12/17/18 09:27 Baso # 0.0 K/mm3 (0.0-0.1) 12/17/18 09:27 Add Manual Diff Complete 12/11/18 21:30 Total Counted 100 12/11/18 21:30 Seg Neutrophils % 40.5 % (40.0-70.0) 12/17/18 09:27 Seg Neuts % (Manual) 35.0 % (40.0-70.0) L 12/11/18 21:30 0 % 12/11/18 21:30 51.0 % (13.4-35.0) H 12/11/18 21:30 Reactive Lymphs % (Man) 0 % 12/11/18 21:30 8.0 % (0.0-7.3) H 12/11/18 21:30 5.0 % (0.0-4.3) H 12/11/18 21:30 1.0 % (0.0-1.8) 12/11/18 21:30 0 % 12/11/18 21:30 0 % 12/11/18 21:30 0 % 12/11/18 21:30 0 % 12/11/18 21:30 Nucleated RBC % Not Reportable 12/11/18 21:30 Seg Neutrophils # 2.9 K/mm3 (1.8-7.7) 12/17/18 09:27 Seg Neutrophils # Man 2.7 K/mm3 (1.8-7.7) 12/11/18 21:30 Band Neutrophils # 0.0 K/mm3 12/11/18 21:30 3.9 K/mm3 (1.2-5.4) 12/11/18 21:30 Abs React Lymphs (Man) 0.0 K/mm3 12/11/18 21:30 0.6 K/mm3 (0.0-0.8) 12/11/18 21:30 0.4 K/mm3 (0.0-0.4) 12/11/18 21:30 0.1 K/mm3 (0.0-0.1) 12/11/18 21:30 0.0 K/mm3 12/11/18 21:30 0.0 K/mm3 12/11/18 21:30 0.0 K/mm3 12/11/18 21:30 Blast Cells # 0.0 K/mm3 12/11/18 21:30 WBC Morphology Not Reportable 12/11/18 21:30 Hypersegmented Neuts Not Reportable 12/11/18 21:30 Hyposegmented Neuts Not Reportable 12/11/18 21:30 Hypogranular Neuts Not Reportable 12/11/18 21:30 Not Reportable 12/11/18 21:30 Not Reportable 12/11/18 21:30 Not Reportable 12/11/18 21:30 Not Reportable 12/11/18 21:30 Not Reportable 12/11/18 21:30 Not Reportable 12/11/18 21:30 Consistent w auto 12/11/18 21:30 Not Reportable 12/11/18 21:30 Plt Clumps, EDTA Not Reportable 12/11/18 21:30 Few 12/11/18 21:30 Not Reportable 12/11/18 21:30 Not Reportable 12/11/18 21:30 Plt Morphology Comment Not Reportable 12/11/18 21:30 RBC Morphology Not Reportable 12/11/18 21:30 Dimorphic RBCs Not Reportable 12/11/18 21:30 Not Reportable 12/11/18 21:30 Not Reportable 12/11/18 21:30 Not Reportable 12/11/18 21:30 1+ 12/11/18 21:30 Not Reportable 12/11/18 21:30 Not Reportable 12/11/18 21:30 Not Reportable 12/11/18 21:30 Not Reportable 12/11/18 21:30 Not Reportable 12/11/18 21:30 Not Reportable 12/11/18 21:30 Not Reportable 12/11/18 21:30 Few 12/11/18 21:30 Not Reportable 12/11/18 21:30 Not Reportable 12/11/18 21:30 Not Reportable 12/11/18 21:30 Not Reportable 12/11/18 21:30 Not Reportable 12/11/18 21:30 Not Reportable 12/11/18 21:30 Not Reportable 12/11/18 21:30 Acanthocytes (Spur) Not Reportable 12/11/18 21:30 Rouleaux Not Reportable 12/11/18 21:30 Not Reportable 12/11/18 21:30 Not Reportable 12/11/18 21:30 Not Reportable 12/11/18 21:30 Not Reportable 12/11/18 21:30 Hem Pathologist Commnt No 12/11/18 21:30 PT 18.5 Sec. (12.2-14.9) H 12/11/18 21:30 INR 1.58 (0.87-1.13) H 12/11/18 21:30 APTT 31.5 Sec. (24.2-36.6) 12/11/18 21:30 3643.18 ng/mlDDU (0-234) H 12/11/18 21:30 Heparin Anti-Xa, Unfract Negative (Negative) 12/15/18 10:29 POC ABG pH 7.407 (7.35-7.45) 12/19/18 11:52 POC ABG pCO2 43.3 (35-45) 12/19/18 11:52 POC ABG pO2 71 (80-105) L 12/19/18 11:52 POC ABG HCO3 27.3 (22-26 mml/L) 12/19/18 11:52 POC ABG Total CO2 29 (23-27mmol/L) 12/19/18 11:52 POC ABG O2 Sat 94 12/19/18 11:52 POC ABG Base Excess 3 ((-2) - (+3)mmol/L) 12/19/18 11:52 21 % 12/19/18 11:52 Sodium 142 mmol/L (137-145) 12/20/18 04:52 Potassium 3.8 mmol/L (3.6-5.0) 12/20/18 04:52 Chloride 105.7 mmol/L (98-107) 12/20/18 04:52 Carbon Dioxide 27 mmol/L (22-30) 12/20/18 04:52 13 mmol/L 12/20/18 04:52 BUN 4 mg/dL (7-17) L 12/20/18 04:52 0.9 mg/dL (0.7-1.2) 12/20/18 04:52 Estimated GFR > 60 ml/min 12/20/18 04:52 4 % 12/20/18 04:52 Glucose 95 mg/dL (65-100) 12/20/18 04:52 POC Glucose 212 (70-105) H 12/20/18 12:09 Calcium 8.1 mg/dL (8.4-10.2) L 12/20/18 04:52 Magnesium 1.70 mg/dL (1.7-2.3) 12/18/18 09:14 Iron 36 ug/dL (37-170) L 12/15/18 10:29 TIBC 251 mcg/dL (250-450) 12/15/18 10:29 79.9 ng/mL (13.0-400.0) 12/15/18 10:29 0.30 mg/dL (0.1-1.2) 12/11/18 21:30 AST 35 units/L (5-40) 12/11/18 21:30 ALT 12 units/L (7-56) 12/11/18 21:30 85 units/L (35-129) 12/11/18 21:30 978 units/L (30-135) H 12/12/18 06:45 CK-MB (CK-2) 9.4 ng/mL (0.0-4.0) H 12/12/18 06:45 CK-MB (CK-2) Rel Index 0.9 (0-4) 12/12/18 06:45 0.131 ng/mL (0.00-0.029) H* 12/12/18 06:45 7.5 g/dL (6.3-8.2) 12/11/18 21:30 3.4 g/dL (3.9-5) L 12/11/18 21:30 0.8 % 12/11/18 21:30 Triglycerides 123 mg/dL (2-149) 12/12/18 00:35 Cholesterol 88 mg/dL (50-199) 12/12/18 00:35 39 mg/dL (50-130) L 12/12/18 00:35 41 mg/dL (40-59) 12/12/18 00:35 2.14 % 12/12/18 00:35 Vitamin B12 702.1 pg/mL (211-911) 12/15/18 10:29 13.86 ng/mL (7.3-26.0) 12/15/18 10:35 RBC Folic Acid >1000 ng/mL (>280) 12/15/18 10:29 TSH 7.660 mlU/mL (0.270-4.200) H 12/15/18 10:29 Free T4 0.81 ng/dL (0.76-1.46) 12/15/18 10:29 Yellow (Yellow) 12/17/18 21:00 Clear (Clear) 12/17/18 21:00 6.0 (5.0-7.0) 12/17/18 21:00 Ur Specific [place] 1.012 (1.003-1.030) 12/17/18 21:00 <15 mg/dl mg/dL (Negative) 12/17/18 21:00 Neg mg/dL (Negative) 12/17/18 21:00 Neg mg/dL (Negative) 12/17/18 21:00 Neg (Negative) 12/17/18 21:00 Neg (Negative) 12/17/18 21:00 Neg (Negative) 12/17/18 21:00 4.0 mg/dL (<2.0) 12/17/18 21:00 Ur Leukocyte Esterase Mod (Negative) 12/17/18 21:00 26.0 /HPF (0.0-6.0) H 12/17/18 21:00 3.0 /HPF (0.0-6.0) 12/17/18 21:00 U Epithel Cells (Auto) 1.0 /HPF (0-13.0) 12/17/18 21:00 Hyaline Casts 1 /LPF 12/11/18 23:31 Few /HPF 12/17/18 21:00 Presumptive negative 12/11/18 23:31 Presumptive negative 12/11/18 23:31 Ur Barbiturates Screen Presumptive negative 12/11/18 23:31 Ur Phencyclidine Scrn Presumptive negative 12/11/18 23:31 Ur Amphetamines Screen Presumptive negative 12/11/18 23:31 U Benzodiazepines Scrn Presumptive negative 12/11/18 23:31 Presumptive negative 12/11/18 23:31 U Marijuana (THC) Screen Presumptive negative 12/11/18 23:31 Disclamer 12/11/18 23:31 Heparin-induced Plt Ab Negative (Negative) 12/15/18 10:29 UF Heparin High Dose 12 % Release 12/15/18 10:29 EMILY UFH Low Dose 0.1 14 % Release 12/15/18 10:29 EMILY UFH Low Dose 0.5 13 % Release 12/15/18 10:29 Active Medications - Current Medications Current Medications: Generic Name Dose Route Start Last Admin Trade Name Freq PRN Reason Stop Dose Admin Acetaminophen 650 mg 12/12/18 00:38 12/20/18 06:49 Tylenol PO 650 mg Q4H PRN Administration Pain MILD(1-3)/Fever >100.5/STAPLES Albuterol 2.5 mg 12/16/18 21:01 12/19/18 22:18 Proventil IH 2.5 mg Q4HRT PRN Administration Shortness Of Breath Aspirin 81 mg 12/17/18 10:00 12/20/18 09:03 Baby Aspirin PO 81 mg QDAY KAVITHA Administration Atorvastatin Calcium 40 mg 12/16/18 22:00 12/19/18 21:54 Lipitor PO 40 mg QHS KAVITHA Administration Buspirone HCl 10 mg 12/16/18 22:00 12/20/18 09:03 Buspar PO 10 mg BID KAVITHA Administration Carvedilol 6.25 mg 12/14/18 10:30 12/20/18 09:02 Coreg PO 6.25 mg BID KAVITHA Administration Clopidogrel Bisulfate 75 mg 12/17/18 10:00 12/20/18 09:03 Plavix PO 75 mg QDAY KAVITHA Administration Donepezil HCl 5 mg 12/17/18 10:00 12/20/18 09:03 Aricept PO 5 mg QDAY KAVITHA Administration Escitalopram Oxalate 20 mg 12/17/18 10:00 12/20/18 09:02 Lexapro PO 20 mg DAILY KAVITHA Administration Famotidine 20 mg 12/15/18 10:00 12/20/18 09:03 Pepcid PO 20 mg DAILY KAVITHA Administration Fluticasone Propionate 50 mcg 12/17/18 17:00 12/20/18 09:01 Flonase NS 50 mcg QDAY KAVITHA Administration Hydrophilic Ointment 1 applic 12/11/18 21:59 Vaseline Lip Therapy TP Q2HR PRN Dry Lips Aztreonam 1 gm in 50 mls @ 50 mls/hr 12/19/18 16:00 12/20/18 17:06 Azactam/Ns 1 Gm/50 Ml IV 50 mls/hr Q8H KAVITHA Administration Protocol Isosorbide Mononitrate 30 mg 12/16/18 12:00 12/20/18 09:04 Imdur PO 30 mg QDAY KAVITHA Administration Lactulose 10 gm 12/17/18 17:00 12/20/18 14:58 Cephulac PO 10 gm TID KAVITHA Administration Levothyroxine Sodium 50 mcg 12/17/18 06:00 12/20/18 06:47 Synthroid PO 50 mcg QAM@0600 KAVITHA Administration Memantine 10 mg 12/17/18 22:00 12/20/18 09:02 Namenda PO 10 mg BID KAVITHA Administration Midodrine 2.5 mg 12/17/18 18:00 12/20/18 09:02 Proamatine PO 2.5 mg BID KAVITHA Administration Montelukast Sodium 10 mg 12/17/18 18:00 12/20/18 17:08 Singulair PO 10 mg QPM KAVITHA Administration Morphine Sulfate 2 mg 12/14/18 11:58 12/16/18 00:49 Morphine IV 2 mg Q4H PRN Administration Pain, Moderate (4-6) Multi-Ingred Cream/Lotion/Oil/Oint 1 applic 12/11/18 21:26 Artificial Tears Ophth Oint OU Q4HR PRN Dry Eye(s) Nitroglycerin 0.4 mg 12/17/18 16:41 Nitrostat SL Q5M PRN Chest Pain Nortriptyline HCl 75 mg 12/17/18 10:00 12/20/18 09:03 Pamelor PO 75 mg DAILY KAVITHA Administration Ondansetron HCl 4 mg 12/12/18 00:38 Zofran IV Q8H PRN Nausea And Vomiting Sodium Chloride 10 ml 12/12/18 10:00 12/20/18 09:10 Sodium Chloride Flush Syringe 10 Ml IV 10 ml BID KAVITHA Administration Sodium Chloride 10 ml 12/12/18 00:38 Sodium Chloride Flush Syringe 10 Ml IV PRN PRN LINE FLUSH Nutrition/Malnutrition Assess - Dietary Evaluation Nutrition/Malnutrition Findings: Nutrition Notes Start: 12/12/18 10:59 Freq: Status: Active Protocol: Document 12/20/18 11:51 RM (Rec: 12/20/18 12:05 RM [id number]) Nutrition Notes Initial or Follow up Reassessment Current Diagnosis Acute Kidney Injury,COPD, Hypertension Other Pertinent Diagnosis Cardiac Arrest, AMI, Dementia Current Diet Cardiac, GI soft Labs/Tests Reviewed Pertinent Medications Reviewed Height 5 ft 6 in Weight 62.5 kg [place] Body Weight (kg) 59.09 BMI 22.2 Weight change and time frame 10.7% wt loss Subjective/Other Information Procedure being done at time of visit but pt relative was available to talk. Stated that pt ate breakfast yesterday but didn't eat lunch or dinner d/t nothing tasting right. Also stated that pt drinks half of each Ensure Clear. Percent of energy/protein needs met: 70%/56% Burn Absent Trauma Absent #1 Nutrition Diagnosis Inadequate oral intake As Evidenced by Signs and Symptoms pt meeting 70% of calorie and 56% of protein needs Diagnosis Progress(for reassessment Improved documentation) Is patient on ventilator? No Is Patient Ambulatory and/or Out of Bed No REE-([facility]-confined to bed) 1341.036 Calculation Used for Recommendations [facility] Additional Notes Protein needs: 64-81g (1-1.3g/ kg) Fluid needs are 1ml/kcal Nutrition Intervention Change Diet Order: Continue current Add Supplement/Snack (indicate name/kcal Change to Ensure clear apple /protein ) TID Provides kCal: 480 Provides Protein (gm) 16 Goal #1 Meet at least 75% of calorie and protein needs via PO and ONS intakes Anticipated Discharge Needs: Cardiac diet with ONS as needed Follow-Up By: 12/23/18 Additional Comments Follow for PO and ONS intakes
[2018-12-21] MEDS: SYNTHROID PO SCH (05:14)
[2018-12-21 10:03] VITALS: BP 131/76
[2018-12-21] MEDS: AZACTAM/NS 1 GM/50 ML 1 GM/50 ML VIAL IV SCH (10:03)
[2018-12-21] MEDS: PEPCID PO SCH (10:04)
[2018-12-21] MEDS: TYLENOL PO PRN (10:04)
[2018-12-21] MEDS: FLONASE NS SCH (10:04)
[2018-12-21] MEDS: IMDUR PO SCH (10:05)
[2018-12-21] MEDS: COREG PO SCH (10:05)
[2018-12-21] MEDS: NAMENDA PO SCH (10:05)
[2018-12-21] MEDS: PLAVIX PO SCH (10:05)
[2018-12-21] MEDS: ARICEPT PO SCH (10:05)
[2018-12-21] MEDS: PROAMATINE PO SCH (10:06)
[2018-12-21] MEDS: BABY ASPIRIN PO SCH (10:06)
[2018-12-21] MEDS: LEXAPRO PO SCH (10:06)
[2018-12-21] MEDS: PAMELOR PO SCH (10:06)
[2018-12-21] MEDS: BUSPAR PO SCH (10:06)
[2018-12-21] MEDS: SODIUM CHLORIDE FLUSH SYRINGE 10 ML IV SCH (10:07)
[2018-12-21] MEDS: CEPHULAC PO SCH ×2 (10:27→15:06)
--- NOTE | 2018-12-21 12:09 | Discharge Summary ---
Providers - Providers Date of Admission: 12/12/18 00:38 Date of discharge: 12/21/18 Attending physician: DANYA MELCHOR 12/11/18 21:26 Consult to Dietitian/Nutrition [CONS] Routine Physician Instructions: Reason For Exam: Reason for Consult: Evaluate nutritional intake 12/11/18 22:00 Consult to Dietitian/Nutrition [CONS] Routine Physician Instructions: Reason For Exam: Reason for Consult: Evaluate nutritional intake 12/12/18 00:49 Consult to Physician [CONS] Routine Comment: Consulting Provider: ANNA SILVA Physician Instructions: Reason For Exam: cc 12/12/18 00:51 Consult to Physician [CONS] Routine Comment: Consulting Provider: SUE QUINN Physician Instructions: Reason For Exam: vtac 12/12/18 13:29 Consult to Physician [CONS] Routine Comment: Consulting Provider: ELADIO COLEMAN Physician Instructions: Reason For Exam: possible sepsis / pneumonia 12/13/18 12:02 Physical Therapy Evaluation and Treat [CONS] Routine Comment: Reason For Exam: evaluate and treat 12/15/18 14:06 Physical Therapy Evaluation and Treat [CONS] Routine Comment: Reason For Exam: weakness 12/16/18 11:08 Consult to Cardiac Rehabilitation [CONS] Routine Reason For Exam: Cardiac Rehab Evaluation 12/16/18 21:02 Consult to Dietitian/Nutrition [CONS] Routine Physician Instructions: Reason For Exam: Reason for Consult: Poor oral intake Primary care physician: Dr. Peter in [place] Hospitalization Condition: Fair Pertinent studies: CT angiogram negative for PE. Echocardiogram ejection fraction 15-20% cardiac catheterization shows lesions in the distal vessels LAD recommended medical management. Hospital course: Patient is a 78-year-old with history of coronary artery disease hypertension hypothyroidism and COPD presents to the ED with chest pain status post cardiorespiratory arrest. Patient was shocked placed on amiodarone required intubation for acute respiratory failure. Patient subsequently improved. Oxygenation improved and was able to extubate patient on 12/13/2018. Patient continued to improve from there acute respiratory failure resolved. Patient was scheduled be discharged had applications of dizziness and hypoxemia prior to discharge. Patient barrier for discharge was debility. Patient had an evaluation by physical therapy and did well. Patient was able to get up and walk to the bathroom on her own. Patient is able to walk 100 feet without becoming hypoxemic. Patient was stable to transfer to [place] via airline without oxygen and wheelchair for weakness. Disposition: DC-01 TO HOME OR SELFCARE - Discharge Diagnoses (1) Acute respiratory failure Status: Acute Comment: Secondary to cardiorespiratory arrest has now resolved no wheezing. No arrhythmias for gradient for 72 hours. (2) Cardiac arrest Status: Acute Comment: Patient placed on antiplatelet medications statin beta gia and long-acting nitroglycerin. (3) Moderate to severe pulmonary hypertension Status: Chronic (4) Hypothyroidism Status: Chronic Comment: Currently asymptomatic resume Synthroid 100 g. (5) Dementia Status: Acute Comment: Mood has been stable for dementia continue aricept and namenda (6) COPD (chronic obstructive pulmonary disease) Status: Acute Comment: Nebulizers patient will require LABA not steroid dependent Core Measure Documentation - Palliative Care Palliative Care/ Comfort Measures: Not Applicable - Core Measures Any of the following diagnoses?: acute [place], heart failure - VTE Discharge Requirements Deep Vein Thrombosis/Pulmonary Embolism Present on Admission: No Has pt received <5 days of overlap therapy or INR<2.0: No Anticoagulant overlap therapy prescribed at discharge: No Contraindication No Overlap Therapy order at DC: Adverse Reaction to Drug - Acute [place] Discharge Requirements Aspirin at discharge: Yes HILARY/ARB for LVSD if EF <40%: Yes Reason for no HILARY/ARB: Allergy or sensitivity Beta gia at discharge: Yes Statin for LDL = or >100 mg/dl on DC: Yes - Heart Failure Discharge Requirements HILARY/ARB for LVSD if EF <40%: No Reason for no HILARY/ARB: Allergy or sensitivity Beta gia at discharge: Yes Exam - Constitutional Vitals: Temp Pulse Resp BP Pulse Ox 98.5 F 87 15 131/76 100 12/21/18 09:05 12/21/18 09:05 12/21/18 10:00 12/21/18 09:05 12/21/18 09:05 General appearance: Present: no acute distress, well-nourished - EENT Eyes: Present: PERRL ENT: hearing intact, clear oral mucosa - Neck Neck: Present: supple, normal ROM - Respiratory Respiratory effort: normal Respiratory: bilateral: CTA - Cardiovascular Heart Sounds: Present: S1 & S2. Absent: rub, click - Extremities Extremities: pulses symmetrical, No edema Peripheral Pulses: within normal limits - Abdominal General gastrointestinal: Present: soft, non-tender, non-distended, normal bowel sounds Female genitourinary: Present: normal - Integumentary Integumentary: Present: clear, warm, dry - Musculoskeletal Musculoskeletal: gait normal, strength equal bilaterally - Psychiatric Psychiatric: appropriate mood/affect, intact judgment & insight - Neurologic Neurologic: CNII-XII intact, moves all extremities Plan Activity: advance as tolerated Weight Bearing Status: Weight Bear as Tolerated Diet: low cholesterol, low salt Special Instructions: record daily BP diary Follow up with: PRIMARY CARE, [Referring] - 3-5 Days Prescriptions: Donepezil [Aricept] 5 mg PO QDAY #30 tablet Aspirin [Aspirin BABY CHEW TAB] 81 mg PO QDAY #30 tab.chew busPIRone [Buspar] 10 mg PO BID #60 tablet Carvedilol [Coreg] 6.25 mg PO BID #60 tablet Apixaban [Eliquis] 5 mg PO BID #30 tablet ISOSORBIDE MONOnitrate [Imdur ER] 30 mg PO QDAY #30 tablet Digoxin [Lanoxin] 0.125 mg PO DAILY #30 tablet Escitalopram [Lexapro] 20 mg PO DAILY #30 tablet AtorvaSTATin [Lipitor] 40 mg PO QHS #30 tablet Memantine [Namenda] 10 mg PO BID #30 tablet Nitroglycerin [Nitrostat] 0.4 mg SL Q5M PRN #20 tablet PRN Reason: Chest Pain Clopidogrel [Plavix] 75 mg PO QDAY #30 tablet Midodrine [Proamatine] 2.5 mg PO BID #20 tablet Levothyroxine [Synthroid] 50 mcg PO QAM #30 tablet
--- NOTE | 2018-12-21 12:49 | Progress Note ---
Assessment and Plan Patient awake and resting on 2 litres O2. O2 saturation 100%. No acute respiratory distress - Patient Problems (1) Acute respiratory failure Current Visit: Yes Status: Acute Plan to address problem: O2 2 litres via nasal canula. S/P Mehanical ventilation. Albuterol/atrovent aerosol treatments q 6 hours. SCDs Famotidine. (2) Cardiac arrest Current Visit: Yes Status: Acute Plan to address problem: Sucessful resucitation. No acute respiratory distress. Resting on 2 litres O2. (3) Elevated troponin level Current Visit: Yes Status: Acute Plan to address problem: Management as per cardiology. (4) ICD (implantable cardioverter-defibrillator) discharge Current Visit: Yes Status: Acute Plan to address problem: Management as per cardiology. (5) Ischemic cardiomyopathy Current Visit: Yes Status: Acute Plan to address problem: Management as per cardiology. (6) Moderate to severe pulmonary hypertension Current Visit: Yes Status: Chronic Plan to address problem: Pulmonary hypertension likely from cardiac and pulmonary disease. Treat underlying cause. (7) Right ventricular dysfunction Current Visit: Yes Status: Acute Plan to address problem: O2 supplementation Treat underlying problem. (8) Thrombocytopenia Current Visit: Yes Status: Acute Plan to address problem: Continue monitor platelets. (9) Ventricular fibrillation Current Visit: Yes Status: Acute Plan to address problem: Management as per cardiology. (10) CAD (coronary artery disease) Current Visit: Yes Status: Chronic Qualifiers: Coronary Disease-Associated Artery/Lesion type: [place] artery Plan to address problem: Management as per cardiology. (11) COPD (chronic obstructive pulmonary disease) Current Visit: Yes Status: Chronic Plan to address problem: O2 2 litres via nasal canula. S/P Mehanical ventilation. Albuterol/atrovent aerosol treatments q 6 hours. SCDs Famotidine. (12) Hypothyroidism Current Visit: Yes Status: Chronic Plan to address problem: Management as per primary care. Subjective Date of service: 12/21/18 Principal diagnosis: Ac hypoxemic resp failure; Cardiac arrest; KAYLEEN; Ac encephalopathy; NSTEMI Interval history: Patient awake and resting on 2 litres O2. O2 saturation 100%. No acute respiratory distress Objective Vital Signs - 12hr 12/21/18 12/21/18 12/21/18 03:50 05:30 09:05 Temperature 98.4 F 98.5 F Pulse Rate 95 H 91 H 87 Respiratory 18 18 Rate Respiratory Rate [Abdomen] Blood Pressure 111/63 131/76 O2 Sat by Pulse 94 100 Oximetry 12/21/18 12/21/18 10:00 11:04 Temperature Pulse Rate 78 Respiratory 16 Rate Respiratory 15 Rate [Abdomen] Blood Pressure O2 Sat by Pulse Oximetry Constitutional: no acute distress, alert, other (elderly looking AAF, normocephalic and atraumatic ) Eyes: non-icteric ENT: oropharynx moist, other (ETT 24 cm VERONICA) Neck: supple, no lymphadenopathy, no JVD Effort: mildly labored Ascultation: Bilateral: diminished breath sounds Percussion: Bilateral: not dull Cardiovascular: regular rate and rhythm, murmur noted (systyolic) Gastrointestinal: normoactive bowel sounds, soft, non-tender, non-distended Integumentary: normal Extremities: no cyanosis, no edema, pulses normal, no ischemia or petechiae Neurologic: normal mental status, non-focal exam (grossly), pupils equal and rou nd, motor strength normal and Psychiatric: mood appropriate, affect normal CBC and BMP: 12/20/18 04:52 12/20/18 04:52 ABG, PT/INR, D-dimer: ABG POC ABG pH 7.407 (7.35-7.45) 12/19/18 11:52 POC ABG pCO2 43.3 (35-45) 12/19/18 11:52 POC ABG pO2 71 (80-105) L 12/19/18 11:52 POC ABG HCO3 27.3 (22-26 mml/L) 12/19/18 11:52 POC ABG Total CO2 29 (23-27mmol/L) 12/19/18 11:52 POC ABG O2 Sat 94 12/19/18 11:52 PT/INR, D-dimer PT 18.5 Sec. (12.2-14.9) H 12/11/18 21:30 INR 1.58 (0.87-1.13) H 12/11/18 21:30 3643.18 ng/mlDDU (0-234) H 12/11/18 21:30 Abnormal lab findings: Abnormal Labs 12/11/18 12/11/18 12/11/18 21:30 21:30 21:30 WBC RBC 3.44 L Hgb Hct RDW 17.9 H Plt Count Lymph % (Auto) [place] % (Auto) Eos % (Auto) [place] # Eos # Seg Neutrophils % Seg Neuts % (Manual) 35.0 L Lymphocytes % (Manual) 51.0 H Monocytes % (Manual) 8.0 H Eosinophils % (Manual) 5.0 H PT 18.5 H INR 1.58 H D-Dimer 3643.18 H POC ABG pH POC ABG pCO2 POC ABG pO2 Sodium 136 L Potassium 5.3 H Chloride 97.2 L Carbon Dioxide 20 L BUN 18 H Creatinine 1.4 H Glucose 137 H POC Glucose Calcium Iron Total Creatine Kinase CK-MB (CK-2) Troponin T Albumin 3.4 L LDL Cholesterol Direct TSH Urine WBC (Auto) 12/11/18 12/12/18 12/12/18 22:35 00:35 02:30 WBC RBC 3.16 L Hgb 9.2 L Hct 27.9 L RDW 17.7 H Plt Count 127 L Lymph % (Auto) [place] % (Auto) Eos % (Auto) [place] # Eos # Seg Neutrophils % 75.7 H Seg Neuts % (Manual) Lymphocytes % (Manual) Monocytes % (Manual) Eosinophils % (Manual) PT INR D-Dimer POC ABG pH POC ABG pCO2 POC ABG pO2 344 H Sodium Potassium Chloride Carbon Dioxide BUN Creatinine Glucose POC Glucose Calcium Iron Total Creatine Kinase CK-MB (CK-2) Troponin T 0.106 H* D Albumin LDL Cholesterol Direct 39 L TSH Urine WBC (Auto) 12/12/18 12/12/18 12/12/18 02:30 02:30 03:50 WBC RBC Hgb Hct RDW Plt Count Lymph % (Auto) [place] % (Auto) Eos % (Auto) [place] # Eos # Seg Neutrophils % Seg Neuts % (Manual) Lymphocytes % (Manual) Monocytes % (Manual) Eosinophils % (Manual) PT INR D-Dimer POC ABG pH 7.494 H POC ABG pCO2 POC ABG pO2 220 H Sodium Potassium Chloride Carbon Dioxide 18 L BUN 23 H Creatinine 1.4 H Glucose 189 H POC Glucose Calcium 7.5 L Iron Total Creatine Kinase 431 H CK-MB (CK-2) 6.9 H Troponin T 0.146 H* D Albumin LDL Cholesterol Direct TSH Urine WBC (Auto) 12/12/18 12/12/18 12/13/18 06:45 17:37 04:15 WBC RBC 2.84 L Hgb 8.2 L Hct 25.2 L RDW 17.9 H Plt Count 116 L Lymph % (Auto) [place] % (Auto) 8.3 H Eos % (Auto) [place] # 0.9 H Eos # Seg Neutrophils % Seg Neuts % (Manual) Lymphocytes % (Manual) Monocytes % (Manual) Eosinophils % (Manual) PT INR D-Dimer POC ABG pH POC ABG pCO2 32.4 L POC ABG pO2 Sodium Potassium Chloride Carbon Dioxide BUN Creatinine Glucose POC Glucose Calcium Iron Total Creatine Kinase 978 H CK-MB (CK-2) 9.4 H Troponin T 0.131 H* Albumin LDL Cholesterol Direct TSH Urine WBC (Auto) 12/13/18 12/14/18 12/15/18 04:15 04:20 04:13 WBC 12.4 H RBC 2.92 L 2.92 L Hgb 8.5 L 8.7 L Hct 26.2 L 26.0 L RDW 17.9 H 17.7 H Plt Count 113 L 119 L Lymph % (Auto) [place] % (Auto) 7.4 H Eos % (Auto) 6.6 H [place] # Eos # 0.6 H Seg Neutrophils % Seg Neuts % (Manual) Lymphocytes % (Manual) Monocytes % (Manual) Eosinophils % (Manual) PT INR D-Dimer POC ABG pH POC ABG pCO2 POC ABG pO2 Sodium Potassium Chloride 108.3 H Carbon Dioxide 20 L BUN 21 H Creatinine 1.3 H Glucose 109 H POC Glucose Calcium 7.9 L Iron Total Creatine Kinase CK-MB (CK-2) Troponin T Albumin LDL Cholesterol Direct TSH Urine WBC (Auto) 12/15/18 12/15/18 12/15/18 10:29 10:29 12:22 WBC RBC Hgb Hct RDW Plt Count Lymph % (Auto) [place] % (Auto) Eos % (Auto) [place] # Eos # Seg Neutrophils % Seg Neuts % (Manual) Lymphocytes % (Manual) Monocytes % (Manual) Eosinophils % (Manual) PT INR D-Dimer POC ABG pH POC ABG pCO2 POC ABG pO2 Sodium Potassium Chloride Carbon Dioxide BUN Creatinine Glucose POC Glucose 154 H Calcium Iron 36 L Total Creatine Kinase CK-MB (CK-2) Troponin T Albumin LDL Cholesterol Direct TSH 7.660 H Urine WBC (Auto) 12/15/18 12/17/1819 15:04 09:27 09:27 WBC RBC 2.98 L Hgb 8.9 L Hct 26.4 L RDW 17.6 H Plt Count Lymph % (Auto) 36.7 H [place] % (Auto) 10.9 H Eos % (Auto) 11.4 H [place] # Eos # 0.8 H Seg Neutrophils % Seg Neuts % (Manual) Lymphocytes % (Manual) Monocytes % (Manual) Eosinophils % (Manual) PT INR D-Dimer POC ABG pH POC ABG pCO2 POC ABG pO2 110 H Sodium Potassium 3.1 L D Chloride Carbon Dioxide BUN Creatinine Glucose 130 H POC Glucose Calcium Iron Total Creatine Kinase CK-MB (CK-2) Troponin T Albumin LDL Cholesterol Direct TSH Urine WBC (Auto) 12/17/18 12/18/18 12/19/18 21:00 09:14 11:31 WBC RBC Hgb Hct RDW Plt Count Lymph % (Auto) [place] % (Auto) Eos % (Auto) [place] # Eos # Seg Neutrophils % Seg Neuts % (Manual) Lymphocytes % (Manual) Monocytes % (Manual) Eosinophils % (Manual) PT INR D-Dimer POC ABG pH POC ABG pCO2 POC ABG pO2 Sodium Potassium Chloride Carbon Dioxide BUN 6 L Creatinine Glucose 112 H POC Glucose 134 H Calcium Iron Total Creatine Kinase CK-MB (CK-2) Troponin T Albumin LDL Cholesterol Direct TSH Urine WBC (Auto) 26.0 H 12/19/18 12/19/18 12/20/18 11:52 15:57 04:52 WBC RBC 2.78 L Hgb 8.1 L Hct 25.1 L RDW 18.5 H Plt Count Lymph % (Auto) [place] % (Auto) Eos % (Auto) [place] # Eos # Seg Neutrophils % Seg Neuts % (Manual) Lymphocytes % (Manual) Monocytes % (Manual) Eosinophils % (Manual) PT INR D-Dimer POC ABG pH POC ABG pCO2 POC ABG pO2 71 L Sodium Potassium Chloride Carbon Dioxide BUN Creatinine Glucose POC Glucose 169 H Calcium Iron Total Creatine Kinase CK-MB (CK-2) Troponin T Albumin LDL Cholesterol Direct TSH Urine WBC (Auto) 12/20/18 12/20/18 04:52 12:09 WBC RBC Hgb Hct RDW Plt Count Lymph % (Auto) [place] % (Auto) Eos % (Auto) [place] # Eos # Seg Neutrophils % Seg Neuts % (Manual) Lymphocytes % (Manual) Monocytes % (Manual) Eosinophils % (Manual) PT INR D-Dimer POC ABG pH POC ABG pCO2 POC ABG pO2 Sodium Potassium Chloride Carbon Dioxide BUN 4 L Creatinine Glucose POC Glucose 212 H Calcium 8.1 L Iron Total Creatine Kinase CK-MB (CK-2) Troponin T Albumin LDL Cholesterol Direct TSH Urine WBC (Auto) Allied health notes reviewed: nursing
== END 2018-12-21 20:00 | disposition home or self-care (01) | DRG 208 ==
LOC: ED 20:59 → CC1 12-12 00:38 → 4A 12-14 13:01
PROVIDERS: ADMIT Internal Medicine; ATTEND Internal Medicine
PROC: 5A1945Z Respiratory Ventilation, 24-96 Consecutive Hours (ICD-10-PCS; principal; 2018-12-11)
PROC: 0BH17EZ Insertion of Endotracheal Airway into Trachea, Via Natural or Artificial Opening (ICD-10-PCS; 2018-12-11)
PROC: 05HY33Z Insertion of Infusion Device into Upper Vein, Percutaneous Approach (ICD-10-PCS; 2018-12-11)
PROC: B544ZZA Ultrasonography of Left Jugular Veins, Guidance (ICD-10-PCS; 2018-12-11)
PROC: 4A033R1 Measurement of Arterial Saturation, Peripheral, Percutaneous Approach (ICD-10-PCS; 2018-12-12)
PROC: 4A023N7 Measurement of Cardiac Sampling and Pressure, Left Heart, Percutaneous Approach (ICD-10-PCS; 2018-12-16)
PROC: B2111ZZ Fluoroscopy of Multiple Coronary Arteries using Low Osmolar Contrast (ICD-10-PCS; 2018-12-16)
PROC: B2151ZZ Fluoroscopy of Left Heart using Low Osmolar Contrast (ICD-10-PCS; 2018-12-16)
PROC: B2131ZZ Fluoroscopy of Multiple Coronary Artery Bypass Grafts using Low Osmolar Contrast (ICD-10-PCS; 2018-12-16)
DX: J96.21 Acute and chronic respiratory failure with hypoxia (principal); I46.9 Cardiac arrest, cause unspecified; I49.01 Ventricular fibrillation; N17.0 Acute kidney failure with tubular necrosis; I21.A1 Myocardial infarction type 2; I50.23 Acute on chronic systolic (congestive) heart failure; I47.2 Ventricular tachycardia; N39.0 Urinary tract infection, site not specified; G93.40 Encephalopathy, unspecified; I25.10 Atherosclerotic heart disease of native coronary artery without angina pectoris; I25.5 Ischemic cardiomyopathy; I27.20 Pulmonary hypertension, unspecified; D69.6 Thrombocytopenia, unspecified; J44.9 Chronic obstructive pulmonary disease, unspecified; I48.91 Unspecified atrial fibrillation; F03.90 Unspecified dementia, unspecified severity, without behavioral disturbance, psychotic disturbance, mood disturbance, and anxiety; D64.9 Anemia, unspecified; I11.0 Hypertensive heart disease with heart failure; E89.0 Postprocedural hypothyroidism; I95.9 Hypotension, unspecified; E87.5 Hyperkalemia; R13.12 Dysphagia, oropharyngeal phase; Z95.1 Presence of aortocoronary bypass graft; Z95.810 Presence of automatic (implantable) cardiac defibrillator; Z82.49 Family history of ischemic heart disease and other diseases of the circulatory system; Z88.0 Allergy status to penicillin; Z79.899 Other long term (current) drug therapy; I25.2 Old myocardial infarction
CPT/HCPCS: 36415; 36600; 71045; 71275; 78582; 80048; 80053; 80061; 80307; 81001; 82270; 82550; 82553; 82607; 82728; 82747; 82803; 82962; 83550; 83735; 84439; 84443; 84484; 85007; 85025; 85027; 85379; 85610; 85730; 86022; 87040; 87070; 87086; 87205; 93005; 93010; 93306; 93459; 94002; 94003; 94640; 94644; 94760; G0378; A9270-GY; A9540; A9558; J0282; J1644; J1956; J2250; J2270; J2704; J3010; J7030; J7040; J7060; Q9967